=== PATIENT | female | born 1940 | race Caucasian/White ===

== ENCOUNTER 2016-07-04 10:01 | Outpatient (CLI) | payer MEDICARE, BC, OTHER ==
[2016-07-04] MEDS ORDERED: IOPAMIDOL-300 100 ML VIAL IVP ONE (12:53)
== END 2016-07-04 10:02 | disposition home or self-care (01) ==
DX: R06.00 Dyspnea, unspecified (principal)
CPT/HCPCS: 36415; 71260; 82565; Q9967

== ENCOUNTER 2016-07-27 10:57 | Outpatient (CLI) | payer MEDICARE, BC | END 2016-07-27 10:58 | disposition home or self-care (01) | LOC: LAB 10:57 | PROVIDERS: ATTEND Internal Medicine | DX: R05 Cough (principal); R50.9 Fever, unspecified; M79.1 Myalgia | CPT/HCPCS: 87275; 87276 ==

== ENCOUNTER 2016-10-26 09:46 | Outpatient (CLI) | payer MEDICARE, BC ==
--- NOTE | 2016-10-29 15:46 | Mammography Report ---
DIGITAL SCREENING MAMMOGRAM: 10/26/2016 CLINICAL INDICATION: A 76-year-old with family history of breast cancer for screening. COMPARISON: 01/2015, 07/2014, 12/2013, 06/2013, 12/2012, 11/2011. TECHNIQUE: Routine CC and MLO projections were obtained of the breasts. FINDINGS: The breasts demonstrate scattered fibroglandular densities bilaterally. Coarse and puncta te, typically benign calcifications are present. No suspicious masses, clustered microcalcifications , or regions of architectural distortion are identified. IMPRESSION: BENIGN FINDINGS. RECOMMENDATION: Routine annual screening unless otherwise clinically indicated. BIRADS CATEGORY 2 - BENIGN FINDINGS. STANDARD QUALIFYING STATEMENTS 1. This examination was reviewed with the aid of Computer-Aided Detection (CAD). 2. A negative or benign imaging report should not delay biopsy if clinically suspicious findings are present. Consider surgical consultation if warranted. More than 5% of cancers are not identified by i maging. 3. Dense breasts may obscure an underlying neoplasm. JOB #: [id number] EXT JOB #:[id number]
== END 2016-10-26 09:47 | disposition home or self-care (01) ==
LOC: DI 09:46
PROVIDERS: ATTEND Internal Medicine
DX: Z12.31 Encounter for screening mammogram for malignant neoplasm of breast (principal); Z80.3 Family history of malignant neoplasm of breast
CPT/HCPCS: 77067

== ENCOUNTER 2017-03-19 13:05 | Outpatient (CLI) | payer MEDICARE, BC ==
--- NOTE | 2017-03-19 17:39 | XRAY Report ---
TWO-VIEW CHEST: 03/19/2017 CLINICAL INDICATION: Cough. COMPARISON: CT 07/04/2016. FINDINGS: Frontal and lateral views of the chest demonstrate a normal cardiac silhouette. The lungs are clear. No effusion or pneumothorax is present. IMPRESSION: NORMAL CHEST. JOB #: [id number] EXT JOB #:[id number]
== END 2017-03-19 13:06 | disposition home or self-care (01) ==
LOC: DI 13:05
PROVIDERS: ATTEND Internal Medicine
DX: R05 Cough (principal)
CPT/HCPCS: 71020

== ENCOUNTER 2017-04-15 08:43 | Outpatient (CLI) | payer MEDICARE, BC ==
--- NOTE | 2017-04-15 13:44 | MRI Report ---
EXAM: MRI LUMBAR SPINE WITHOUT CONTRAST EXAM DATE: 04/15/2017 09:19 AM. CLINICAL HISTORY: Radiculopathy. Low back pain radiating to the right leg for 6 weeks. Fall 8 weeks a go. History of CLL. COMPARISON: 02/02/2011 radiograph. TECHNIQUE: Multiplanar, multisequence T1-weighted and fluid-sensitive sequences of the lumbar spine f rom T12 to S1 without contrast. Other: None. FINDINGS: Spinal Cord: The conus terminates at L2. The conus medullaris and cauda equina are unremarkable. Alignment: Normal. No scoliosis or spondylolisthesis. Bone Marrow: The prior radio graph demonstrates 5 nonrib-bearing lumbar vertebral bodies. No fracture s. Type I endplate changes at L4-L5. There is a benign lipoma within L1. Disk Levels/Facets: T11-T12: Unremarkable. T12-L1: Unremarkable. L1-L2: Unremarkable. L2-L3: Unremarkable. L3-L4: Small foraminal area protrusions result in minimal bilateral foraminal narrowing. L4-L5: Severe disk height loss is accompanied by desiccation. A broad-based disk bulge, moderate liga mentum flavum hypertrophy, and mild facet hypertrophy cause moderate spinal canal and mild bilateral foraminal narrowing. L5-S1: Mild right facet osteoarthritis has no neurological consequence. Musculature: Normal. No edema or fatty atrophy. Other: The partially visualized retroperitoneum is unremarkable. IMPRESSION: 1. Moderate spinal canal and mild bilateral foraminal narrowing at L4-L5 due to disk and posterior el ement degenerative changes. Comment: The following findings are so common in adults without low back pain that while we report th eir presence, they must be interpreted with caution and in the context of the clinical situation. (Re donya Saenz et al, Spine 2001) Prevalence of findings in patients without low back pain: Disk degeneration (any evidence): 92% Disk desiccation/T2 signal loss: 83% Disk height loss: 56% Disk bulge: 64% Disk protrusion: 32% Annular tear/high intensity zone: 38% [facility] Referring Provider Line: [phone] SITE ID: [id number]
== END 2017-04-15 08:44 | disposition home or self-care (01) ==
LOC: DI 08:43
PROVIDERS: ATTEND Orthopaedic Surgery
DX: M51.36 Other intervertebral disc degeneration, lumbar region (principal); M47.896 Other spondylosis, lumbar region
CPT/HCPCS: 72148

== ENCOUNTER 2017-11-22 11:09 | Outpatient (CLI) | payer MEDICARE, BC ==
--- NOTE | 2017-11-28 14:33 | Mammography Report ---
Procedure Date: 11/22/2017 Accession Number: [id number] / [id number] Procedure: [facility] - Screening Mammo Dig Bilat CPT Code: FULL RESULT: EXAM: Screening Mammo Dig Bilat DATE: 11/22/2017 11:30 AM CLINICAL HISTORY: 77-year-old with family history of breast cancer for screening TECHNIQUE: Bilateral CC and MLO views were obtained. COMPARISON: 10/26/2016, 01/19/2015, 08/06/2014, 12/30/2013, 07/15/2013, 01/05/2013, 12/31/2012, 11/28/2011, 10/30/2010, 10/25/2009 FINDINGS: The breasts demonstrate diffuse fatty replacement bilaterally. Coarse and punctate, typically benign calcifications are present. No suspicious masses, clustered microcalcifications, or regions of architectural distortion are identified. IMPRESSION: Benign findings RECOMMENDATION: Routine annual screening unless otherwise clinically indicated. BIRADS CATEGORY 2: Benign findings STANDARD QUALIFYING STATEMENTS: 1. This examination was reviewed with the aid of Computer-Aided Detection (CAD). 2. A negative or benign imaging report should not delay biopsy if clinically suspicious findings are present. Consider surgical consultation if warrented. More than 5% of cancers are not identified by imaging. 3. Dense breasts may obscure an underlying neoplasm.
== END 2017-11-22 11:10 | disposition home or self-care (01) ==
LOC: DI 11:09
PROVIDERS: ATTEND Internal Medicine
DX: Z12.31 Encounter for screening mammogram for malignant neoplasm of breast (principal)
CPT/HCPCS: 77067

== ENCOUNTER 2018-01-16 22:49 | Outpatient (CLI) | payer MEDICARE, BC ==
--- NOTE | 2018-01-17 00:44 | Ultrasound Report ---
Procedure Date: 01/17/2018 Accession Number: [id number] / [id number] Procedure: US - Duplex Ext Veins Right CPT Code: FULL RESULT: EXAM: RIGHT LOWER EXTREMITY VENOUS ULTRASOUND EXAM DATE: 01/16/2018 11:56 PM. CLINICAL HISTORY: HX DVT, R LEG PAIN AND EDEMA. COMPARISON: None. TECHNIQUE: Real-time sonographic vascular imaging was performed by the reproductive endocrinologist through the lower extremity utilizing both color-flow and Doppler spectral analysis. Multiple nutrition representative static images were saved for review. FINDINGS: Common Femoral Vein (CFV): Normal. CFV-GSV Junction: Normal. Profunda Femoral Vein (PFV): Normal. Femoral Vein (FV) Prox: Normal. Femoral Vein (FV) Mid: Normal. Femoral Vein (FV) Dist: Normal. Popliteal Vein: Normal. Posterior Tibial Veins: The visualized segments are normal. Peroneal Veins: The visualized segments are normal. Contralateral Side CFV: Normal. Other: None. IMPRESSION: No evidence for deep venous thrombosis. [facility]
== END 2018-01-16 22:50 | disposition home or self-care (01) ==
LOC: DI 22:49
PROVIDERS: ATTEND Internal Medicine
DX: M79.604 Pain in right leg (principal); R60.9 Edema, unspecified; Z86.718 Personal history of other venous thrombosis and embolism

== ENCOUNTER 2018-07-28 09:32 | Outpatient (CLI) | payer MEDICARE, BC | END 2018-07-28 09:33 | disposition critical access hospital (66) | LOC: EMS 09:32 | PROVIDERS: ATTEND Surgery | DX: M25.562 Pain in left knee (principal) | CPT/HCPCS: A0425; A0429 ==

== ENCOUNTER 2018-07-28 09:46 | Emergency (ER) | payer MEDICARE, BC ==
[2018-07-28 09:56] VITALS: BP 163/75
--- NOTE | 2018-07-28 10:50 | ED Physician Documentation ---
PD HPI LOWER EXT INJURY - Stated complaint Stated Complaint: LEFT KNEE PX - Chief complaint Chief Complaint: Ext Problem - History obtained from History obtained from: Patient - History of Present Illness PD HPI LOW EXT INJURY LOCATION: Left, Knee Type of injury: Blunt / blow (she was just kneeling doing work and shifted pressure to left knee and felt sudden pop and pain in knee. There is swelling of the knee. Pain with ROM and weight bearing.) Timing - details: Abrupt onset, Still present Review of Systems Constitutional: denies: Fever, Chills Nose: denies: Rhinorrhea / runny nose, Congestion Throat: denies: Sore throat Respiratory: denies: Cough Skin: denies: Abrasion (s), Laceration (s) Neurologic: denies: Focal weakness, Numbness PD PAST MEDICAL HISTORY - Past Medical History Past Medical History: Yes Cardiovascular: Hypertension, Deep vein thrombosis, Pulmonary embolism Respiratory: None Endocrine/Autoimmune: None GI: GERD : None HEENT: Chronic vision loss, Glaucoma, Dental implants Psych: None Musculoskeletal: Chronic back pain Derm: None - Past Surgical History 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 HEENT: Cataracts - Present Medications Home Medications: Ambulatory Orders Medication Instructions Recorded Confirmed Omeprazole [PriLOSEC] 20 mg PO DAILY 09/14/13 05/14/18 RX: Hydrochlorothiazide 25 mg PO DAILY 09/14/13 05/14/18 Aspirin [Children's Aspirin] 81 mg PO DAILY 09/15/13 05/14/18 RX: Naproxen 375 mg PO BID #20 tablet 07/28/18 RX: Tramadol HCl 50 mg PO Q6H PRN #20 tablet 07/28/18 - Allergies Allergies/Adverse Reactions: Allergies Allergy/AdvReac Type Severity Reaction Status Date / Time morphine Allergy Nausea Unverified 11/11/13 15:38 Penicillins Allergy Nausea Unverified 11/11/13 15:37 codeine AdvReac Mild Nausea Verified 09/15/13 18:12 hydrocodone bitartrate * AdvReac Mild Nausea Verified 09/15/13 18:13 [From Vicodin] oxycodone HCl * AdvReac Mild Nausea Verified 09/15/13 18:13 [From Percocet] - Social History Does the pt smoke?: No Smoking Status: Never smoker PD ED PE NORMAL - Vitals Vital signs reviewed: Yes - General General: Alert and oriented X 3, No acute distress, Well developed/nourished - Derm Derm: Normal color, Warm and dry - Extremities Extremities: Other (left knee with mild effusion, limited ROM due to pain. Tender diffusely, but most anteriorly. Stress testing is not tender for valgus/varus, hurts with Drawer and too painful to test on laxity. No gross laxi ty. Foot rotation causes knee pain suggesting meniscal. ) - Neuro Neuro: Alert and oriented X 3, No motor deficit, No sensory deficit Results - Vitals Vitals: Vital Signs - 24 hr 07/28/18 09:54 Temperature 36.6 C Heart Rate 67 Respiratory 16 Rate Blood Pressure 163/75 H O2 Saturation 96 Oxygen O2 Source Room air - Rads (name of study) knee xray Radiology: Prelim report reviewed (no fractures), EMP read contemporaneously, See rad report PD MEDICAL DECISION MAKING - ED course Complexity details: considered differential (sounds likely to be meniscal injury, though consider ACL. ), d/w patient Departure - Departure Disposition: 01 Home, Self Care Clinical Impression: Knee strain Qualifiers: Encounter type: initial encounter Laterality: left Qualified Code(s): S86.912A - Strain of unspecified muscle(s) and tendon(s) at lower leg level, left leg, initial encounter Acute meniscal injury of knee Qualifiers: Encounter type: initial encounter Laterality: left Qualified Code(s): S83.8X2A - Sprain of other specified parts of left knee, initial encounter Condition: Stable Record reviewed to determine appropriate education?: Yes Instructions: ED Meniscal Injury Knee Poss Follow-Up: Belen Ryan MD [Primary Care Provider] - Alfonso Thornton MD [Provider Admit Priv/Credential] - Prescriptions: RX: Naproxen 375 mg PO BID #20 tablet RX: Tramadol HCl 50 mg PO Q6H PRN #20 tablet PRN Reason: Pain Comments: Use a knee immobilizer when up and around to protect the ligaments and cartilage. Take some of the weight off with the walker as needed. Use an anti- inflammatory such as naproxen twice daily for the next 7-10 days. Take it with food. Add Tylenol and/or tramadol if needed for pains. Follow-up with orthopedics later this week or next week if to see how much improvement there is band., Call for an appointment. This sounds likely to have been a meniscal injury and majority of these will get better with just conservative treatment. Discharge Date/Time: 07/28/18 12:29
[2018-07-28] MEDS ORDERED: traMADol 50 MG TABLET PO STA (11:19)
[2018-07-28] MEDS ORDERED: ACETAMINOPHEN 325 MG TABLET PO STA (11:19)
--- NOTE | 2018-07-28 12:52 | XRAY Report ---
Reason: left knee injury Procedure Date: 07/28/2018 Accession Number: [id number] / [id number] Procedure: XR - Knee 4 View LT CPT Code: FULL RESULT: EXAM: LEFT KNEE RADIOGRAPHY EXAM DATE: 07/28/2018 10:54 AM. CLINICAL HISTORY: Left knee injury. COMPARISON: None. TECHNIQUE: 4 views. FINDINGS: Bones: No acute fracture or bony lesion. No bony erosions. Joints: Normal alignment. Small left knee effusion. No dislocation. Medial and lateral compartment chondrocalcinosis. Soft Tissues: No radiopaque foreign bodies. IMPRESSION: 1. No acute osseous abnormalities. 2. Small left knee effusion. [facility]
== END 2018-07-28 12:29 | disposition home or self-care (01) ==
LOC: EDUNIT# → ED 09:46
DX: S86.912A Strain of unspecified muscle(s) and tendon(s) at lower leg level, left leg, initial encounter (principal); S83.8X2A Sprain of other specified parts of left knee, initial encounter; X50.1XXA Overexertion from prolonged static or awkward postures, initial encounter; Y93.E9 Activity, other interior property and clothing maintenance; I10 Essential (primary) hypertension; Z86.718 Personal history of other venous thrombosis and embolism; Z86.711 Personal history of pulmonary embolism; Z79.82 Long term (current) use of aspirin
CPT/HCPCS: 73564; 99283; A9270

== ENCOUNTER 2018-08-28 12:11 | Outpatient (CLI) | payer MEDICARE, BC ==
--- NOTE | 2018-08-29 11:16 | MRI Report ---
Reason: PAIN INSTABILITY Procedure Date: 08/28/2018 Accession Number: [id number] / [id number] Procedure: MRI - Knee LT W/O CPT Code: FULL RESULT: EXAM: LEFT KNEE MRI WITHOUT CONTRAST EXAM DATE: 08/28/2018 01:10 PM. CLINICAL HISTORY: Left knee pain and instability. COMPARISON: KNEE 3 VIEW LT 08/11/2018 1:22 PM. TECHNIQUE: Multiplanar, multisequence T1-weighted and fluid-sensitive sequences of the knee without contrast. Other: None. FINDINGS: Bones and Articular Cartilage: No acute fracture or bone lesions. No marrow edema. Grade 2 chondromalacia at the medial femoral condyle and medial tibial plateau. Grade 2 chondromalacia at the lateral femoral condyle. Grade 3 chondromalacia at the posterior aspect of the lateral tibial plateau. Small subcortical cyst and marrow edema at the lateral patellar facet. No patellar subluxation. Medial Meniscus: The medial meniscus is intact. Lateral Meniscus: There is near-complete type diskoid lateral meniscus. There is inferior surface fraying at the diskoid lateral meniscus. Cruciate Ligaments: The anterior and posterior cruciate ligaments are intact. Collateral Ligaments: The medial collateral and lateral collateral ligamentous structures are intact. Tendons: The quadriceps, patellar, semimembranosus, and popliteus tendons are unremarkable. Musculature: No edema or fatty atrophy. Other: Small joint effusion. No popliteal cyst. No loose bodies. The medial and lateral retinacula are intact. The subcutaneous tissues and fat pads are unremarkable. IMPRESSION: 1. Chondromalacia at the medial and lateral compartments. 2. Near-complete type diskoid lateral meniscus. Inferior surface fraying at the diskoid lateral meniscus. 3. Small joint effusion. [facility] MUSCULOSKELETAL RADIOLOGY SECTION
== END 2018-08-28 12:12 | disposition home or self-care (01) ==
LOC: DI 12:11
PROVIDERS: ATTEND Internal Medicine
DX: M94.262 Chondromalacia, left knee (principal); M25.462 Effusion, left knee; M23.301 Other meniscus derangements, unspecified lateral meniscus, left knee

== ENCOUNTER 2018-11-19 11:12 | Outpatient (CLI) | payer MEDICARE, BC | END 2018-11-19 11:13 | disposition home or self-care (01) | LOC: DI 11:12 | PROVIDERS: ATTEND Internal Medicine | DX: R01.1 Cardiac murmur, unspecified (principal) | CPT/HCPCS: 93306 ==

== ENCOUNTER 2019-02-04 16:19 | Outpatient (CLI) | payer MEDICARE, BC ==
--- NOTE | 2019-02-04 17:01 | Mammography Report ---
Reason: SCREENING MAMMO Procedure Date: 02/04/2019 Accession Number: [id number] / [id number] Procedure: [facility] - Screening Mammo w/Anselmo CPT Code: FULL RESULT: EXAM: Screening Mammo w/Anselmo DATE: 02/04/2019 4:49 PM CLINICAL HISTORY: Routine screening. No reported personal history of breast cancer. Family history of breast cancer in mother in her 50s. TECHNIQUE: (B) - Bilateral CC and MLO views were obtained. COMPARISON: 11/22/2017 through 08/06/2014. PARENCHYMAL PATTERN: (A) - The breasts demonstrate scattered fibroglandular densities bilaterally. FINDINGS: Bilateral breasts: There are no suspicious masses, calcifications, or areas of distortion. IMPRESSION: Negative examination. BI-RADS category 1. RECOMMENDATION: (ANNUAL) - Recommend routine annual screening mammography. BI-RADS CATEGORY: STANDARD QUALIFYING STATEMENTS: 1. This examination was not reviewed with the aid of Computer-Aided Detection (CAD). 2. A negative or benign imaging report should not preclude biopsy if clinically suspicious findings are present. 3. Dense breasts may obscure an underlying neoplasm. 4. This examination was reviewed with the aid of 3D breast imaging (tomosynthesis).
== END 2019-02-04 16:20 | disposition home or self-care (01) ==
LOC: DI 16:19
PROVIDERS: ATTEND Internal Medicine
DX: Z12.31 Encounter for screening mammogram for malignant neoplasm of breast (principal); Z80.3 Family history of malignant neoplasm of breast
CPT/HCPCS: 77063; 77067

== ENCOUNTER 2020-02-23 11:47 | Emergency (ER) | payer MEDICARE, BC ==
--- NOTE | 2020-02-23 14:24 | ED Physician Documentation ---
History of Present Illness - Stated complaint Stated Complaint: L SIDE PX - Chief complaint Chief Complaint: Trauma Ch/Bk - Additonal information Additional information: 79-year-old female presents to the emergency department with left lower anterior rib pain after a fall about 1 week ago. She reports walking her dog and stepped onto uneven pavement and fell forward onto her left side. She denies any loss of consciousness and has no neck pain however she is exquisitely tender with palpation of the lower anterior ribs. She denies that she has shortness of breath no hemoptysis. She is mostly concerned that the pain is not getting be tter and wants to make sure there is no fracture. Review of Systems Constitutional: denies: Fever, Chills Ears: denies: Loss of hearing, Ear pain Nose: denies: Rhinorrhea / runny nose, Congestion, Epistaxis Cardiac: denies: Chest pain / pressure, Palpitations, Pedal edema, Calf pain Respiratory: denies: Dyspnea, Cough, Hemoptysis, Wheezing GI: denies: Abdominal Pain, Abdominal Swelling, Nausea, Vomiting : denies: Dysuria, Frequency, Unable to Void, Incontinent, LMP, Irregular menses Skin: denies: Rash, Lesions, Abrasion (s) Musculoskeletal: reports: Other (left lower anterior rib pain). 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 HEENT: Cataracts - Present Medications Home Medications: Ambulatory Orders Medication Instructions Recorded Confirmed Hydrochlorothiazide 25 mg PO DAILY 09/14/13 12/09/19 Omeprazole [PriLOSEC] 20 mg PO DAILY 09/14/13 12/09/19 Aspirin [Children's Aspirin] 81 mg PO DAILY 09/15/13 12/09/19 Anastrozole 1 mg PO DAILY 02/04/19 12/09/19 Multivitamin [Multivitamins] 1 tab PO DAILY 03/11/19 12/09/19 Naproxen 375 mg PO PRN PRN 03/11/19 12/09/19 - Allergies Allergies/Adverse Reactions: Allergies Allergy/AdvReac Type Severity Reaction Status Date / Time morphine Allergy Nausea Verified 02/23/20 12:06 Penicillins Allergy Nausea Verified 02/23/20 12:06 codeine AdvReac Mild Nausea Verified 02/23/20 12:06 hydrocodone bitartrate * AdvReac Mild Nausea Verified 02/23/20 12:06 [From Vicodin] oxycodone HCl * AdvReac Mild Nausea Verified 02/23/20 12:06 [From Percocet] - Social History Does the pt smoke?: No Smoking Status: Never smoker PD ED PE EXPANDED - General General: Alert, No acute distress, Well developed/nourished. No: Anxious, In Pain - Eyes Eyes: PERRL, Normal accommodation - Neck Neck: Supple w/out meningeal sx. No: Stiff neck, Adenopathy, Limited ROM - Cardiac Cardiac: Regular Rate, Femoral strong equal, Pedal strong equal, Cap refill < 2 sec. No: Murmur Present - Respiratory Respiratory: Clear to ausultation ligia, Other (tenderness with palpation lowr aterior and laterl rib wall. no ecchymosis/crepitus). No: Distress, Labored, Retractions, Wheezing, Rhonchi - Abdomen Abdomen: Normal Bowel sounds. No: Tender to palpation - Extremities Extremities: Normal - Neuro Neuro: Alert and Oriented X 3, Normal gait, Normal speech - GCS Eye Opening: Spontaneous Motor: Obeys Commands Verbal: Oriented Total: 15 Results - Vitals Vitals: Vital Signs - 24 hr 02/23/20 02/23/20 12:06 13:56 Temperature 36.7 C 36.6 C Heart Rate 77 69 Respiratory 20 16 Rate Blood Pressure 180/67 H 167/87 H O2 Saturation 96 98 Oxygen O2 Source Room air - Rads (name of study) cxr Radiology: Final report received (Gross displaced left rib fracture. No acute cardiopulmonary pathology) PD MEDICAL DECISION MAKING - ED course Complexity details: reviewed results, d/w patient ED course: The ER with left lower lateral anterior rib pain after fall approximately 1 week ago. The pain has not improved and she is concerned that she may have rib fractures. She is using incentive spirometry at home. - Straight does not reveal any obviously displaced or gross rib fracture. No pneumothorax. At this time she may have an occult rib fracture but without significant displacement or pneumothorax treatment would remain the same at this time. I recommend she continue incentive spirometry as well as use Tylenol and a limited amount of NSAID at home. Her vital signs are unremarkable, she has no hypoxia and her exam is otherwise very reassuring. Advised to follow-up with PCP emergent return precautions discussed. Departure - Departure Disposition: Home, Self Care Clinical Impression: Rib pain on left side Condition: Stable Record reviewed to determine appropriate education?: Yes Instructions: ED Contusion Chest Wall Follow-Up: Belen Ryan MD [Primary Care Provider] - Within 1 week Comments: The x-ray does not show any obviously broken ribs. I would recommend that you continue to use the incentive spirometer at home as you have been. It is okay to take Tylenol and ibuprofen as you have for any discomfort. Return to the emergency department if you have fevers difficulty breathing bloody sputum or feel that your symptoms are not improving most likely that you do have bruising
--- NOTE | 2020-02-23 15:14 | XRAY Report ---
PROCEDURE: Ribs w/PA Chest LT INDICATIONS: fall/r/o fx TECHNIQUE: 2 views of the left ribs were acquired, along with a single view chest. COMPARISON: None FINDINGS: Surgical changes and devices: None. Bones and chest wall: No fractures or dislocations. No suspicious bony lesions. Overlying soft tis sues appear unremarkable. Lungs and pleura: No pleural effusions or pneumothorax. Lungs appear clear. Mediastinum: Mediastinal contours appear normal. Heart size is normal. IMPRESSION: No gross displaced left rib fracture. No acute cardiopulmonary pathology. Reviewed by: Fawad Marie MD on 02/23/2020 3:13 PM PDT Approved by: Fawad Marie MD on 02/23/2020 3:13 PM PDT Station ID: [id number]
[2020-02-23 15:20] VITALS: BP 159/82
== END 2020-02-23 15:28 | disposition home or self-care (01) ==
LOC: ED 11:47
DX: R07.81 Pleurodynia (principal); W01.0XXA Fall on same level from slipping, tripping and stumbling without subsequent striking against object, initial encounter; Y93.K1 Activity, walking an animal; Y92.480 Sidewalk as the place of occurrence of the external cause; I10 Essential (primary) hypertension; Z86.718 Personal history of other venous thrombosis and embolism; Z86.711 Personal history of pulmonary embolism; Z79.82 Long term (current) use of aspirin
CPT/HCPCS: 99282; 99283

== ENCOUNTER 2020-03-01 14:14 | Outpatient (CLI) | payer MEDICARE, BC | END 2020-03-01 14:15 | disposition critical access hospital (66) | LOC: EMS 14:14 | PROVIDERS: ATTEND Surgery | DX: S01.01XA Laceration without foreign body of scalp, initial encounter (principal); W01.0XXA Fall on same level from slipping, tripping and stumbling without subsequent striking against object, initial encounter; Y92.512 Supermarket, store or market as the place of occurrence of the external cause | CPT/HCPCS: A0425; A0429 ==

== ENCOUNTER 2020-03-01 14:32 | Emergency (ER) | payer MEDICARE, BC ==
[2020-03-01] MEDS: SODIUM CHLORIDE 0.9% 1,000 ML IV STA (15:32)
[2020-03-01] MEDS: ONDANSETRON 4 MG/2 ML VIAL IVP STA (15:32)
[2020-03-01 15:53] LABS: BASOPHILS % (AUTO) 0.2 %; EOSINOPHILS % (AUTO) 1.8 %; HGB - HEMOGLOBIN 12.8 g/dL (12.0-16.0); MEAN CORPUSCULAR HEMOGLOBIN 26.8 pg (27.0-31.0); MEAN CORPUSCULAR HGB CONC 30.8 g/dL (32.0-36.0); MEAN PLATELET VOLUME 8.7 fL (7.9-10.8); MONOCYTES % (AUTO) 4.5 %; NEUTROPHILS % (AUTO) 41.1 %; PLT - PLATELET COUNT 224 10^3/uL (130-450); RED BLOOD COUNT 4.77 10^6/uL (4.20-5.40); WHITE BLOOD COUNT 17.4 x10^3/uL (4.8-10.8)
[2020-03-01 15:55] LABS: ABNORMAL LYMPHS % (MANUAL) 0 %; BAND NEUTROPHILS % (MANUAL) 0 %
[2020-03-01 16:03] LABS: ALBUMIN 4.2 g/dL (3.2-5.5); ALBUMIN/GLOBULIN RATIO 1.4 (1.0-2.2); BILIRUBIN,TOTAL 0.6 mg/dL (0.2-1.0); CALCIUM 9.1 mg/dL (8.5-10.3); CREATININE 0.9 mg/dL (0.4-1.0); TOTAL PROTEIN 7.2 g/dL (6.7-8.2)
--- NOTE | 2020-03-01 16:40 | ED Physician Documentation ---
PD HPI HEAD INJURY - Stated complaint Stated Complaint: FALL/HEAD LAC - Chief complaint Chief Complaint: Trauma Ch/Bk - History obtained from History obtained from: Patient, Family - History of Present Illness Mechanism of head injury: Fell Where head injury occurred: Other (store) Timing - onset: Today Location of injury: Back Quality of pain: Pain, Throbbing Associated symptoms: LOC, Amnesia, Nausea / vomiting, Neck pain. No: AMS, Paresthesias, Seizures, Ear drainage, Nasal drainage Symptoms improve with: Rest Symptoms worsen with: Palpation, Movement Contributing factors: Anticoagulated Similar symptoms before: Has not had sx before Recently seen: Emergency Dept - Additional information Additional information: 79-year-old female was in the store today when she had a fall falling backwards onto the back of her head. She tripped over a stand. She had a brief loss of consciousness and now has a headache and some neck pain. She denies any numbness or tingling or weakness. She has minimal nausea. She has some anxiety. She is on aspirin but not any other blood thinner. She has a remote history of DVT/PE. She has had 5 falls in the past 2 months. She denies tremor. She is on lisinopril/HCTZ for hypertension. Review of Systems Constitutional: denies: Fever Eyes: denies: Decreased vision Ears: denies: Ear pain Nose: denies: Congestion Throat: denies: Sore throat Cardiac: denies: Chest pain / pressure, Palpitations Respiratory: denies: Dyspnea, Cough GI: reports: Nausea. denies: Abdominal Pain, Vomiting : denies: Dysuria, Frequency Skin: denies: Rash Musculoskeletal: reports: Neck pain. denies: Back pain, Extremity pain Neurologic: reports: Headache, Head injury, LOC. 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 HEENT: Cataracts - Present Medications Home Medications: Ambulatory Orders Medication Instructions Recorded Confirmed Hydrochlorothiazide 25 mg PO DAILY 09/14/13 12/09/19 Omeprazole [PriLOSEC] 20 mg PO DAILY 09/14/13 12/09/19 Aspirin [Children's Aspirin] 81 mg PO DAILY 09/15/13 12/09/19 Anastrozole 1 mg PO DAILY 02/04/19 12/09/19 Multivitamin [Multivitamins] 1 tab PO DAILY 03/11/19 12/09/19 Naproxen 375 mg PO PRN PRN 03/11/19 12/09/19 - Allergies Allergies/Adverse Reactions: Allergies Allergy/AdvReac Type Severity Reaction Status Date / Time morphine Allergy Nausea Verified 03/01/20 14:40 Penicillins Allergy Nausea Verified 03/01/20 14:40 codeine AdvReac Mild Nausea Verified 03/01/20 14:40 hydrocodone bitartrate * AdvReac Mild Nausea Verified 03/01/20 14:40 [From Vicodin] oxycodone HCl * AdvReac Mild Nausea Verified 03/01/20 14:40 [From Percocet] - Social History Does the pt smoke?: No Smoking Status: Never smoker PD ED PE NORMAL - Vitals Vital signs reviewed: Yes (hypertensive) - General General: Alert and oriented X 3, No acute distress, Well developed/nourished - HEENT HEENT: PERRL, EOMI - Neck Neck: Supple, no meningeal sign, Other - Cardiac Cardiac: RRR, No murmur - Respiratory Respiratory: No respiratory distress, Clear bilaterally - Abdomen Abdomen: Normal bowel sounds, Soft, Non tender, Non distended, No organomegaly - Back Back: No CVA TTP, No spinal TTP - Derm Derm: Normal color, Warm and dry, No rash - Extremities Extremities: No deformity, No edema - Neuro Neuro: Alert and oriented X 3, purchasing/receiving 2-12 intact, No motor deficit, No sensory deficit, Normal speech Eye Opening: Spontaneous Motor: Obeys Commands Verbal: Oriented GCS Score: 15 - Psych Psych: Normal mood, Normal affect Results - Vitals Vitals: Vital Signs - 24 hr 03/01/20 03/01/20 03/01/20 14:40 14:45 16:45 Temperature 36.2 C L Heart Rate 70 72 75 Respiratory 16 16 16 Rate Blood Pressure 159/75 H 155/79 H 148/75 H O2 Saturation 99 99 99 Oxygen O2 Source Room air - Labs Labs: Laboratory Tests 03/01/20 03/01/20 15:40 15:40 WBC 17.4 H RBC 4.77 Hgb 12.8 Hct 41.5 MCV 87.0 MCH 26.8 L MCHC 30.8 L RDW 15.0 Plt Count 224 MPV 8.7 Neut # (Auto) Not Reportable Lymph # (Auto) Not Reportable Harlan # (Auto) Not Reportable Eos # (Auto) Not Reportable Baso # (Auto) Not Reportable Absolute Nucleated RBC Not Reportable Total Counted 100 Band Neuts % (Manual) 0 Abnorm Lymph % (Manual) 0 Nucleated RBC % Not Reportable Neutrophils # (Manual) 6.4 Lymphocytes # (Manual) 10.4 H Monocytes # (Manual) 0.5 Eosinophils # (Manual) 0.0 Basophils # (Manual) 0.0 Differential Comment MANUAL DIFFERENTIAL Manual Slide Review Indicated Platelet Estimate NORMAL (130-450,000) Platelet Morphology NORMAL APPEARANCE RBC Morph Micro Appear 1+ ANISOCYTOSIS Sodium 133 L Potassium 3.8 Chloride 95 L Carbon Dioxide 27 Anion Gap 11.0 BUN 17 Creatinine 0.9 Estimated GFR (MDRD) 61 L Glucose 97 Calcium 9.1 Total Bilirubin 0.6 AST 25 ALT 20 Alkaline Phosphatase 92 Total Protein 7.2 Albumin 4.2 Globulin 3.0 Albumin/Globulin Ratio 1.4 Lipase 35 - Rads (name of study) ct cervical spine Radiology: Prelim report reviewed (Impression: Multilevel degenerative changes without visualized fracture. ), EMP read indepedently, See rad report CT head without Radiology: Prelim report reviewed (Impression: 1. Widened hyperdensities within the anterior falx most consistent with hemorrhage.), EMP read indepedently, See rad report Procedures - IVC sono (time) 1520 Bedside IVC sono: IVC measures (cm) (1.22), Dehydration (est 1 liter deficit) PD MEDICAL DECISION MAKING - ED course Complexity details: reviewed old records, reviewed results, re-evaluated p atient, considered differential, d/w patient, d/w family ED course: 79-year-old female with a round level fall striking the back of her head and having loss of consciousness has a small anterior falx bleed. She is not on the anticoagulation we had previously presumed. She has a laceration to the occiput about 3.5cm. This is not repaired prior to transport as the transport team arrived as we were preparing for repair. The patient is mildly dehydrated on interrogation of the inferior vena cava and she is administered saline as well. Dr. Fransisco menjivar the emergency department doctor at [facility] is consulted in the case and accepts patient in transfer. She recommends administration of PCC. At the time my conversation with her the thought was the patient was anticoagulated and she is not. This was not administered. Departure - Departure Disposition: 02 Transfer Acute Care Hosp Clinical Impression: Dehydration, Frequent falls Traumatic intracerebral hemorrhage with loss of consciousness Qualifiers: Encounter type: initial encounter Laterality: unspecified laterality Qualified Code(s): S06.369A - Traumatic hemorrhage of cerebrum, unspecified, with loss of consciousness of unspecified duration, initial encounter Occipital scalp laceration Qualifiers: Encounter type: initial encounter Qualified Code(s): S01.01XA - Laceration without foreign body of scalp, initial encounter Condition: Stable
[2020-03-01 16:43] LABS: LYMPHOCYTES # (MANUAL) 10.4 10^3/uL (1.5-3.5); LYMPHOCYTES % (MANUAL) 60 %; MONOCYTES # (MANUAL) 0.5 10^3/uL (0.0-1.0)
[2020-03-01 16:44] LABS: PLATELET ESTIMATE, MANUAL NORMAL (130-450,000) (NORMAL); PLATELET MORPHOLOGY NORMAL APPEARANCE (NORMAL); RBC MORPHOLOGY (MULTIPLE) 1+ ANISOCYTOSIS (NORMAL)
--- NOTE | 2020-03-01 16:44 | CT Report ---
PROCEDURE: HEAD WO INDICATIONS: head injury TECHNIQUE: Noncontrast 4.5 mm thick angled axial sections acquired from the foramen magnum to the vertex. For r adiation dose reduction, the following was used: automated exposure control, adjustment of mA and/or kV according to patient size. COMPARISON: None. FINDINGS: Image quality: Excellent. The ventricular system and cortical sulci demonstrate atrophy, consistent for patient's stated age. There are areas of hypodensity in the periventricular and subcortical white matter. There is a widene d appearance of hyperdensity within the anterior falx with a greatest transverse dimension measuring 3 mm. No mass lesion or midline shift. Brainstem is unremarkable. Right posterior parietal occipita l scalp hematoma is present. Globes are symmetrical. Sinuses are aerated. Osseous structures are intact. IMPRESSION: 1. Widened hyperdensity within the anterior falx most consistent with hemorrhage. The above findings were discussed with Dr. Jason Joyce on 03/01/2020 at 4:30 PM. Reviewed by: Allyn Rider MD on 03/01/2020 4:43 PM PDT Approved by: Allyn Rider MD on 03/01/2020 4:43 PM PDT Station ID: [id number]
[2020-03-01 16:45] LABS: DIFFERENTIAL COMMENT MANUAL DIFFERENTIAL
--- NOTE | 2020-03-01 16:48 | CT Report ---
PROCEDURE: CERVICAL SPINE WO INDICATIONS: poly trauma head and neck injury TECHNIQUE: Noncontrast 3 mm thick sections acquired from the skull base to the T4 level. Sagittal and coronal r eformats were then constructed. For radiation dose reduction, the following was used: automated exp osure control, adjustment of mA and/or kV according to patient size. COMPARISON: None. FINDINGS: Image quality: Excellent. Bones: No fractures or dislocations. Visualized superior ribs are intact. Multilevel degenerative changes including severe disc space narrowing at C3-4, C4-5, C5-6, C6-7 and C7-T1. There is trace ret rolisthesis of C4 on C5. Soft tissues: Prevertebral soft tissues are normal in thickness. No paravertebral hematomas. No ap ical pneumothoraces. IMPRESSION: Multilevel degenerative changes without visualized fracture. Reviewed by: Allyn Rider MD on 03/01/2020 4:46 PM PDT Approved by: Allyn Rider MD on 03/01/2020 4:46 PM PDT Station ID: [id number]
[2020-03-01 17:22] LABS: BILIRUBIN,URINE NEGATIVE (NEGATIVE); CLARITY,URINE CLEAR (CLEAR); GLUCOSE, URINE (UA) NEGATIVE (NEGATIVE); KETONES,URINE (UA) TRACE mg/dL (NEGATIVE); LEUKOCYTE ESTERASE, URINE TRACE (NEGATIVE); NITRITE,URINE NEGATIVE (NEGATIVE); OCCULT BLOOD,URINE NEGATIVE (NEGATIVE); PROTEIN,URINE NEGATIVE (NEGATIVE); UROBILINOGEN,URINE 0.2 (NORMAL) E.U./dL (NORMAL)
[2020-03-01 17:36] LABS: BACTERIA,URINE None Seen /HPF (None Seen); RBC,URINE None Seen /HPF (0-5); SQUAMOUS EPITHELIAL CELL,UR MOD Squamous (<= Few)
[2020-03-01 18:06] VITALS: BP 168/89
== END 2020-03-01 18:11 | disposition short-term general hospital (02) ==
LOC: EDUNIT# → ED 14:32
DX: S06.369A Traumatic hemorrhage of cerebrum, unspecified, with loss of consciousness of unspecified duration, initial encounter (principal); S01.01XA Laceration without foreign body of scalp, initial encounter; W01.0XXA Fall on same level from slipping, tripping and stumbling without subsequent striking against object, initial encounter; Y92.512 Supermarket, store or market as the place of occurrence of the external cause; E86.0 Dehydration; Z91.81 History of falling; I10 Essential (primary) hypertension; Z86.718 Personal history of other venous thrombosis and embolism; Z79.82 Long term (current) use of aspirin
CPT/HCPCS: 36415; 70450; 72125; 80053; 81001; 81003; 83690; 85025; 87086; 96374; 99285

== ENCOUNTER 2020-03-14 16:02 | Outpatient (CLI) | payer MEDICARE, BC ==
--- NOTE | 2020-03-14 16:48 | XRAY Report ---
PROCEDURE: Chest 2 View X-Ray INDICATIONS: COUGH,WHEEZING,DYSPNEA TECHNIQUE: 2 view(s) of the chest. COMPARISON: None. FINDINGS: Surgical changes and devices: None. Lungs and pleura: No pleural effusions or pneumothorax. Lungs are clear. Mediastinum: Mediastinal contours are normal. Heart size is normal. Bones and chest wall: No suspicious bony abnormalities. Soft tissues appear unremarkable. IMPRESSION: Source and wheezing is not found. No pneumonia is suspected. Reviewed by: Mietsh Dacosta MD on 03/14/2020 4:46 PM PDT Approved by: Mitesh Dacosta MD on 03/14/2020 4:46 PM PDT Station ID: [id number]
== END 2020-03-14 16:03 | disposition home or self-care (01) ==
LOC: DI 16:02
PROVIDERS: ATTEND Internal Medicine
DX: R05 Cough (principal); R06.2 Wheezing
CPT/HCPCS: 71046

== ENCOUNTER 2020-06-02 11:46 | Outpatient (CLI) | payer MEDICARE, BC ==
--- NOTE | 2020-06-03 05:37 | Mammography Report ---
BILATERAL DIGITAL SCREENING MAMMOGRAM 3D/2D: 06/02/2020 CLINICAL: Routine screening. Comparison is made to exams dated: 02/04/2019 mammogram, 11/22/2017 mammogram, 10/26/2016 mammogram, and 01/19/2015 mammogram - [facility]. The tissue of both breasts is predominantly fatt y. There are benign diffuse calcifications in both breasts. No significant masses, calcifications, or other findings are seen in either breast. There has been no significant interval change. IMPRESSION: BENIGN There is no mammographic evidence of malignancy. A 1 year screening mammogram is recommended. This exam was interpreted at Station ID: [id number]. NOTE: For mammograms, a report in lay terms will be sent to the patient. Approximately 15% of breast malignancies will not be visualized mammographically. In the management of a palpable breast mass, a negative mammogram must not discourage biopsy of a clinically suspicious lesion. Electronically Signed By: Bj Nixon acr/penrad:06/02/2020 12:40:38 ACR BI-RADS Category 2: Benign Finding(s) 3342F PARENCHYMAL PATTERN: (F) - The breast(s) demonstrate(s) diffuse fatty replacement. BI-RADS CATEGORY: (2) - 2 RECOMMENDATION: (ANNUAL) - Recommend routine annual screening mammography. [id number] 1 year screening LATERALITY: (B)
== END 2020-06-02 11:47 | disposition home or self-care (01) ==
LOC: DI 11:46
PROVIDERS: ATTEND Internal Medicine
DX: Z12.31 Encounter for screening mammogram for malignant neoplasm of breast (principal)
CPT/HCPCS: 77067

== ENCOUNTER 2020-07-14 15:44 | Outpatient (CLI) | payer MEDICARE, OTHER ==
--- NOTE | 2020-07-14 18:27 | MRI Report ---
PROCEDURE: Cervical Spine W/O INDICATIONS: ARM PARESTHESIA TECHNIQUE: Noncontrast sagittal T1 spin echo and T2 fast spin echo, sagittal STIR, foraminal oblique sagittal T2 fast spin echo, and axial gradient echo or T2 fast spin echo through the cervical spine. COMPARISON: Correlation is made with prior cervical spine CT 03/01/2020 FINDINGS: Image quality: Motion artifact is noted. Alignment and Curvature: There is minimal anterolisthesis seen at the C3-C4 level. There is minimal retrolisthesis seen at the C4-C5 level. Bone Marrow: Marrow demonstrates normal overall signal. Spinal Cord: Visualized spinal cord has normal size and signal. No cerebellar tonsillar herniation. Paraspinous Soft Tissues: No paravertebral masses. Prevertebral soft tissues are normal in thicknes s. C2-C3: Moderate loss of disc height and signal are seen. Mild disc osteophyte complex is seen. M ild to moderate facet hypertrophy is seen at this level. Mild to moderate bilateral neuroforaminal na rrowing can be seen, right worse than left. No significant central canal narrowing can be seen. C3-C4: At least moderate loss of disc height and disc signal can be seen. Moderate disc osteophyte complex is seen, which is eccentric to the left. Mild facet hypertrophy is seen. There is moderate to severe bilateral neuroforaminal narrowing seen. Mild central canal narrowing is seen. C4-C5: Moderate to severe loss of disc height and disc signal can be seen. At least moderate disc os teophyte complex is seen, which is eccentric to the right. Mild to moderate facet hypertrophy is seen . Moderate to severe bilateral neuroforaminal narrowing can be seen. Moderate central canal narrowin g is seen. Associated mass effect is seen upon the ventral spinal cord. C5-C6: Moderate loss of disc height and signal are seen. At least moderate disc osteophyte complex i s seen, which is slightly eccentric to the right. To moderate facet hypertrophy is seen. There is mod erate to severe bilateral neuroforaminal narrowing seen at this level. Mild to moderate central canal narrowing can be seen. C6-C7: Moderate loss of disc height and signal are seen. Moderate disc osteophyte complex is seen, w ith a mild central disc osteophyte protrusion. There is moderate to severe left-sided and at least mo derate right-sided neuroforaminal narrowing seen. Mild to moderate central canal narrowing can be see n at this level. C7-T1: At least moderate loss of disc height and disc signal can be seen. Reactive marrow endplate changes are seen, which are on hypointense on T1-weighted and hyperintense T2-weighted imaging, wit h associated increased STIR signal. These imaging findings are most consistent with endplate edema (M odic type 1 change). Mild to moderate disc osteophyte complex is seen at this level. There is modera te right-sided and mild to moderate left-sided neuroforaminal narrowing seen. Minimal central canal n arrowing is seen. IMPRESSION: Multiple levels of relatively prominent cervical spine degenerative change can be seen. Reviewed by: Kenny Willis MD on 07/14/2020 5:26 PM AKST Approved by: Kenny Willis MD on 07/14/2020 5:26 PM AK Station ID: [id number]
== END 2020-07-14 15:45 | disposition home or self-care (01) ==
LOC: DI 15:44
PROVIDERS: ATTEND Internal Medicine
DX: M47.812 Spondylosis without myelopathy or radiculopathy, cervical region (principal); M50.31 Other cervical disc degeneration, high cervical region; M48.02 Spinal stenosis, cervical region; M48.03 Spinal stenosis, cervicothoracic region

== ENCOUNTER 2020-08-11 14:23 | Outpatient (CLI) | payer MEDICARE ==
--- NOTE | 2020-08-11 16:04 | Ultrasound Report ---
PROCEDURE: Duplex Ext Veins Right INDICATIONS: R LEG EDEMA TECHNIQUE: Real-time imaging, as well as color and pulse Doppler interrogation, were performed of the lower extr emity deep veins from the inguinal ligament to the popliteal fossa. COMPARISON: None. FINDINGS: The deep veins are normally compressible, and free of intraluminal thrombus. Color and pu lse Doppler demonstrate normal phasic intraluminal flow. There is normal augmentation response to di stal compression maneuver. Venous reflux is incidentally noted during the exam. IMPRESSION: No sonographic evidence of deep venous thrombosis in the right lower extremity. Reviewed by: Navdeep Medley MD on 08/11/2020 4:02 PM PST Approved by: Navdeep Medley MD on 08/11/2020 4:02 PM PST Station ID: [id number]
== END 2020-08-11 14:24 | disposition home or self-care (01) ==
LOC: DI 14:23
PROVIDERS: ATTEND Internal Medicine
DX: R60.0 Localized edema (principal)

== ENCOUNTER 2020-10-05 07:08 | Day surgery (SDC) | payer MEDICARE ==
[2020-10-05] MEDS ORDERED: LACTATED RINGERS 1,000 ML IV ONE ×2 (07:31→09:10)
[2020-10-05] MEDS ORDERED: fentaNYL 100 MCG/2 ML VIAL ONE ×2 (08:23→08:38)
[2020-10-05] MEDS ORDERED: MIDAZOLAM 2 MG/2 ML VIAL ONE ×2 (08:23→09:01)
[2020-10-05 09:37] VITALS: BP 138/59
[2020-10-05] MEDS ORDERED: ONDANSETRON ODT 4 MG TABLET ONE (10:09)
== END 2020-10-05 07:09 | disposition home or self-care (01) ==
LOC: SDS 07:08
PROVIDERS: ATTEND Surgery
PROC: 0DBH8ZX Excision of Cecum, Via Natural or Artificial Opening Endoscopic, Diagnostic (ICD-10-PCS; 2020-10-05)
PROC: 0DBK8ZZ Excision of Ascending Colon, Via Natural or Artificial Opening Endoscopic (ICD-10-PCS; principal; 2020-10-05 08:30)
DX: K51.90 Ulcerative colitis, unspecified, without complications (principal); D12.2 Benign neoplasm of ascending colon; K21.9 Gastro-esophageal reflux disease without esophagitis; I10 Essential (primary) hypertension; E78.5 Hyperlipidemia, unspecified; Z79.82 Long term (current) use of aspirin; Z79.899 Other long term (current) drug therapy; Z90.49 Acquired absence of other specified parts of digestive tract; Z87.891 Personal history of nicotine dependence
CPT/HCPCS: 45380; 45385; J7120; Q0162

== ENCOUNTER 2020-11-15 14:06 | Outpatient (CLI) | payer MEDICARE ==
[2020-11-15] MEDS ORDERED: IOPAMIDOL-300 50 ML VIAL ONE (14:23)
[2020-11-15] MEDS ORDERED: IOVERSOL 320 100 ML VIAL IVP ONE (14:23)
[2020-11-15 15:52] LABS: CREATININE 0.9 mg/dL (0.4-1.0)
--- NOTE | 2020-11-15 18:19 | CT Report ---
PROCEDURE: Abdomen/Pelvis without contrast. INDICATIONS: PERSISTENT DIARRHEA, COLITIS CONTRAST: IV CONTRAST: Optiray 320 ml: 100 PO CONTRAST: Isovue 300 ml50 TECHNIQUE: After the administration of oral contrast, 5 mm thick sections acquired from the diaphragms to the sy mphysis. 5 mm thick coronal and sagittal reformats were acquired. For radiation dose reduction, the following was used: automated exposure control, adjustment of mA and/or kV according to patient siz e. The patient's IV infiltrated with IV contrast extravasation. Second bolus of contrast was not adminis tered. COMPARISON: CT abdomen and pelvis 03/01/2014. FINDINGS: Image quality: Excellent. Note: The evaluation of the solid organs is limited without IV contrast. ABDOMEN: Lung bases: Lung bases are clear. Heart size is normal. Solid organs: Liver is normal in size. Gallbladder is unremarkable. Biliary system is non dilated. Pancreas enhances normally. Spleen is at the upper limits of normal in size measuring 13 cm. No adr enal nodules. Kidneys demonstrate normal size and enhancement, without hydronephrosis. Suspect tiny hypodense left renal cysts. Peritoneum and bowel: Bowel anastomosis in the right pelvis, similar to 2013. No bowel obstruction. T he appendix is not seen. No free fluid or air. Nodes and vessels: No retroperitoneal or mesenteric adenopathy by size criteria. Aorta and inferior vena cava are normal in size. Moderate plaque. Miscellaneous: Tiny fat-containing periumbilical hernia. PELVIS: Genitourinary: Bladder is unremarkable. Uterus is absent. Miscellaneous: Question of small fat-containing left inguinal hernia. Small left groin lymph nodes. R ight groin surgical clips. Small intramuscular lipoma adjacent to the right inferior pubic ramus, unc hanged. Bones: No suspicious bony lesions. L4-L5 DDD. No vertebral body compression fractures. IMPRESSION: Evaluation of the solid parenchymal organs is limited without IV contrast. IV infiltrated during inje ction. No acute inflammatory process is identified. No free fluid. No small bowel obstruction. Rectosigmoid anastomosis is stable in appearance. Reviewed by: Saeid Richards MD on 11/15/2020 6:18 PM PDT Approved by: Saeid Richards MD on 11/15/2020 6:18 PM PDT Station ID: [id number]
== END 2020-11-15 14:07 | disposition home or self-care (01) ==
LOC: DI 14:06
PROVIDERS: ATTEND Internal Medicine
DX: K52.89 Other specified noninfective gastroenteritis and colitis (principal); R19.7 Diarrhea, unspecified; Z79.899 Other long term (current) drug therapy
CPT/HCPCS: 36415; 74177; 82565; Q9967

== ENCOUNTER 2021-03-09 16:56 | Outpatient (CLI) | payer MEDICARE ==
--- NOTE | 2021-03-14 06:09 | CT Report ---
PROCEDURE: HEAD WO INDICATIONS: SPEECH CHANGES, EPISODES OF SPEAKING GIBBERISH TECHNIQUE: Noncontrast 4.5 mm thick angled axial sections acquired from the foramen magnum to the vertex. For r adiation dose reduction, the following was used: automated exposure control, adjustment of mA and/or kV according to patient size. COMPARISON: None. FINDINGS: Image quality: Excellent. CSF spaces: Basal cisterns are patent. No extra-axial fluid collections. Ventricles are normal in size and shape. Brain: No midline shift. No intracranial masses or hemorrhage. Pool-white matter interface is norm al. Age-related senescent changes with diffuse cortical volume loss and associated ex vacuo dilatatio n of the bilateral ventricles. Stable appearance of changes from chronic small vessel ischemic diseas e. Atherosclerotic calcifications of the bilateral intracranial internal carotid arteries. Skull and face: Calvarium and visualized facial bones are intact, without suspicious lesions. Sinuses: Minimal scattered ethmoid sinus mucosal thickening. Remainder of the visualized paranasal si nuses and mastoids are clear. IMPRESSION: 1. CT head without acute intracranial abnormalities or acute intracranial hemorrhage. 2. No acute calvarial fractures. 3. Stable age related senescent changes and sequela of chronic small vessel ischemic disease. 4. Minimal scattered ethmoid sinus disease. Reviewed by: Dexter Hobson MD on 03/09/2021 5:27 PM PDT Approved by: Dexter Hobson MD on 03/09/2021 5:27 PM PDT Station ID: [id number]
== END 2021-03-09 16:57 | disposition home or self-care (01) ==
LOC: DI 16:56
PROVIDERS: ATTEND Internal Medicine
DX: R47.89 Other speech disturbances (principal); J32.2 Chronic ethmoidal sinusitis; I67.2 Cerebral atherosclerosis

== ENCOUNTER 2021-03-30 08:00 | Outpatient (CLI) | payer MEDICARE ==
[2021-03-30 12:31] LABS: CREATININE 0.9 mg/dL (0.4-1.0)
== END 2021-03-30 23:59 | disposition home or self-care (01) ==
LOC: LAB 08:00
PROVIDERS: ATTEND Internal Medicine
DX: Z79.899 Other long term (current) drug therapy (principal)
CPT/HCPCS: 36415; 82565

== ENCOUNTER 2021-03-30 11:50 | Outpatient (CLI) | payer MEDICARE ==
[2021-03-30] MEDS ORDERED: GADOBUTROL 7.5 MMOL/7.5 ML VIAL ONE (13:05)
--- NOTE | 2021-03-30 16:25 | Ultrasound Report ---
PROCEDURE: Carotid Doppler Complete INDICATIONS: TIA TECHNIQUE: Color and pulse Doppler interrogation was performed of both carotid systems, with image documentation and velocity measurements. COMPARISON: None. FINDINGS: Right side: Brachial blood pressure: 177/70 mm Hg. Common carotid artery peak systolic velocity: 45 cm/sec. Internal carotid artery peak systolic velocity: 61 cm/sec. Internal carotid artery end diastolic velocity: 15 cm/sec. External carotid artery peak systolic velocity: 58 cm/sec. ICA/CCA peak systolic ratio: 1.4 . Pool scale imaging description: Mild to moderate plaque at the bifurcation Percent internal carotid artery stenosis: Less than 50% . Vertebral artery: Flow direction is antegrade. Left side: Brachial blood pressure: 166/83 mm Hg. Common carotid artery peak systolic velocity: 48 cm/sec. Internal carotid artery peak systolic velocity: 94 cm/sec. Internal carotid artery end diastolic velocity: 25 cm/sec. External carotid artery peak systolic velocity: 70 cm/sec. ICA/CCA peak systolic ratio: 2.0 . Pool scale imaging description: Mild plaque at the bifurcation Percent internal carotid artery stenosis: 50% . Vertebral artery: Flow direction is antegrade. IMPRESSION: Less than 50% stenosis of the internal carotid arteries bilaterally. The estimate of stenosis included in the report of the imaging study was calculated using the NASCET method Reviewed by: Allyn Rider MD on 03/30/2021 4:24 PM PDT Approved by: Allyn Rider MD on 03/30/2021 4:24 PM PDT Station ID: [id number]
[2021-03-30] MEDS ORDERED: GADOBUTROL 7.5 MMOL/7.5 ML VIAL IVP ONE (16:27)
--- NOTE | 2021-03-30 16:49 | MRI Report ---
PROCEDURE: Brain W/WO INDICATIONS: TIA CONTRAST: IV CONTRAST: Gadavist ml: 7.5 TECHNIQUE: Noncontrast axial T1 spin echo, axial T2 fast spin echo, sagittal and axial FLAIR, coronal T2 fast sp in echo, axial gradient echo, axial diffusion and ADC through the brain. After the administration of contrast, axial and coronal T1 spin echo with fat saturation through the brain. COMPARISON: Correlation is made with head CT, 03/08/2021 FINDINGS: Image quality: Motion artifact is noted. CSF spaces: Basal cisterns are patent. No extra-axial fluid collections. Ventricles are normal in size and shape. Brain: No midline shift. No intracranial bleeds or masses. No abnormal intracranial enhancement. There is cerebral volume loss for age. There is periventricular white matter chronic small vessel is chemic change. The brainstem appears normal. Diffusion-weighted images demonstrate no acute ischemi c insults. No chronic ischemic insults. Normal intravascular flow voids are present. Skull and face: Calvarial marrow is normal in signal. Orbits appear normal. Incidental note is ma de of bilateral lens replacements. Sinuses: Minimal mucosal thickening can be seen within the inferior maxillary sinuses. Sinuses and m astoids otherwise appear clear. A right-sided christina bullosa can be seen. IMPRESSION: No findings of acute or subacute infarction are seen. No masses or abnormal enhancement can be seen. Age-appropriate brain parenchymal volume loss and chronic small vessel ischemic change can be seen. Reviewed by: Kenny Willis MD on 03/30/2021 3:47 PM HUONG Approved by: Kenny Willis MD on 03/30/2021 3:47 PM [id number] Station ID: [id number]
== END 2021-03-30 11:51 | disposition home or self-care (01) ==
LOC: DI 11:50
PROVIDERS: ATTEND Internal Medicine
DX: G45.9 Transient cerebral ischemic attack, unspecified (principal); Z79.899 Other long term (current) drug therapy
CPT/HCPCS: 70553; 93880; A9585

== ENCOUNTER 2021-05-23 14:43 | Outpatient (CLI) | payer MEDICARE ==
--- NOTE | 2021-05-23 16:30 | MRI Report ---
PROCEDURE: Lumbar Spine W/O INDICATIONS: SEVERE BACK PAIN TECHNIQUE: Noncontrast sagittal T1 spin echo and T2 fast echo, sagittal STIR, axial T1 and T2 fast spin echo thr ough the lumbar spine. In cases with scoliosis, additional coronal T2 fast spin echo may be performe d. COMPARISON: None. FINDINGS: Normal lumbar vertebral body height and alignment. Discogenic marrow edema at the opposing L4-L5 endp lates with associated Schmorl node and endplate irregularity. No significant marrow signal abnormalit y otherwise. Normal position and appearance of the conus. Regional soft tissues are unremarkable in t he absence of IV contrast. T12-L1: No spinal canal or neural foraminal stenosis. L1-L2: No spinal canal or neural foraminal stenosis. L2-L3: No spinal canal or neural foraminal stenosis. L3-L4: Severe spinal canal stenosis due to diffuse disc bulge with a superimposed extrusion spannin g the full lateral width of the spinal canal. Buckling of the ligamentum flavum and facet hypertrophy further contribute to spinal canal stenosis at this level. Foraminal components of the disc bulge an d facet hypertrophy combine to produce mild bilateral neural foraminal stenosis. L4-L5: Diffuse disc bulge and protrusion displaces the descending bilateral L5 nerve roots within t he subarticular zones. Both the left and right L5 nerve roots are interposed between disc and facet m aterial in the subarticular zones, with an appearance suggestive of possible impingement (axial T2 se katie image 12). Foraminal components of the disc bulge and facet hypertrophy combine to produce mild bilateral neural foraminal stenosis. L5-S1: No spinal canal or neural foraminal stenosis. IMPRESSION: Disc bulge and extrusion at L3-L4 producing severe spinal canal stenosis with probable nerve root com pression/impingement. Significant displacement of the descending L5 nerve roots at the L4-L5 level due to disc bulge and pr otrusion. Reviewed by: Crescencio Solomon MD on 05/23/2021 4:28 PM PST Approved by: Crescencio Solomon MD on 05/23/2021 4:28 PM PST Station ID: [id number]
== END 2021-05-23 14:44 | disposition home or self-care (01) ==
LOC: DI 14:43
PROVIDERS: ATTEND Internal Medicine
DX: M51.26 Other intervertebral disc displacement, lumbar region (principal); M48.061 Spinal stenosis, lumbar region without neurogenic claudication; M47.816 Spondylosis without myelopathy or radiculopathy, lumbar region

== ENCOUNTER 2021-08-09 12:40 | Outpatient (CLI) | payer MEDICARE ==
--- NOTE | 2021-08-10 06:43 | Mammography Report ---
BILATERAL DIGITAL SCREENING MAMMOGRAM 3D/2D: 08/09/2021 CLINICAL: Family history of breast cancer. Routine screening. Comparison is made to exams dated: 06/02/2020 mammogram, 02/04/2019 mammogram, 11/22/2017 mammogram, 05/2017 mammogram, 01/19/2015 mammogram, and 08/06/2014 mammogram - [facility]. The t issue of both breasts is predominantly fatty. There are benign diffuse calcifications in both breasts. No significant masses, calcifications, or other findings are seen in either breast. There has been no significant interval change. IMPRESSION: BENIGN There is no mammographic evidence of malignancy. A 1 year screening mammogram is recommended. This exam was interpreted at Station ID: [id number]. NOTE: For mammograms, a report in lay terms will be sent to the patient. Approximately 15% of breast malignancies will not be visualized mammographically. In the management of a palpable breast mass, a negative mammogram must not discourage biopsy of a clinically suspicious lesion. Electronically Signed By: Crescencio Solomon M.D., jr/rosa:08/09/2021 13:58:13 ACR BI-RADS Category 2: Benign Finding(s) 3342F PARENCHYMAL PATTERN: (F) - The breast(s) demonstrate(s) diffuse fatty replacement. BI-RADS CATEGORY: (2) - 2 RECOMMENDATION: (ANNUAL) - Recommend routine annual screening mammography. [id number] 1 year screening LATERALITY: (B)
== END 2021-08-09 12:41 | disposition home or self-care (01) ==
LOC: DI.N 12:40
PROVIDERS: ATTEND Internal Medicine
DX: Z12.31 Encounter for screening mammogram for malignant neoplasm of breast (principal); Z80.3 Family history of malignant neoplasm of breast

== ENCOUNTER 2021-10-27 08:53 | Outpatient (CLI) | payer MEDICARE ==
[2021-10-27 09:15] LABS: BASOPHILS # (AUTO) 0.1 10^3/uL (0.0-0.1); BASOPHILS % (AUTO) 0.4 %; EOSINOPHILS # (AUTO) 0.3 10^3/uL (0.0-0.7); EOSINOPHILS % (AUTO) 1.7 %; HCT - HEMATOCRIT 41.2 % (37.0-47.0); LYMPHOCYTES # (AUTO) 12.3 10^3/uL (1.5-3.5); LYMPHOCYTES % (AUTO) 64.3 %; MEAN CORPUSCULAR HEMOGLOBIN 28.2 pg (27.0-31.0); MEAN CORPUSCULAR HGB CONC 31.6 g/dL (32.0-36.0); MEAN CORPUSCULAR VOLUME 89.4 fL (81.0-99.0); MEAN PLATELET VOLUME 8.6 fL (7.9-10.8); MONOCYTES # (AUTO) 0.8 10^3/uL (0.0-1.0); MONOCYTES % (AUTO) 4.1 %; NEUTROPHILS # (AUTO) 5.6 10^3/uL (1.5-6.6); NEUTROPHILS % (AUTO) 29.2 %; PLT - PLATELET COUNT 196 10^3/uL (130-450); RED BLOOD COUNT 4.61 10^6/uL (4.20-5.40); RED CELL DISTRIBUTION WIDTH 15.3 % (12.0-15.0); WHITE BLOOD COUNT 19.1 x10^3/uL (4.8-10.8)
[2021-10-27 09:22] LABS: CALCIUM 9.1 mg/dL (8.5-10.3); CREATININE 0.8 mg/dL (0.4-1.0); POTASSIUM 4.3 mmol/L (3.5-5.0)
[2021-10-27 09:45] LABS: DIFFERENTIAL COMMENT MANUAL=AUTO DIFF; PLATELET ESTIMATE, MANUAL NORMAL (130-450,000) (NORMAL); PLATELET MORPHOLOGY NORMAL APPEARANCE (NORMAL); RBC MORPHOLOGY (MULTIPLE) NORMAL APPEARANCE (NORMAL)
== END 2021-10-27 08:54 | disposition home or self-care (01) ==
LOC: LAB 08:53
PROVIDERS: ATTEND Orthopaedic Surgery Orthopaedic Surgery of the Spine
DX: Z01.812 Encounter for preprocedural laboratory examination (principal)
CPT/HCPCS: 36415; 80048; 85025

== ENCOUNTER 2022-03-26 08:00 | Outpatient (CLI) | payer MEDICARE ==
[2022-03-26 15:31] LABS: BASOPHILS # (AUTO) 0.1 10^3/uL (0.0-0.1); BASOPHILS % (AUTO) 0.4 %; EOSINOPHILS # (AUTO) 0.5 10^3/uL (0.0-0.7); EOSINOPHILS % (AUTO) 2.9 %; HCT - HEMATOCRIT 42.7 % (37.0-47.0); HGB - HEMOGLOBIN 12.9 g/dL (12.0-16.0); LYMPHOCYTES # (AUTO) 11.5 10^3/uL (1.5-3.5); LYMPHOCYTES % (AUTO) 69.1 %; MEAN CORPUSCULAR HEMOGLOBIN 26.3 pg (27.0-31.0); MEAN CORPUSCULAR HGB CONC 30.2 g/dL (32.0-36.0); MEAN CORPUSCULAR VOLUME 87.1 fL (81.0-99.0); MEAN PLATELET VOLUME 9.6 fL (7.9-10.8); MONOCYTES # (AUTO) 0.5 10^3/uL (0.0-1.0); MONOCYTES % (AUTO) 3.1 %; NEUTROPHILS # (AUTO) 4.1 10^3/uL (1.5-6.6); NEUTROPHILS % (AUTO) 24.3 %; PLT - PLATELET COUNT 227 10^3/uL (130-450); RED CELL DISTRIBUTION WIDTH 15.1 % (12.0-15.0); WHITE BLOOD COUNT 16.7 x10^3/uL (4.8-10.8)
[2022-03-26 15:37] LABS: SLIDE REVIEW? Indicated
[2022-03-26 16:07] LABS: ALBUMIN/GLOBULIN RATIO 1.3 (1.0-2.2); ALKALINE PHOSPHATASE 71 IU/L (42-121); ALT ALANINE AMINOTRANSFERASE 16 IU/L (10-60); AST ASPARTATE AMINOTRANSFERASE 22 IU/L (10-42); BILIRUBIN,TOTAL 0.8 mg/dL (0.2-1.0); BUN - BLOOD UREA NITROGEN 17 mg/dL (6-20); CARBON DIOXIDE - CO2 27 mmol/L (21-32); CHLORIDE 100 mmol/L (101-111); CHOL/HDL RATIO 4.2 (<4.4); CHOLESTEROL 199 mg/dL; GFR - MDRD 53 (>89); GLUCOSE 89 mg/dL (70-100); HDL CHOLESTEROL 47 mg/dL; LDL CHOLESTEROL,CALCULATED 135 mg/dL; LDL/HDL RATIO 2.9 (<4.4); POTASSIUM 4.3 mmol/L (3.5-5.0); SODIUM 134 mmol/L (135-145); TOTAL PROTEIN 7.2 g/dL (6.7-8.2); TRIGLYCERIDES 87 mg/dL; VLDL CHOLESTEROL 17 mg/dL
[2022-03-26 16:35] LABS: RBC MORPHOLOGY (MULTIPLE) NORMAL APPEARANCE (NORMAL)
[2022-03-26 16:43] LABS: DIFFERENTIAL COMMENT MANUAL=AUTO DIFF; PLATELET ESTIMATE, MANUAL NORMAL (130-450,000) (NORMAL); PLATELET MORPHOLOGY NORMAL APPEARANCE (NORMAL)
== END 2022-03-26 23:59 | disposition home or self-care (01) ==
LOC: LAB.R 08:00
PROVIDERS: ATTEND Internal Medicine
DX: Z00.00 Encounter for general adult medical examination without abnormal findings (principal); C44.91 Basal cell carcinoma of skin, unspecified; C91.10 Chronic lymphocytic leukemia of B-cell type not having achieved remission; R05.3 Chronic cough; R10.9 Unspecified abdominal pain; K21.9 Gastro-esophageal reflux disease without esophagitis; Z86.010 Personal history of colon polyps; E78.5 Hyperlipidemia, unspecified; I10 Essential (primary) hypertension; R73.01 Impaired fasting glucose; M19.90 Unspecified osteoarthritis, unspecified site; H81.10 Benign paroxysmal vertigo, unspecified ear; I26.99 Other pulmonary embolism without acute cor pulmonale; J30.2 Other seasonal allergic rhinitis; C80.1 Malignant (primary) neoplasm, unspecified; Z79.899 Other long term (current) drug therapy
CPT/HCPCS: 80053; 80061; 83721; 84443; 85025

== ENCOUNTER 2022-06-06 15:51 | Outpatient (CLI) | payer MEDICARE ==
[2022-06-06 16:09] LABS: CALCIUM 9.1 mg/dL (8.5-10.3); POTASSIUM 4.3 mmol/L (3.5-5.0)
[2022-06-07 15:46] LABS: ALBUMIN 3.6 g/dL (3.2-5.5); BILIRUBIN,TOTAL 3.1 mg/dL (0.2-1.0); TOTAL PROTEIN 7.2 g/dL (6.7-8.2)
== END 2022-06-06 15:52 | disposition home or self-care (01) ==
LOC: LAB.R 15:51
PROVIDERS: ATTEND Internal Medicine
DX: Z79.899 Other long term (current) drug therapy (principal); K59.00 Constipation, unspecified; L29.9 Pruritus, unspecified
CPT/HCPCS: 80048; 80053

== ENCOUNTER 2022-06-15 13:47 | Outpatient (CLI) | payer MEDICARE ==
--- NOTE | 2022-06-15 15:39 | Ultrasound Report ---
PROCEDURE: Abdomen Limited INDICATIONS: ELEVATED LIVER TECHNIQUE: Real-time focused scanning was performed of the abdomen, with image documentation. COMPARISON: None FINDINGS: The liver has a normal size and appearance. No masses. No intrahepatic biliary ductal dilatation. Jen n portal vein has hepatopedal flow. The liver has low echogenicity with prominence of the periportal fat which is nonspecific. The gallbladder is normal with no stones, wall thickening, or pericholecystic fluid. Biliary tree: The common bile duct measures 2.5 mm. The common hepatic duct measures 2.5 mm. Pancreas is not well-seen due to overlying bowel gas. The right kidney has a normal size and appearance with no calculus or hydronephrosis. The aorta is not visualized. The IVC is patent. No free fluid. IMPRESSION: 1. No acute ultrasound abnormality of the abdomen. 2. Decreased echogenicity of the liver is nonspecific, however this can be seen with edema of the viviana er such as hepatitis. Reviewed by: Bj Nixon on 06/15/2022 3:38 PM [facility] Approved by: Bj Nixon on 06/15/2022 3:38 PM [facility] Station ID: [id number]
== END 2022-06-15 13:48 | disposition home or self-care (01) ==
LOC: DI 13:47
PROVIDERS: ATTEND Internal Medicine
DX: R74.8 Abnormal levels of other serum enzymes (principal)

== ENCOUNTER 2022-06-19 14:28 | Outpatient (CLI) | payer MEDICARE ==
[2022-06-19 15:45] LABS: % IRON SATURATION 19 % (20-50); IRON 71 ug/dL (28-170); TOTAL IRON BINDING CAPACITY 377 ug/dL (250-450); TRANSFERRIN 269 mg/dL (192-382)
[2022-06-20 05:10] LABS: HBsAG SCREEN Negative (Negative); HEPATITIS A TOTAL AB Positive (Negative); HEPATITIS B SURFACE AB QUANT <3.1 mIU/mL (Immunity>9.9)
[2022-06-20 07:10] LABS: AFP SERUM TUMOR MARKER 2.5 ng/mL (0.0-8.7)
[2022-06-20 15:08] LABS: A/G RATIO 1.2 (0.7-1.7); ALBUMIN 3.7 g/dL (2.9-4.4); ALPHA-1-GLOBULIN 0.2 g/dL (0.0-0.4); ALPHA-2-GLOBULIN 0.7 g/dL (0.4-1.0); ANTI-DNA (DS) AB QN <1 IU/mL (0-9); BETA GLOBULIN 1.3 g/dL (0.7-1.3); CENTROMERE B ANTIBODIES <0.2 AI (0.0-0.9); CHROMATIN ANTIBODIES <0.2 AI (0.0-0.9); GAMMA GLOBULIN 0.9 g/dL (0.4-1.8); GLOBULIN, TOTAL 3.2 g/dL (2.2-3.9); JO-1 AB <0.2 AI (0.0-0.9); PROTEIN TOTAL 6.9 g/dL (6.0-8.5); RIBOSOMAL P ANTIBODIES <0.2 AI (0.0-0.9); RNP ANTIBODIES 0.2 AI (0.0-0.9); SCLERODERMA-70 ANTIBODIES <0.2 AI (0.0-0.9); SJOGREN'S ANTI-SS-A >8.0 AI (0.0-0.9); SJOGREN'S ANTI-SS-B <0.2 AI (0.0-0.9); SMITH ANTIBODIES <0.2 AI (0.0-0.9); SMITH/RNP ANTIBODIES <0.2 AI (0.0-0.9)
[2022-06-21 15:09] LABS: HCV RNA QUANTITATION HCV Not Detected IU/mL (.)
[2022-06-22 02:07] LABS: HBV IU/ML HBV DNA not detected IU/mL (.)
[2022-06-22 11:09] LABS: ACTIN (SMOOTH MUSCLE) ANTIBODY 25 Units (0-19); LIVER-KIDNEY MICROSOMAL AB 0.8 Units (0.0-20.0)
== END 2022-06-19 14:29 | disposition home or self-care (01) ==
LOC: LAB 14:28
PROVIDERS: ATTEND Internal Medicine
DX: L29.8 Other pruritus (principal); K75.9 Inflammatory liver disease, unspecified
CPT/HCPCS: 36415; 81599; 82105; 82390; 82728; 83516; 83540; 84155; 84165; 84466; 86015; 86225; 86235; 86317; 86376; 86381; 86704; 86707; 86708; 86709; 87340; 87517; 87522

== ENCOUNTER 2022-12-26 08:48 | Day surgery (SDC) | payer MEDICARE ==
[2022-12-26] MEDS ORDERED: LACTATED RINGERS 1,000 ML IV ONE ×2 (09:28→11:30)
[2022-12-26] MEDS ORDERED: PROPOFOL 500 MG/50 ML 500 MG/50 ML VIAL ONE (09:32)
--- NOTE | 2022-12-26 09:55 | ANESTHESIA ---
Pre-Anesthesia VS, & Labs - Diagnosis screening/hx polyps, anemia - Procedure EGD + colonoscopy Vital Signs: Temp Pulse Resp BP Pulse Ox O2 Flow Rate 36.2 C L 71 16 156/74 H 96 0 12/26/22 09:29 12/26/22 09:29 12/26/22 09:29 12/26/22 09:29 12/26/22 09:29 12/26/22 09:29 Height: 5 ft 2 in Weight (kg): 71.3 kg Body Mass Index: 28.7 BMI Classification: Overweight - NPO >8 hours - Is Patient ?: No - Lab Results Lab results reviewed: Yes Home Medications and Allergies Home Medications: Ambulatory Orders Cholecalciferol [Vitamin D3] 5,000 unit PO DAILY 12/25/22 Ferrous Bis-Glycinate Chelate [Iron Glycinate] 29 mg PO DAILY 12/25/22 Magnesium Citrate 100 mg PO DAILY 12/25/22 Omeprazole [PriLOSEC] 20 mg PO DAILY 09/14/13 Aspirin [Children's Aspirin] 81 mg PO DAILY 09/15/13 Multivitamin [Multivitamins] 1 tab PO DAILY 03/11/19 Cyanocobalamin (Vitamin B-12) [Vitamin B-12] 6,000 mcg PO DAILY 10/05/20 Vitamin E (Dl,Tocopheryl Acet) [Vitamin E] 450 mg PO DAILY 10/05/20 Spironolactone [Aldactone] 25 mg PO UD 10/04/22 Cholecalciferol [Vitamin D3] 5,000 unit PO DAILY 12/25/22 Ferrous Bis-Glycinate Chelate [Iron Glycinate] 29 mg PO DAILY 12/25/22 Magnesium Citrate 100 mg PO DAILY 12/25/22 Allergies/Adverse Reactions: Allergies Allergy/AdvReac Type Severity Reaction Status Date / Time codeine AdvReac Mild Nausea Verified 12/26/22 08:57 hydrocodone bitartrate * AdvReac Mild Nausea Verified 12/26/22 08:57 [From Vicodin] oxycodone HCl * AdvReac Mild Nausea Verified 12/26/22 08:57 [From Percocet] amlodipine AdvReac Unknown Verified 12/26/22 09:40 doxazosin AdvReac Unknown Verified 12/26/22 09:40 homatropine [From Hycodan] AdvReac Unknown Verified 12/26/22 09:40 hydrocodone [From Hycodan] AdvReac Unknown Verified 12/26/22 09:40 lisinopril AdvReac Unknown Verified 12/26/22 09:40 morphine AdvReac Nausea Verified 12/26/22 09:35 Penicillins AdvReac Nausea Verified 12/26/22 09:35 scopolamine AdvReac Unknown Verified 12/26/22 09:40 tramadol AdvReac Unknown Verified 12/26/22 09:40 beta basia AdvReac Unknown Uncoded 12/26/22 09:40 Anes History & Medical History - Anesthetic History Anesthesia Complications: reports: No previous complications Family history of Anesthesia Complications: Denies Family history of Malignant Hyperthermia: Denies - Medical History Cardiovascular: reports: Hypertension, Deep vein thrombosis, Pulmonary embolism Pulmonary: reports: None Gastrointestinal: reports: GERD Urinary: reports: None Neuro: reports: None Musculoskeletal: reports: Chronic back pain Endocrine/Autoimmune: reports: None Blood Disorders: reports: None Skin: reports: None Smoking Status: Never smoker - Surgical History General: reports: Colonoscopy, Other Eyes Ears Nose Throat (EENT): reports: Cataracts, Detached retina repair Gynecologic: reports: Hysterectomy Exam General: Alert, Oriented x3, Cooperative Dental: WNL Mouth Openin Fingerbreadth Neck Mobility: Normal Mallampati classification: II Thyromental Distance: 4-6 cm Respiratory: Lungs clear Cardiovascular: Regular rate Plan Anesthesia Type: General, MAC Consent for Procedure(s) Verified and Reviewed: Yes Code Status: Attempt Resuscitation ASA classification: 2-Mild systemic disease Is this case an emergency?: No
[2022-12-26 12:33] VITALS: BP 148/74
== END 2022-12-26 08:49 | disposition home or self-care (01) ==
LOC: SDS 08:48
PROVIDERS: ATTEND Surgery
PROC: 0DBN8ZZ Excision of Sigmoid Colon, Via Natural or Artificial Opening Endoscopic (ICD-10-PCS; 2022-12-26)
PROC: 0DB78ZX Excision of Stomach, Pylorus, Via Natural or Artificial Opening Endoscopic, Diagnostic (ICD-10-PCS; principal; 2022-12-26 10:00)
PROC: 0DBK8ZZ Excision of Ascending Colon, Via Natural or Artificial Opening Endoscopic (ICD-10-PCS; 2022-12-26 10:00)
DX: D50.0 Iron deficiency anemia secondary to blood loss (chronic) (principal); D12.2 Benign neoplasm of ascending colon; K63.5 Polyp of colon; K29.50 Unspecified chronic gastritis without bleeding; C91.10 Chronic lymphocytic leukemia of B-cell type not having achieved remission; K64.0 First degree hemorrhoids; K21.9 Gastro-esophageal reflux disease without esophagitis
CPT/HCPCS: 43239; 45385; J7120

== ENCOUNTER 2023-05-04 14:16 | Emergency (ER) | payer MEDICARE ==
--- NOTE | 2023-05-04 15:42 | ED Physician Documentation ---
PD HPI LOWER EXT INJURY - Stated complaint Stated Complaint: RT LEG PX/SWELLING - Chief complaint Chief Complaint: Ext Problem - History obtained from History obtained from: Patient - History of Present Illness PD HPI LOW EXT INJURY LOCATION: Right, Lower leg, Calf Type of injury: No: Fall, Blunt / blow Where injury occurred: Home (not aware of any injury to the area. Had onset of tenderness and swelling medial lower leg this morning, that has increased through the day. No leg edema in general. Prior history of DVT years ago so is concerned about that.) Timing - onset: Today Timing - duration: Hours (just noted over the past 8 hours or so. Did not notice it last evening.) Review of Systems Cardiac: denies: Chest pain / pressure Respiratory: denies: Dyspnea, Hemoptysis Neurologic: denies: Focal weakness, Numbness PD PAST MEDICAL HISTORY - Past Medical History Past Medical History: Yes Cardiovascular: Hypertension, Deep vein thrombosis, Pulmonary embolism Respiratory: None Neuro: None Endocrine/Autoimmune: None GI: GERD : None HEENT: Chronic vision loss, Glaucoma, Dental implants Psych: None Musculoskeletal: Chronic back pain Derm: None - Past Surgical History 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, Other /[employer]: Hysterectomy HEENT: Cataracts, Detached retina repair - Present Medications Home Medications: Ambulatory Orders Medication Instructions Recorded Confirmed Omeprazole [PriLOSEC] 20 mg PO DAILY 09/14/13 05/04/23 Multivitamin [Multivitamins] 1 tab PO DAILY 03/11/19 05/04/23 Cyanocobalamin (Vitamin B-12) 6,000 mcg PO DAILY 10/05/20 05/04/23 [Vitamin B-12] Vitamin E (Dl,Tocopheryl Acet) 450 mg PO DAILY 10/05/20 05/04/23 [Vitamin E] Spironolactone [Aldactone] 25 mg PO DAILY 10/04/22 05/04/23 Cholecalciferol [Vitamin D3] 5,000 unit PO DAILY 12/25/22 05/04/23 Magnesium Citrate 100 mg PO DAILY 12/25/22 05/04/23 - Allergies Allergies/Adverse Reactions: Allergies Allergy/AdvReac Type Severity Reaction Status Date / Time codeine AdvReac Mild Nausea Verified 12/26/22 08:57 hydrocodone bitartrate * AdvReac Mild Nausea Verified 12/26/22 08:57 [From Vicodin] oxycodone HCl * AdvReac Mild Nausea Verified 12/26/22 08:57 [From Percocet] amlodipine AdvReac Unknown Verified 12/26/22 09:40 doxazosin AdvReac Unknown Verified 12/26/22 09:40 homatropine [From Hycodan] AdvReac Unknown Verified 12/26/22 09:40 hydrocodone [From Hycodan] AdvReac Unknown Verified 12/26/22 09:40 lisinopril AdvReac Unknown Verified 12/26/22 09:40 morphine AdvReac Nausea Verified 12/26/22 09:35 Penicillins AdvReac Nausea Verified 12/26/22 09:35 scopolamine AdvReac Unknown Verified 12/26/22 09:40 tramadol AdvReac Unknown Verified 12/26/22 09:40 beta basia AdvReac Unknown Uncoded 12/26/22 09:40 - Social History Does the pt smoke?: No Smoking Status: Never smoker PD ED PE NORMAL - Vitals Vital signs reviewed: Yes - General General: Alert and oriented X 3, Well developed/nourished - Derm Derm: Normal color, Warm and dry - Extremities Extremities: Other (medial aspect of lower leg with swelling above skin surface level, in pattern c/w veins. Minimal redness, but is moderately tender. No skin lesions. Posterior calf not tender itself. c/w phlebitis, and will get US toe ana maria for deeper system.) - Neuro Neuro: Alert and oriented X 3, No motor deficit, No sensory deficit Results - Vitals Vitals: Oxygen O2 Source Room air - Rads (name of study) duplex lower extremity - Relevant Findings:: Other (report from [employer] tech - neg DVT. Does have superficial phlebitis. ) PD Medical Decision Making - ED course Complexity details: reviewed results (neg US for DVT. ), considered differential (clnically c/w superficial phlebitis. Can get US to assess for deeper system. ), d/w patient Departure - Departure Disposition: 01 Home, Self Care Clinical Impression: Superficial phlebitis of right leg Condition: Stable Record reviewed to determine appropriate education?: Yes Instructions: ED Phlebitis Superficial Follow-Up: Belen Ryan MD [Primary Care Provider] - Comments: Your ultrasound did not show any deep clots (no DVT). There is the superficial phlebitis which is clotting of the surface veins. This is not at risk of going up to your lungs or such. It does continue locally with the inflammation and tenderness. Typically this is treated with some warm towels or compresses to improve blood flow through the area and help soften the superficial clots in the veins. Also anti-inflammatory such as naproxen or ibuprofen 2 tablets twice daily with food for the next several days to week. Add Tylenol every 4-6 hours if needed for pain. I would anticipate this slowly decreasing over the next several days and resolved by 4 to 5 days or so. Follow-up with your primary care if not improving steadily or if generally increased pain or swelling of the general calf. Rarely would this propagate into the deeper veins. Forms: PCP List Discharge Date/Time: 05/04/23 17:46
[2023-05-04 16:01] VITALS: BP 149/67; O2SAT 95
[2023-05-04] MEDS: ACETAMINOPHEN 325 MG TABLET PO STA (17:20)
[2023-05-04] MEDS: IBUPROFEN 600 MG TABLET PO STA (17:20)
--- NOTE | 2023-05-04 17:34 | Ultrasound Report ---
PROCEDURE: Duplex Ext Veins Right INDICATIONS: pain TECHNIQUE: Real-time imaging, as well as color and pulse Doppler interrogation, were performed of the lower extr emity deep veins from the inguinal ligament to the popliteal fossa. Attempted visualization of the ca lf veins was performed. COMPARISON: None. FINDINGS: The deep veins are normally compressible, and free of intraluminal thrombus. Color and pu lse Doppler demonstrate normal phasic intraluminal flow. There is normal augmentation response to di stal compression maneuver. The area of concern there is a superficial venous clot IMPRESSION: No deep venous thrombosis of the visualized lower extremity. Superficial venous thrombosis in the area of concern. Reviewed by: Alex Solomon MD on 05/04/2023 4:33 PM [facility] Approved by: Alex Solomon MD on 05/04/2023 4:33 PM [facility] Station ID: [id number]
== END 2023-05-04 17:46 | disposition home or self-care (01) ==
LOC: ED 14:16
DX: I80.3 Phlebitis and thrombophlebitis of lower extremities, unspecified (principal); I10 Essential (primary) hypertension; Z79.899 Other long term (current) drug therapy
CPT/HCPCS: 99283; 99284

== ENCOUNTER 2023-06-20 12:53 | Outpatient (CLI) | payer MEDICARE ==
--- NOTE | 2023-06-21 09:44 | Mammography Report ---
BILATERAL DIGITAL SCREENING MAMMOGRAM 3D/2D: 06/20/2023 CLINICAL: Routine screening. Comparison is made to exams dated: 08/09/2021 mammogram, 06/02/2020 mammogram, 02/04/2019 mammogram, mammogram, 10/26/2016 mammogram, and 01/19/2015 mammogram - [facility]. There are scattered areas of fibroglandular density in both breasts (category b / 25%-50% glandular t issue). No significant masses, calcifications, or other findings are seen in either breast. IMPRESSION: NEGATIVE There is no mammographic evidence of malignancy. A 1 year screening mammogram is recommended. Based on the Tyrer Cuzick model (a risk assessment model) the patients lifetime risk is 1.1% and her 10 year risk is 0.0%. According to the ACR, ACS, and NCCN guidelines, an annual breast MRI exam patricia g with mammogram is recommended if the patients lifetime risk is 20% or greater. This exam was interpreted at Station ID: [id number]. NOTE: For mammograms, a report in lay terms will be sent to the patient. Approximately 15% of breast malignancies will not be visualized mammographically. In the management of a palpable breast mass, a negative mammogram must not discourage biopsy of a clinically suspicious lesion. Electronically Signed By: Linette Patino M.D., PH.D /rosa:06/20/2023 16:20:21 letter sent: No_Letter ACR BI-RADS Category 1: Negative 3341F PARENCHYMAL PATTERN: (A) - The breast(s) demonstrate(s) scattered fibroglandular densities. BI-RADS CATEGORY: (1) - 1 Mammogram [id number] 1 year screening LATERALITY: (B)
== END 2023-06-20 12:54 | disposition home or self-care (01) ==
LOC: DI 12:53
PROVIDERS: ATTEND Internal Medicine
DX: Z12.31 Encounter for screening mammogram for malignant neoplasm of breast (principal); R92.323 Mammographic fibroglandular density, bilateral breasts

== ENCOUNTER 2023-06-20 12:56 | Outpatient (CLI) | payer MEDICARE ==
--- NOTE | 2023-06-20 16:34 | XRAY Report ---
PROCEDURE: Hip w/Pelvis 2-3V LT INDICATIONS: LEFT HIP PAIN TECHNIQUE: 2 views of the left hip were acquired. COMPARISON: 2 views of the bilateral hips dated 07/12/2015. FINDINGS: No acute fracture or dislocation. No suspicious bony lesions. IMPRESSION: No acute radiographic findings. If pain persists, consider cross-sectional imaging to further evaluat e hip pain. Reviewed by: Eliza Barone MD on 06/20/2023 4:33 PM PST Approved by: Eliza Barone MD on 06/20/2023 4:33 PM PST Station ID: [id number]
== END 2023-06-20 12:57 | disposition home or self-care (01) ==
LOC: DI 12:56
PROVIDERS: ATTEND Internal Medicine
DX: M25.552 Pain in left hip (principal)

== ENCOUNTER 2023-10-04 13:53 | Emergency (ER) | payer MEDICARE ==
--- NOTE | 2023-10-04 14:44 | ED Physician Documentation ---
PD HPI ABD PAIN - Stated complaint Stated Complaint: LT ABD PX - Chief complaint Chief Complaint: Abd Pain - Additional information Additional information: 83-year-old female with history of CLL presents emergency department for what she describes as left chest twinges. She says that she is not able to identify any routine or anything that triggers this. She is denies any shortness of breath or any chest pain. She says is just below her left nipple and it does get worse palpation. Pain does not get worse with inhalation or exhalation. She says that she has never experienced a thing like this before. No recent fevers or chills or illnesses. PD PAST MEDICAL HISTORY - Past Medical History Cardiovascular: Hypertension, Deep vein thrombosis, Pulmonary embolism Respiratory: None Neuro: None Endocrine/Autoimmune: None GI: GERD : None HEENT: Chronic vision loss, Glaucoma, Dental implants Psych: None Musculoskeletal: Chronic back pain Derm: None Other Past Medical History: chronic lymphatic luekemia - Past Surgical History 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, Other /: Hysterectomy HEENT: Cataracts, Detached retina repair - Present Medications Home Medications: Ambulatory Orders Medication Instructions Recorded Confirmed Multivitamin [Multivitamins] 1 tab PO DAILY 03/11/19 10/04/23 Cyanocobalamin (Vitamin B-12) 6,000 mcg PO DAILY 10/05/20 10/04/23 [Vitamin B-12] Spironolactone [Aldactone] 25 mg PO DAILY 10/04/22 10/04/23 Cholecalciferol [Vitamin D3] 5,000 unit PO DAILY 12/25/22 07/03/23 Esomeprazole Magnesium [Nexium 20 mg PO DAILY 10/04/23 10/04/23 24Hr] - Allergies Allergies/Adverse Reactions: Allergies Allergy/AdvReac Type Severity Reaction Status Date / Time codeine AdvReac Mild Nausea Verified 10/04/23 14:14 hydrocodone bitartrate * AdvReac Mild Nausea Verified 10/04/23 14:14 [From Vicodin] oxycodone HCl * AdvReac Mild Nausea Verified 10/04/23 14:14 [From Percocet] amlodipine AdvReac Unknown Verified 10/04/23 14:14 doxazosin AdvReac Unknown Verified 10/04/23 14:14 homatropine [From Hycodan] AdvReac Unknown Verified 10/04/23 14:14 hydrocodone [From Hycodan] AdvReac Unknown Verified 10/04/23 14:14 lisinopril AdvReac Unknown Verified 10/04/23 14:14 morphine AdvReac Nausea Verified 10/04/23 14:14 Penicillins AdvReac Nausea Verified 10/04/23 14:14 scopolamine AdvReac Unknown Verified 10/04/23 14:14 tramadol AdvReac Unknown Verified 10/04/23 14:14 beta basia AdvReac Unknown Uncoded 10/04/23 14:14 - Social History Does the pt smoke?: No Smoking Status: Never smoker Does the pt drink ETOH?: Yes ETOH Use: Liquor Does the pt have substance abuse?: No PD ED PE NORMAL - Vitals Vital signs reviewed: Yes - General General: Alert and oriented X 3, No acute distress, Well developed/nourished - HEENT HEENT: Atraumatic - Cardiac Cardiac: RRR, No gallop - Respiratory Respiratory: No respiratory distress, Clear bilaterally - Abdomen Abdomen: Normal bowel sounds, Soft, Non tender, Non distended, No organomegaly - Back Back: No CVA TTP - Derm Derm: Normal color, Warm and dry, No rash - Extremities Extremities: No edema, No calf tenderness / cord - Neuro Neuro: Alert and oriented X 3, 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 Relevant findings are: Rate: Rate (enter#) (66) Rhythm: NSR [place]: LAD Intervals: Normal AL Ischemia: Normal ST segments Compare to prior EKG: Unchanged from prior EKG Computer interpretation: Agree with computer - Labs Labs: Laboratory Tests 10/04/23 10/04/23 10/04/23 14:38 14:38 14:38 WBC 14.2 H RBC 4.70 Hgb 13.3 Hct 41.8 MCV 88.9 MCH 28.3 MCHC 31.8 L RDW 14.9 Plt Count 230 MPV 8.9 Neut # (Auto) Not Reportable Lymph # (Auto) Not Reportable [place] # (Auto) Not Reportable Eos # (Auto) Not Reportable Baso # (Auto) Not Reportable Absolute Nucleated RBC Not Reportable Total Counted 100 Band Neuts % (Manual) 0 Reactive Lymphs % (Man) 41 Abnorm Lymph % (Manual) 0 Nucleated RBC % Not Reportable Neutrophils # (Manual) 4.8 Lymphocytes # (Manual) 7.5 H Monocytes # (Manual) 0.9 Eosinophils # (Manual) 1.0 H Basophils # (Manual) 0.0 Differential Comment MANUAL DIFFERENTIAL Platelet Estimate NORMAL (130-450,000) Platelet Morphology NORMAL APPEARANCE RBC Morph Micro Appear NORMAL APPEARANCE Sodium 135 Potassium 4.4 Chloride 101 Carbon Dioxide 27 Anion Gap 7.0 BUN 17 Creatinine 0.9 Estimated GFR (MDRD) 60 L Glucose 94 Calcium 10.0 Total Bilirubin 0.5 AST 30 ALT 18 Alkaline Phosphatase 164 H Troponin I High Sens 3.8 Total Protein 7.2 Albumin 4.2 Globulin 3.0 Albumin/Globulin Ratio 1.4 Lipase 41 Urine Color Urine Clarity Urine pH Ur Specific [place] Urine Protein Urine Glucose (UA) Urine Ketones Urine Occult Blood Urine Nitrite Urine Bilirubin Urine Urobilinogen Ur Leukocyte Esterase Ur Microscopic Review Urine Culture Comments 10/04/23 15:22 WBC RBC Hgb Hct MCV MCH MCHC RDW Plt Count MPV Neut # (Auto) Lymph # (Auto) [place] # (Auto) Eos # (Auto) Baso # (Auto) Absolute Nucleated RBC Total Counted Band Neuts % (Manual) Reactive Lymphs % (Man) Abnorm Lymph % (Manual) Nucleated RBC % Neutrophils # (Manual) Lymphocytes # (Manual) Monocytes # (Manual) Eosinophils # (Manual) Basophils # (Manual) Differential Comment Platelet Estimate Platelet Morphology RBC Morph Micro Appear Sodium Potassium Chloride Carbon Dioxide Anion Gap BUN Creatinine Estimated GFR (MDRD) Glucose Calcium Total Bilirubin AST ALT Alkaline Phosphatase Troponin I High Sens Total Protein Albumin Globulin Albumin/Globulin Ratio Lipase Urine Color YELLOW Urine Clarity CLEAR Urine pH 6.0 Ur Specific [place] 1.010 Urine Protein NEGATIVE Urine Glucose (UA) NEGATIVE Urine Ketones NEGATIVE Urine Occult Blood NEGATIVE Urine Nitrite NEGATIVE Urine Bilirubin NEGATIVE Urine Urobilinogen 0.2 (NORMAL) Ur Leukocyte Esterase NEGATIVE Ur Microscopic Review NOT INDICATED Urine Culture Comments NOT INDICATED - Rads (name of study) Chest x-ray Relevant Findings:: Final report received, EMP independent interpretation of test, Other (No acute cardiopulmonary process) Abdomen pelvis CT with Relevant Findings:: Final report received, EMP independent interpretation of test, Other (Splenomegaly but no additional abnormality of the left upper quadrant) PD Medical Decision Making - ED course ED course: 83-year-old female presents with left upper quadrant pain. Labs are complete and she has mild leukocytosis, 14.2 WBC, lymphocyte slightly elevated at 7.5. CMP also complete no significant electrolyte abnormalities GFR 60 slightly suppressed, alk phos is also slightly elevated at 164. Patient does have known CLL and previously her alk phos has been elevated up to the 500s, so 164 tends to be within her normal limit. 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 EKG was complete does not show any ischemia or ST changes and her troponin was also found to be within normal limits making this less suspicious of this being related to a cardiac event. No need to do delta troponin as she is been experiencing this since yesterday evening. Urinalysis is also found to be unremarkable. I pursued a CT abdomen pelvis with contrast and no significant findings were seen they are either she has a known splenomegaly but no additional abnormalities of the left upper quadrant. Patient is told to follow- up with her primary care provider outpatient she does not have any left upper quadrant pain at this point in time she is given strict return precautions and told to try to keep a log of when she is noticing these " pain twinges" as she describes them. Departure - Departure Disposition: 01 Home, Self Care Clinical Impression: Left upper quadrant pain Instructions: ED Chest Pain Atypical Unkn Cause Comments: Thank you for trusting us with your care. We have completed labs, CT, and EKG, chest x-ray we are not seeing an acute abnormalities at this point in time. Please follow-up with your primary care provider as soon as possible to have your labs reevaluated as your alk phos is slightly elevated. If your chest pain gets any worse or changes please come back to the emergency department for further evaluation. Forms: PCP List Discharge Date/Time: 10/04/23 18:54
[2023-10-04 14:50] LABS: BASOPHILS % (AUTO) 0.5 %; EOSINOPHILS % (AUTO) 8.2 %; HCT - HEMATOCRIT 41.8 % (37.0-47.0); HGB - HEMOGLOBIN 13.3 g/dL (12.0-16.0); MEAN CORPUSCULAR HEMOGLOBIN 28.3 pg (27.0-31.0); MEAN CORPUSCULAR HGB CONC 31.8 g/dL (32.0-36.0); MEAN CORPUSCULAR VOLUME 88.9 fL (81.0-99.0); MEAN PLATELET VOLUME 8.9 fL (7.9-10.8); MONOCYTES % (AUTO) 4.9 %; NEUTROPHILS % (AUTO) 30.3 %; PLT - PLATELET COUNT 230 10^3/uL (130-450); RED CELL DISTRIBUTION WIDTH 14.9 % (12.0-15.0); WHITE BLOOD COUNT 14.2 x10^3/uL (4.8-10.8)
[2023-10-04 14:52] LABS: ABNORMAL LYMPHS % (MANUAL) 0 %; BAND NEUTROPHILS % (MANUAL) 0 %
[2023-10-04 15:12] LABS: ALBUMIN 4.2 g/dL (3.2-5.5); ALBUMIN/GLOBULIN RATIO 1.4 (1.0-2.2); BILIRUBIN,TOTAL 0.5 mg/dL (0.2-1.0); CREATININE 0.9 mg/dL (0.6-1.3); POTASSIUM 4.4 mmol/L (3.5-4.5); TOTAL PROTEIN 7.2 g/dL (6.4-8.9)
[2023-10-04 15:29] LABS: DIFFERENTIAL COMMENT MANUAL DIFFERENTIAL; LYMPHOCYTES # (MANUAL) 7.5 10^3/uL (1.5-3.5); LYMPHOCYTES % (MANUAL) 12 %; MONOCYTES # (MANUAL) 0.9 10^3/uL (0.0-1.0); NEUTROPHILS # (MANUAL) 4.8 10^3/uL (1.5-6.6); PLATELET ESTIMATE, MANUAL NORMAL (130-450,000) (NORMAL); PLATELET MORPHOLOGY NORMAL APPEARANCE (NORMAL); RBC MORPHOLOGY (MULTIPLE) NORMAL APPEARANCE (NORMAL); REACTIVE LYMPHS % (MANUAL) 41 %
--- NOTE | 2023-10-04 15:29 | XRAY Report ---
PROCEDURE: Chest 2V INDICATIONS: left chest pain TECHNIQUE: 2 views of the chest were acquired. COMPARISON: 03/14/2020. FINDINGS: Surgical changes and devices: None. Lungs and pleura: No pleural effusions or pneumothorax. Lungs are clear. Mediastinum: Mediastinal contours appear normal. Heart size is normal. Bones and chest wall: No suspicious bony lesions. Overlying soft tissues appear unremarkable. IMPRESSION: No acute cardiopulmonary process. Reviewed by: Óscar Beckett MD on 10/04/2023 3:27 PM PDT Approved by: Óscar Beckett MD on 10/04/2023 3:27 PM PDT Station ID: [id number]
[2023-10-04 15:33] LABS: BILIRUBIN,URINE NEGATIVE (NEGATIVE); GLUCOSE, URINE (UA) NEGATIVE (NEGATIVE); KETONES,URINE (UA) NEGATIVE (NEGATIVE); LEUKOCYTE ESTERASE, URINE NEGATIVE (NEGATIVE); NITRITE,URINE NEGATIVE (NEGATIVE); OCCULT BLOOD,URINE NEGATIVE (NEGATIVE); PROTEIN,URINE NEGATIVE (NEGATIVE); UROBILINOGEN,URINE 0.2 (NORMAL) E.U./dL (NORMAL)
[2023-10-04 15:34] LABS: CLARITY,URINE CLEAR (CLEAR)
[2023-10-04] MEDS ORDERED: iohexoL-300 100 ML VIAL ONE (15:50)
[2023-10-04] MEDS: SODIUM CHLORIDE 0.9% 1,000 ML IV ONE (16:01)
[2023-10-04] MEDS: ONDANSETRON 4 MG/2 ML VIAL IVP STA (16:15)
--- NOTE | 2023-10-04 18:09 | CT Report ---
PROCEDURE: Chest W INDICATIONS: LUQ pain CONTRAST: 100ml omni 300 TECHNIQUE: After the administration of intravenous contrast, a CT scan of the chest was performed. Images were recorded and evaluated at appropriate window settings. Reformats: axial MIP of the chest, coronal and sagittal. For radiation dose reduction, the following was used: automated exposure control, adjustme nt of mA and/or kV according to patient size. COMPARISON: 07/04/2016. Correlation is made with the accompanying imaging. FINDINGS: Image quality: Diagnostic. Chest wall and lower neck: No thyroid nodule which requires sonographic follow up. No axillary or sup raclavicular adenopathy by size. Lungs and pleura: No consolidation. No pleural effusions. No pneumothorax. No suspicious pulmonary n odules which require follow up. Mediastinum: Heart size is normal. No pericardial effusion. No large vessel abnormality. An enlarged left perihilar lymph nodes can be seen, as on series 3 image 42, measuring 11 x 21 mm. The frankly en larged mediastinal lymph nodes or right perihilar lymph nodes are seen. Bones: No aggressive osseous abnormality. Age-appropriate degenerative changes are seen. There is accentuated thoracic kyphosis. Upper Abdomen: The spleen is enlarged, measuring up to 15.5 cm on these images. The visualized portio ns of the upper abdominal structures are otherwise within normal limits. IMPRESSION: No significant pulmonary abnormality is seen. No pneumothorax or pleural effusion. There is a mildly enlarged left perihilar lymph node seen. Splenomegaly can be seen. Reviewed by: Kenny Willis MD on 10/04/2023 5:07 PM HUONG Approved by: Kenny Willis MD on 10/04/2023 5:07 PM AKDT Station ID: [id number]
--- NOTE | 2023-10-04 18:11 | CT Report ---
PROCEDURE: Abdomen/Pelvis W INDICATIONS: LUQ pain CONTRAST: 100ml omni 300 TECHNIQUE: After the administration of intravenous contrast, a CT scan of the abdomen and pelvis was performed. Images were recorded and evaluated at appropriate window settings. Reformats: coronal and sagittal. F or radiation dose reduction, the following was used: automated exposure control, adjustment of mA and /or kV according to patient size. COMPARISON: 06/15/2022. Correlation is made with the accompanying imaging. FINDINGS: Image quality: Diagnostic. Lower chest: Unremarkable. Liver: No solid mass. Gallbladder and biliary tree: Within normal limits. Spleen: The spleen is enlarged, measuring up to 15.5 cm. No focal splenic lesion can be seen. No johnny splenic inflammatory change can be seen. Pancreas: No pancreatic ductal dilation. Adrenals: No adrenal nodule. Kidneys and ureters: No hydronephrosis. No renal cystic lesion which requires follow up. No solid mas s. Stomach, bowel and peritoneum: No bowel distension. No pathologic free fluid. Lymph nodes: No central or retroperitoneal adenopathy. Vessels: No infrarenal aortic aneurysm. Atherosclerotic calcification is seen. PELVIS Reproductive organs: This patient is status post hysterectomy. No adnexal masses can be seen. Bladder: No abnormal wall thickening, accounting for underdistention. Pelvic lymph nodes: No pelvic adenopathy by size criteria. Bones: No aggressive osseous abnormality. Focal L5-S1 degenerative change is seen. Milder degenerativ e changes are seen elsewhere. Other: There is a moderate fat-containing left groin hernia, as on series 3 image 127. IMPRESSION: Splenomegaly is seen, yet without additional abnormality of the left upper quadrant in this patient w ith a presenting history of left upper quadrant pain. Additional findings: Focal L4-L5 degenerative change Hysterectomy Moderate fat-containing left groin hernia Reviewed by: Kenny Willis MD on 10/04/2023 5:10 PM HUONG Approved by: Kenny Willis MD on 10/04/2023 5:10 PM AKZULLY Station ID: [id number]
[2023-10-04 19:01] VITALS: BP 143/63; O2SAT 95
[2023-10-04] MEDS: iohexoL-300 100 ML VIAL IVP ONE (19:05)
== END 2023-10-04 18:54 | disposition home or self-care (01) ==
LOC: ED 13:53
DX: R10.12 Left upper quadrant pain (principal); C91.10 Chronic lymphocytic leukemia of B-cell type not having achieved remission; I10 Essential (primary) hypertension; Z86.718 Personal history of other venous thrombosis and embolism; Z86.711 Personal history of pulmonary embolism; Z96.5 Presence of tooth-root and mandibular implants
CPT/HCPCS: 36415; 71046; 71260; 74177; 80053; 81003; 83690; 84484; 85025; 93005; 96374; 99284; Q9967; 81001; 87086

== ENCOUNTER 2023-11-17 20:12 | Outpatient (CLI) | payer MEDICARE | END 2023-11-17 23:59 | disposition EMS.NT | LOC: EMS 20:12 | DX: F10.90 Alcohol use, unspecified, uncomplicated (principal); W06.XXXA Fall from bed, initial encounter; Y92.003 Bedroom of unspecified non-institutional (private) residence as the place of occurrence of the external cause ==

== ENCOUNTER 2023-12-22 10:20 | Observation (INO) | payer MEDICARE ==
[2023-12-22] MEDS: SODIUM CHLORIDE 0.9% 1,000 ML IV STA ×2 (12:14→23:33)
[2023-12-22 12:17] LABS: BASOPHILS % (AUTO) 0.4 %; EOSINOPHILS % (AUTO) 1.1 %; HGB - HEMOGLOBIN 10.4 g/dL (12.0-16.0); LYMPHOCYTES % (AUTO) 37.9 %; MEAN CORPUSCULAR HEMOGLOBIN 26.3 pg (27.0-31.0); MEAN CORPUSCULAR HGB CONC 32.5 g/dL (32.0-36.0); MEAN CORPUSCULAR VOLUME 80.8 fL (81.0-99.0); MEAN PLATELET VOLUME 9.2 fL (7.9-10.8); MONOCYTES % (AUTO) 14.2 %; NEUTROPHILS % (AUTO) 46.1 %; PLT - PLATELET COUNT 206 10^3/uL (130-450); RED BLOOD COUNT 3.96 10^6/uL (4.20-5.40); RED CELL DISTRIBUTION WIDTH 16.8 % (12.0-15.0)
[2023-12-22 12:20] LABS: SLIDE REVIEW? Indicated
[2023-12-22 12:22] LABS: ABNORMAL LYMPHS % (MANUAL) 0 %
[2023-12-22 12:23] LABS: BILIRUBIN,URINE SMALL (NEGATIVE); GLUCOSE, URINE (UA) NEGATIVE (NEGATIVE); KETONES,URINE (UA) NEGATIVE (NEGATIVE); LEUKOCYTE ESTERASE, URINE NEGATIVE (NEGATIVE); NITRITE,URINE NEGATIVE (NEGATIVE); OCCULT BLOOD,URINE NEGATIVE (NEGATIVE); PROTEIN,URINE NEGATIVE (NEGATIVE); UROBILINOGEN,URINE 0.2 (NORMAL) E.U./dL (NORMAL)
[2023-12-22 12:27] LABS: CLARITY,URINE CLEAR (CLEAR)
[2023-12-22 12:29] LABS: ALBUMIN 3.3 g/dL (3.2-5.5); ALBUMIN/GLOBULIN RATIO 1.1 (1.0-2.2); BILIRUBIN,TOTAL 0.9 mg/dL (0.2-1.0); CALCIUM 10.8 mg/dL (8.5-10.3); MAGNESIUM 1.6 mg/dL (1.7-2.3); PHOSPHORUS 3.4 mg/dL (2.5-5.0); TOTAL PROTEIN 6.2 g/dL (6.4-8.9)
--- NOTE | 2023-12-22 12:29 | ED Physician Documentation ---
History of Present Illness - Stated complaint Stated Complaint: LEG PX BOTH - Chief complaint Chief Complaint: Ext Problem - History obtained from History obtained from: Patient - History of Present Illness Timing: How many weeks ago (2) Pain level max: 7 Pain level now: 5 - Additonal information Additional information: 83-year-old female states that she has had bilateral leg pain for the past 2 weeks. She states she sees her oncologist tomorrow. She states that she was placed on prednisone a little over a month ago for her CLL. She states that since coming off of the prednisone she has developed bilateral leg pain. She does not feel like her legs are weak but rather that they hurt. She has not taken anything for pain. Worse with walking, better with rest. Decided to come in today to "be checked". No fevers. No chills. No cough or congestion. She states she is not on any other medications at home. No falls. No trauma. She does not have any swelling to her legs. No discoloration. No chest pain. No shortness of breath. No numbness or tingling. Review of Systems Constitutional: denies: Fever, Chills Nose: denies: Rhinorrhea / runny nose, Congestion Respiratory: denies: Cough GI: denies: Vomiting, Diarrhea Skin: denies: Rash Musculoskeletal: denies: Neck pain, Back pain Neurologic: denies: Headache PD PAST MEDICAL HISTORY - Past Medical History Past Medical History: Yes Cardiovascular: Hypertension, Deep vein thrombosis, Pulmonary embolism Respiratory: None Neuro: None Endocrine/Autoimmune: None GI: GERD : None HEENT: Chronic vision loss, Glaucoma, Dental implants Psych: None Musculoskeletal: Chronic back pain Derm: None Other Past Medical History: CLL - Past Surgical History 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, 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 HEENT: Cataracts, Detached retina repair - Present Medications Home Medications: Ambulatory Orders Medication Instructions Recorded Confirmed Multivitamin [Multivitamins] 1 tab PO DAILY 03/11/19 11/20/23 Cyanocobalamin (Vitamin B-12) 6,000 mcg PO DAILY 10/05/20 11/20/23 [Vitamin B-12] Spironolactone [Aldactone] 25 mg PO DAILY 10/04/22 11/20/23 Cholecalciferol [Vitamin D3] 5,000 unit PO DAILY 12/25/22 11/20/23 Esomeprazole Magnesium [Nexium 20 mg PO DAILY 10/04/23 11/20/23 24Hr] predniSONE [Prednisone] 40 mg PO DAILY 7 Days #21 tab 11/20/23 - Allergies Allergies/Adverse Reactions: Allergies Allergy/AdvReac Type Severity Reaction Status Date / Time codeine AdvReac Mild Nausea Verified 12/22/23 10:46 hydrocodone bitartrate * AdvReac Mild Nausea Verified 12/22/23 10:46 [From Vicodin] oxycodone HCl * AdvReac Mild Nausea Verified 12/22/23 10:46 [From Percocet] amlodipine AdvReac Unknown Verified 12/22/23 10:46 doxazosin AdvReac Unknown Verified 12/22/23 10:46 homatropine [From Hycodan] AdvReac Unknown Verified 12/22/23 10:46 hydrocodone [From Hycodan] AdvReac Unknown Verified 12/22/23 10:46 lisinopril AdvReac Unknown Verified 12/22/23 10:46 morphine AdvReac Nausea Verified 12/22/23 10:46 Penicillins AdvReac Nausea Verified 12/22/23 10:46 scopolamine AdvReac Unknown Verified 12/22/23 10:46 tramadol AdvReac Unknown Verified 12/22/23 10:46 beta basia AdvReac Unknown Uncoded 12/22/23 10:46 - Social History Does the pt smoke?: No Smoking Status: Never smoker Does the pt drink ETOH?: Yes Does the pt have substance abuse?: No PD ED PE NORMAL - Vitals Vital signs reviewed: Yes - General General: Alert and oriented X 3, No acute distress - HEENT HEENT: Moist mucous membranes - Neck Neck: Supple, no meningeal sign - Cardiac Cardiac: RRR, Strong equal pulses - Respiratory Respiratory: No respiratory distress, Clear bilaterally - Abdomen Abdomen: Soft, Non tender, Non distended - Back Back: No CVA TTP, No spinal TTP - Derm Derm: Warm and dry, No rash - Extremities Extremities: No deformity, No tenderness to palpate, Normal ROM s pain, Other (Normal strength in the bilateral lower extremities.) - Neuro Neuro: Alert and oriented X 3, 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 service engineer 2-12 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, No motor deficit, No sensory deficit, Normal speech Results - Vitals Vitals: Vital Signs - 24 hr 12/22/23 10:47 Temperature 36.3 C L Heart Rate 84 Respiratory 16 Rate Blood Pressure 108/57 L O2 Saturation 99 Oxygen O2 Source Room air - Labs Labs: Laboratory Tests 12/22/23 12/22/23 12/22/23 12:10 12:12 12:12 WBC 7.0 RBC 3.96 L Hgb 10.4 L Hct 32.0 L MCV 80.8 L MCH 26.3 L MCHC 32.5 RDW 16.8 H Plt Count 206 MPV 9.2 Neut # (Auto) Not Reportable Lymph # (Auto) Not Reportable [place] # (Auto) Not Reportable Eos # (Auto) Not Reportable Baso # (Auto) Not Reportable Absolute Nucleated RBC Not Reportable Total Counted 100 Band Neuts % (Manual) 4 Abnorm Lymph % (Manual) 0 Nucleated RBC % Not Reportable Neutrophils # (Manual) 3.8 Lymphocytes # (Manual) 2.7 Monocytes # (Manual) 0.4 Eosinophils # (Manual) 0.1 Basophils # (Manual) 0.0 Differential Comment MANUAL DIFFERENTIAL Manual Slide Review Indicated WBC Morphology 1+ SMUDGE Platelet Estimate NORMAL (130-450,000) Platelet Morphology NORMAL APPEARANCE RBC Morph Micro Appear 2+ HYPOCHROMASIA Sodium 125 L Potassium 5.0 H Chloride 93 L Carbon Dioxide 26 Anion Gap 6.0 BUN 21 H Creatinine 1.0 Estimated GFR (MDRD) 53 L Glucose 101 Calcium 10.8 H Phosphorus 3.4 Magnesium 1.6 L Total Bilirubin 0.9 AST 51 H ALT 55 Alkaline Phosphatase 598 H Total Protein 6.2 L Albumin 3.3 Globulin 2.9 Albumin/Globulin Ratio 1.1 Lipase 21 Urine Color YELLOW Urine Clarity CLEAR Urine pH 6.0 Ur Specific [place] 1.025 Urine Protein NEGATIVE Urine Glucose (UA) NEGATIVE Urine Ketones NEGATIVE Urine Occult Blood NEGATIVE Urine Nitrite NEGATIVE Urine Bilirubin SMALL H Urine Urobilinogen 0.2 (NORMAL) Ur Leukocyte Esterase NEGATIVE Ur Microscopic Review NOT INDICATED Urine Culture Comments NOT INDICATED PD Medical Decision Making - ED course Complexity details: reviewed results, re-evaluated patient, considered differential, d/w patient, d/w [employer] consultant ED course: Patient is found to have significant hyponatremia. Sodium down to 125. Her magnesium is also low at 1.6. Magnesium replaced. IV fluids started. Given normal saline. No altered mental status. Her normal sodium level is around 1 35-1 37. She is on spironolactone. She states that she drinks a lot of water at home. It has been warm lately. Given her muscle pain and hyponatremia, discussed the case with the hospitalist for observation to correct her electrolytes. She has chronic elevation of her alkaline phosphatase and liver function test. This document was made in part using voice recognition software. While efforts are made to proofread this document, sound alike and grammatical errors may occur. Departure - Departure Disposition: ED Place in Observation Clinical Impression: Hyponatremia, Hypomagnesemia, Leg pain, bilateral Condition: Stable Discharge Date/Time: 12/22/23 15:40
[2023-12-22 12:38] LABS: BAND NEUTROPHILS % (MANUAL) 4 %; EOSINOPHILS # (MANUAL) 0.1 10^3/uL (0-0.7); LYMPHOCYTES # (MANUAL) 2.7 10^3/uL (1.5-3.5); LYMPHOCYTES % (MANUAL) 39 %; MONOCYTES # (MANUAL) 0.4 10^3/uL (0.0-1.0); NEUTROPHILS # (MANUAL) 3.8 10^3/uL (1.5-6.6)
[2023-12-22 12:41] LABS: PLATELET ESTIMATE, MANUAL NORMAL (130-450,000) (NORMAL); PLATELET MORPHOLOGY NORMAL APPEARANCE (NORMAL); WBC MORPHOLOGY (MULTIPLE) 1+ SMUDGE (NORMAL)
[2023-12-22 12:42] LABS: DIFFERENTIAL COMMENT MANUAL DIFFERENTIAL
[2023-12-22] MEDS: MAGNESIUM SULFATE 2 GRAM 2 GM/50 ML BAG IV ONE (12:55)
[2023-12-22] MEDS ORDERED: SODIUM CHLORIDE FLUSH 0.9% 10 ML SYRINGE IVP PRN (14:36)
--- NOTE | 2023-12-22 14:46 | HISTORY & PHYSICAL EXAMINATION ---
Chief Complaint - Chief Complaint Chief Complaint: Leg Pain History of Present Illness - Admitted From Admitted From:: Emergency Room - History Obtained From Records Reviewed: Yes History obtained from: Patient and ER physician (Dudley Soto MD) - History of Present Illness HPI Comment/Other: Louie Ferro is a 83-year-old woman with a past medical history significant for CLL. She presented to the emergency room with complaints of leg pain. She reports she started on prednisone approximately 1 month ago and has complained of leg pain since that time. She reports that the pain in her legs is localized between her knee and her ankles. She states the pain has gotten worse and she reports she now walks "like a cripple". She denies fevers and chills. She denies chest pain and shortness of breath. She denies nausea and vomiting and abdominal pain. Laboratory workup performed in the emergency room revealed a serum sodium of 125 and a serum potassium of 5. Magnesium is 1.6. Patient received magnesium intravenously in the emergency room.No imaging studies were performed in the emergency room. 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 HEENT: reports: Cataracts, Detached retina repair Meds/Allgy - Home Medications Home Medications: Ambulatory Orders Medication Instructions Recorded Confirmed Multivitamin [Multivitamins] 1 tab PO DAILY 03/11/19 11/20/23 Cyanocobalamin (Vitamin B-12) 6,000 mcg PO DAILY 10/05/20 11/20/23 [Vitamin B-12] Spironolactone [Aldactone] 25 mg PO DAILY 10/04/22 11/20/23 Cholecalciferol [Vitamin D3] 5,000 unit PO DAILY 12/25/22 11/20/23 Esomeprazole Magnesium [Nexium 20 mg PO DAILY 10/04/23 11/20/23 24Hr] predniSONE [Prednisone] 40 mg PO DAILY 7 Days #21 tab 11/20/23 - Allergies Allergies/Adverse Reactions: Allergies Allergy/AdvReac Type Severity Reaction Status Date / Time codeine AdvReac Mild Nausea Verified 12/22/23 10:46 hydrocodone bitartrate * AdvReac Mild Nausea Verified 12/22/23 10:46 [From Vicodin] oxycodone HCl * AdvReac Mild Nausea Verified 12/22/23 10:46 [From Percocet] amlodipine AdvReac Unknown Verified 12/22/23 10:46 doxazosin AdvReac Unknown Verified 12/22/23 10:46 homatropine [From Hycodan] AdvReac Unknown Verified 12/22/23 10:46 hydrocodone [From Hycodan] AdvReac Unknown Verified 12/22/23 10:46 lisinopril AdvReac Unknown Verified 12/22/23 10:46 morphine AdvReac Nausea Verified 12/22/23 10:46 Penicillins AdvReac Nausea Verified 12/22/23 10:46 scopolamine AdvReac Unknown Verified 12/22/23 10:46 tramadol AdvReac Unknown Verified 12/22/23 10:46 beta basia AdvReac Unknown Uncoded 12/22/23 10:46 Review of Systems - Constitutional Constitutional: reports: Poor appetite - Eyes Eyes: reports: Pain Exam - Vital Signs Vital Signs: Vital Signs x48h Temp Pulse Resp BP Pulse Ox 12/22/23 10:47 36.3 C L 84 16 108/57 L 99 - Physical Exam General Appearance: positive: No acute distress, Alert Eyes Bilateral: positive: Conjunctivae nml Neck: positive: No JVD, Trachea midline Respiratory: positive: Other (Good air exchange in all lung whelan no wheezing or crackles.) Cardiovascular: positive: Other (Positive S1-S2 no extra heart sounds) Abdomen: positive: Other (Soft nontender nondistended positive bowel sounds.) Skin: positive: No rash Extremities: positive: Nml appearance, No pedal edema Neurologic/Psychiatric: positive: Oriented x3, Motor nml Conclusion/Plan - Problem List (1) Hyponatremia Conclusion/Plan: Priscilla Ferro has moderate hyponatremia. This may be contributing to her lower extremity pain. Continue NS at 100 mL/hour Repeat CMP, Mg and Phos in the morning. (2) Hypomagnesemia Conclusion/Plan: replacement (3) Leg pain, bilateral Conclusion/Plan: Etiology is not clear. Patient to undergo a ultrasound of the lower extremities in the morning. Hold spironolactone. - Lab Results Fish Bones: 12/22/23 12:12 12/22/23 12:12
[2023-12-22] MEDS: SODIUM CHLORIDE 0.9% 1,000 ML IV SCH (16:50)
[2023-12-22] MEDS: SODIUM CHLORIDE FLUSH 0.9% 10 ML SYRINGE IVP SCH (19:58)
[2023-12-23] MEDS: ACETAMINOPHEN 500 MG TABLET PO PRN (01:07)
[2023-12-23 06:07] LABS: ALBUMIN 2.6 g/dL (3.2-5.5); ALBUMIN/GLOBULIN RATIO 1.2 (1.0-2.2); BILIRUBIN,TOTAL 0.8 mg/dL (0.2-1.0); CALCIUM 9.6 mg/dL (8.5-10.3); MAGNESIUM 1.6 mg/dL (1.7-2.3); PHOSPHORUS 3.2 mg/dL (2.5-5.0); POTASSIUM 4.1 mmol/L (3.5-4.5); TOTAL PROTEIN 4.8 g/dL (6.4-8.9)
--- NOTE | 2023-12-23 13:39 | Ultrasound Report ---
PROCEDURE: Duplex Ext Veins Bilateral INDICATIONS: Dudley Soto MD TECHNIQUE: Real-time imaging, as well as color and pulse Doppler interrogation, were performed of the deep veins of both legs from the inguinal ligament to the popliteal fossa. Attempted visualization of the calf veins was performed. COMPARISON: None FINDINGS: The deep veins bilaterally are normally compressible, and free of intraluminal thrombus. Color and pulse Doppler demonstrate normal phasic intravascular flow. There is normal augmentation r esponse to distal compression maneuver. There is near occlusive clot present in the superior aspect of the right greater saphenous vein. Ther e is also nonocclusive clot in a superficial vein anterior to the knee. IMPRESSION: 1. No DVT in both lower extremities. 2. Superficial thrombosis involving the upper thigh greater saphenous vein and also the superficial v ein anterior to the knee in the right lower extremity. Reviewed by: Óscar Beckett MD on 12/23/2023 1:38 PM PDT Approved by: Óscar Beckett MD on 12/23/2023 1:38 PM PDT Station ID: [id number]
--- NOTE | 2023-12-23 16:51 | DISCHARGE SUMMARY ---
Discharge Summary Admit Date: 12/22/23 Discharge Date: 12/23/23 Discharging Provider: Alex Estrada MD Primary Care Provider: Belen Ryan MD Code Status: Attempt Resuscitation Condition at Discharge: Stable Discharge Disposition: 01 Home, Self Care Discharge Facility Name: [facility] - DIAGNOSES Admission Diagnoses: (1) Hyponatremia (2) Hypomagnesemia (3) Leg pain, bilateral Discharge Diagnoses with Status of Each Condition: (1) Hyponatremia (2) Hypomagnesemia (3) Leg pain, bilateral (4) Superficial thrombosis of the upper thigh greater saphenous vein and the superficial vein anterior to the knee of the right lower extremity. - HPI History of Present Illness: Louie Ferro is a 83-year-old woman with a past medical history significant for CLL. She presented to the emergency room with complaints of leg pain. She reports she started on prednisone approximately 1 month ago and has complained of leg pain since that time. She reports that the pain in her legs is localized between her knee and her ankles. She states the pain has gotten worse and she reports she now walks "like a cripple". She denies fevers and chills. She denies chest pain and shortness of breath. She denies nausea and vomiting and abdominal pain. Laboratory workup performed in the emergency room revealed a serum sodium of 125 and a serum potassium of 5. Magnesium is 1.6. Patient received magnesium intravenously in the emergency room.No imaging studies were performed in the emergency room. - CONSULTS | PROCEDURES Procedures: 12/23/23 Bilateral Venous Duplex of Lower Extremities - HOSPITAL COURSE Hospital Course: Priscilla Ferro was admitted to the medical floor under the status of observation.She was treated with normal saline at 100 mL an hour. Follow-up serum sodium is 130 within normal potassium, phosphorus and a mildly low magnesium. Ms. Ferro's complaints of leg pain have nearly resolved and most likely was related to her hyponatremia. Urinalysis performed on admission was negative for infection. Bilateral venous duplex study was performed on December 23, 2023 and revealed no e vidence of deep venous thrombosis in the lower extremities. The study did demonstrate superficial thrombosis involving the upper thigh greater saphenous vein and also the superficial vein anterior to the knee of the right lower extremity. No treatment is necessary at this time. The patient was evaluated by physical therapy and Occupational Therapy prior to discharge and they recommended home health and for the patient to use a walker during ambulation. Recommend patient take 1 salt tablet daily for 7 days. Patient was also counseled not to drink large amounts of water and to consider purchasing electrolyte balanced fluids such as Gatorade. - ALLERGIES Allergies/Adverse Reactions: Allergies Allergy/AdvReac Type Severity Reaction Status Date / Time codeine AdvReac Mild Nausea Verified 12/22/23 10:46 hydrocodone bitartrate * AdvReac Mild Nausea Verified 12/22/23 10:46 [From Vicodin] oxycodone HCl * AdvReac Mild Nausea Verified 12/22/23 10:46 [From Percocet] amlodipine AdvReac Unknown Verified 12/22/23 10:46 doxazosin AdvReac Unknown Verified 12/22/23 10:46 homatropine [From Hycodan] AdvReac Unknown Verified 12/22/23 10:46 hydrocodone [From Hycodan] AdvReac Unknown Verified 12/22/23 10:46 lisinopril AdvReac Unknown Verified 12/22/23 10:46 morphine AdvReac Nausea Verified 12/22/23 10:46 Penicillins AdvReac Nausea Verified 12/22/23 10:46 scopolamine AdvReac Unknown Verified 12/22/23 10:46 tramadol AdvReac Unknown Verified 12/22/23 10:46 beta basia AdvReac Unknown Uncoded 12/22/23 10:46 - MEDICATIONS Home Medications: Ambulatory Orders Medication Instructions Recorded Confirmed Aspirin Chewable [St Sujit 81 mg PO DAILY 12/23/23 12/23/23 Aspirin] Cholecalciferol (Vitamin D3) 50 mcg PO DAILY 12/23/23 12/23/23 [Vitamin D3] Magnesium 250 mg PO DAILY 12/23/23 12/23/23 Mupirocin 2% Oint [Bactroban 2% 1 each TOP DAILY 12/23/23 12/23/23 Oint] Omeprazole 20 mg PO DAILY PRN 12/23/23 12/23/23 Spironolactone [Aldactone] 25 mg PO DAILY 12/23/23 12/23/23 Vitamin B Complex Vit C No.3 [B 1 cap PO DAILY 12/23/23 12/23/23 Complex with Vitamin C] - PHYSICAL EXAM AT DISCHARGE General Appearance: positive: No acute distress, Alert Eyes Bilateral: positive: Conjunctivae nml, No scleral icterus Neck: positive: No JVD, Trachea midline Respiratory: positive: Other (Good air exchange in all lung whelan no wheezing no crackles.) Cardiovascular: positive: Other (Positive S1-S2 no extra heart sounds.) Abdomen: positive: Other (Soft nontender nondistended positive bowel sounds.) Skin: positive: No rash Extremities: positive: No pedal edema Neurologic/Psychiatric: positive: Motor nml - LABS Result Diagrams: 12/22/23 12:12 12/23/23 05:35 - QUALITY (Female Hip Fx Only) Was patient sent home on osteoporosis medication?: No - FOLLOW UP Follow Up: Please follow-up with your primary care provider, Belen Ryan MD, in 2-4 weeks. - TIME SPENT Time Spent in Discharge (Minutes): 32 (32 minutes spent coordinating discharge of patient and counseling patient with regard to results of duplex ultrasound, her diagnosis and management of her low sodium and magnesium.)
--- NOTE | 2023-12-23 16:51 | Discharge Plan ---
Discharge Plan Problem Reviewed?: Yes Disposition: 01 Home, Self Care Condition: Stable Diet: Regular Activity Restrictions: Activity as Tolerated Shower Restrictions: No Driving Restrictions: Yes (Recommend no driving) Assistance Devices: Walker Weight Bearing: Full Weight Instruction Topics: Hyponatremia Dc Health Concerns: History of Present Illness: Louie Ferro is a 83-year-old woman with a past medical history significant for CLL. She presented to the emergency room with complaints of leg pain. She reports she started on prednisone approximately 1 month ago and has complained of leg pain since that time. She reports that the pain in her legs is localized between her knee and her ankles. She states the pain has gotten worse and she reports she now walks "like a cripple". She denies fevers and chills. She denies chest pain and shortness of breath. She denies nausea and vomiting and abdominal pain. Laboratory workup performed in the emergency room revealed a serum sodium of 125 and a serum potassium of 5. Magnesium is 1.6. Patient received magnesium intravenously in the emergency room.No imaging studies were performed in the emergency room. Hospital Course: Priscilla Ferro was admitted to the medical floor under the status of observation.She was treated with normal saline at 100 mL an hour. Follow-up serum sodium is 130 within normal potassium, phosphorus and a mildly low magnesium. Ms. Ferro's complaints of leg pain have nearly resolved and most likely was related to her hyponatremia. Urinalysis performed on admission was negative for infection. Bilateral venous duplex study was performed on December 23, 2023 and revealed no evidence of deep venous thrombosis in the lower extremities. The study did demonstrate superficial thrombosis involving the upper thigh greater saphenous vein and also the superficial vein anterior to the knee of the right lower extremity. No treatment is necessary at this time. The patient was evaluated by physical therapy and Occupational Therapy prior to discharge and they recommended home health and for the patient to use a walker during ambulation. Recommend patient take 1 salt tablet daily for 7 days. Patient was also counseled not to drink large amounts of water and to consider purchasing electrolyte balanced fluids such as Gatorade. Plan of Treatment: 1. Please take all medications as prescribed. 2. Please take 1 salt tablet daily for 7 days. Recommend purchasing them at any drugstore or grocery store. 3. Please take magnesium oxide or similar magnesium supplement daily for 2 weeks. Recomend purchasing this medication over the counter at a local drug store or grocery store. 3. Please follow-up with your primary care provider, And Shelby in 2-4 weeks. Please also follow-up with your oncologist. Care Goals: To improve and maintain current qualit of life. Assessment: In summary, Priscilla Ferro was admitted to the hospital under the status of observation for complaints of bilateral lower extremity leg pain. She was treated with intravenous fluids and her serum sodium improved from 125 to 130 overnight her symptoms significantly improved. She is now stable for discharge to home. Follow-Up Care: Home Health - RN, Home Health - PT, Home Health - OT No Smoking: If you smoke, Please STOP! Call for help. Follow-up with: Belen Ryan MD [Primary Care Provider] -
[2023-12-23 17:32] VITALS: BP 105/65; O2SAT 96
--- NOTE | 2023-12-23 17:34 | PHARMACY PROGRESS NOTE ---
- Best Possible Medication History Admit Date and Time: 12/22/23 1438 Processed by: Pharmacy Medications reviewed in ED?: No Medication History completed: Yes Patient Interview: Completed Secondary Source(s): Other family member, Insurance records (medication reconciliation completed by pharmacy benefits coordinator, Robbin Sullivan with patient's daughter) As the person ultimately responsible for medication therapy, providers are able to order a medication from an existing home medication list in [facility] via the "Reconcile Routine" prior to Confirmation of that medication by system support administrator. Such practice is discouraged except when the physician, in their clinical judgment, deems that a medical need exists for a medication without regard to previous use.
== END 2023-12-23 18:20 | disposition home or self-care (01) ==
LOC: ED 10:20 → MS2 14:36
PROVIDERS: ADMIT Internal Medicine; ATTEND Internal Medicine
DX: E87.1 Hypo-osmolality and hyponatremia (principal); E83.42 Hypomagnesemia; I82.811 Embolism and thrombosis of superficial veins of right lower extremity; C91.10 Chronic lymphocytic leukemia of B-cell type not having achieved remission; I10 Essential (primary) hypertension; Z86.718 Personal history of other venous thrombosis and embolism; Z86.711 Personal history of pulmonary embolism
CPT/HCPCS: 36415; 80053; 81003; 82607; 82746; 83690; 83735; 84100; 85025; 93970; 96361; 96365; 97162; 97166; 99284; 99285; A9270; G0378; 81001; 87086

== ENCOUNTER 2023-12-29 07:59 | Emergency (ER) | payer MEDICARE ==
--- NOTE | 2023-12-29 08:20 | ED Physician Documentation ---
PD HPI ALTERED MENTAL STATUS - Stated complaint Stated Complaint: PX IN LEGS,NOT EATING,WEAK,N/V - Chief complaint Chief Complaint: General - History obtained from History obtained from: Patient, Family (daughter) - History of Present Illness Timing - onset: How many weeks ago (few) Timing - duration: Weeks (few) Timing - details: Gradual onset, Still present Quality / character: Other (general weakness and not wanting to eat. 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 CT October 2023 had shown lymph nodes in abd/retroperitoneal unchanged. Chest mediastinal node 1 cm in September.), Admitted (with similar symptoms increasing few weeks, seen in ER a week ago and admitted for hyponatremia. Discharged net day with sodium up from 125 to 130.) Review of Systems Unable to obtain: Other (info also from daughter.) Constitutional: denies: Fever, Chills Throat: denies: Sore throat Cardiac: denies: Chest pain / pressure Respiratory: denies: Dyspnea, Cough GI: reports: Nausea, Vomiting. denies: Abdominal Pain, Diarrhea : denies: Dysuria Neurologic: reports: Generalized weakness, Confused. denies: Headache PD PAST MEDICAL HISTORY - Past Medical History Past Medical History: Yes Cardiovascular: Hypertension, Deep vein thrombosis, Pulmonary embolism Respiratory: None Neuro: None Endocrine/Autoimmune: None GI: GERD : None HEENT: Chronic vision loss, Glaucoma, Dental implants Psych: None Musculoskeletal: Chronic back pain Derm: None Other Past Medical History: CLL - Past Surgical History Past Surgical History: Yes 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, Other /[employer]: Hysterectomy HEENT: Cataracts, Detached retina repair - Present Medications Home Medications: Ambulatory Orders Medication Instructions Recorded Confirmed Calcitonin [Fortical] 1 sprays ROSMERY DAILY #1 each 12/29/23 Famotidine [Pepcid] 20 mg PO DAILY #20 tablet 12/29/23 Magnesium Oxide [Mag Ox] 400 mg PO DAILY #30 tablet 12/29/23 Ondansetron Odt [Zofran] 4 mg TL Q6H PRN #20 tablet 12/29/23 - Allergies Allergies/Adverse Reactions: Allergies Allergy/AdvReac Type Severity Reaction Status Date / Time codeine AdvReac Mild Nausea Verified 12/29/23 08:12 hydrocodone bitartrate * AdvReac Mild Nausea Verified 12/29/23 08:12 [From Vicodin] oxycodone HCl * AdvReac Mild Nausea Verified 12/29/23 08:12 [From Percocet] amlodipine AdvReac Unknown Verified 12/29/23 08:12 doxazosin AdvReac Unknown Verified 12/29/23 08:12 homatropine [From Hycodan] AdvReac Unknown Verified 12/29/23 08:12 hydrocodone [From Hycodan] AdvReac Unknown Verified 12/29/23 08:12 lisinopril AdvReac Unknown Verified 12/29/23 08:12 morphine AdvReac Nausea Verified 12/29/23 08:12 Penicillins AdvReac Nausea Verified 12/29/23 08:12 scopolamine AdvReac Unknown Verified 12/29/23 08:12 tramadol AdvReac Unknown Verified 12/29/23 08:12 beta basia AdvReac Unknown Uncoded 12/29/23 08:12 - Social History Does the pt smoke?: No Smoking Status: Never smoker Does the pt drink ETOH?: Yes Does the pt have substance abuse?: No - Immunizations Immunizations are current?: Yes - POLST Patient has POLST: No PD ED PE NORMAL - Vitals Vital signs reviewed: Yes - General General: Alert and oriented X 3, No acute distress, Well developed/nourished - Respiratory Respiratory: No respiratory distress, Clear bilaterally - Abdomen Abdomen: Soft - Derm Derm: Normal color, Warm and dry - Extremities Extremities: Normal ROM s pain, No calf tenderness / cord - Neuro Neuro: No motor deficit, No sensory deficit, Normal speech Results - Vitals Vitals: Vital Signs - 24 hr 12/29/23 12/29/23 12/29/23 08:04 10:10 12:00 Temperature 36.4 C L Heart Rate 83 77 74 Respiratory 20 25 H 14 Rate Blood Pressure 112/50 L 133/60 H 144/60 H O2 Saturation 95 95 99 12/29/23 12/29/23 12/29/23 14:00 16:00 18:00 Temperature Heart Rate 74 74 74 Respiratory 14 20 17 Rate Blood Pressure 118/54 L 118/68 O2 Saturation 100 99 100 Oxygen O2 Source Room air - Labs Labs: Laboratory Tests 12/29/23 12/29/23 12/29/23 09:21 09:21 09:21 WBC 7.5 RBC 3.43 L Hgb 8.7 L Hct 26.7 L MCV 77.8 L MCH 25.4 L MCHC 32.6 RDW 17.8 H Plt Count 208 MPV 9.6 Neut # (Auto) Not Reportable Lymph # (Auto) Not Reportable [place] # (Auto) Not Reportable Eos # (Auto) Not Reportable Baso # (Auto) Not Reportable Absolute Nucleated RBC Not Reportable Total Counted 100 Band Neuts % (Manual) 2 Reactive Lymphs % (Man) 4 Abnorm Lymph % (Manual) 0 Nucleated RBC % Not Reportable Neutrophils # (Manual) 4.8 Lymphocytes # (Manual) 2.1 Monocytes # (Manual) 0.6 Eosinophils # (Manual) 0.0 Basophils # (Manual) 0.0 Differential Comment MANUAL DIFFERENTIAL RBC Morph Micro Appear 3+ ANISOCYTOSIS ESR 59 H Sodium 128 L Potassium 4.4 Chloride 95 L Carbon Dioxide 27 Anion Gap 6.0 BUN 27 H Creatinine 0.9 Estimated GFR (MDRD) 60 L Glucose 96 Calcium 10.7 H Phosphorus 3.5 Magnesium 1.4 L Total Bilirubin 1.5 H AST 77 H ALT 56 Alkaline Phosphatase 1223 H Total Protein 5.7 L Albumin 2.9 L Globulin 2.8 Albumin/Globulin Ratio 1.0 Lipase < 10 L Vitamin B12 808 TSH 1.42 Urine Color Urine Clarity Urine pH Ur Specific [place] Urine Protein Urine Glucose (UA) Urine Ketones Urine Occult Blood Urine Nitrite Urine Bilirubin Urine Urobilinogen Ur Leukocyte Esterase Ur Microscopic Review Urine Culture Comments Nasal Adenovirus (PCR) Nasal B. parapertussis DNA (PCR) Nasal Coronavir 229E PCR Nasal Coronavir HKU1 PCR Nasal Coronavir NL63 PCR Nasal Coronavir OC43 PCR Nasal Enterovir/Rhinovir PCR Nasal Influenza B PCR Nasal Influenza A PCR Nasal Parainfluen 1 PCR Nasal Parainfluen 2 PCR Nasal Parainfluen 3 PCR Nasal Parainfluen 4 PCR Nasal RSV (PCR) Nasal B.pertussis DNA PCR Nasal C.pneumoniae (PCR) [place] Human Metapneumo PCR Nasal M.pneumoniae (PCR) Nasal SARS-CoV-2 (PCR) 12/29/23 12/29/23 09:21 11:21 WBC RBC Hgb Hct MCV MCH MCHC RDW Plt Count MPV Neut # (Auto) Lymph # (Auto) [place] # (Auto) Eos # (Auto) Baso # (Auto) Absolute Nucleated RBC Total Counted Band Neuts % (Manual) Reactive Lymphs % (Man) Abnorm Lymph % (Manual) Nucleated RBC % Neutrophils # (Manual) Lymphocytes # (Manual) Monocytes # (Manual) Eosinophils # (Manual) Basophils # (Manual) Differential Comment RBC Morph Micro Appear ESR Sodium Potassium Chloride Carbon Dioxide Anion Gap BUN Creatinine Estimated GFR (MDRD) Glucose Calcium Phosphorus Magnesium Total Bilirubin AST ALT Alkaline Phosphatase Total Protein Albumin Globulin Albumin/Globulin Ratio Lipase Vitamin B12 TSH Urine Color DARK YELLOW Urine Clarity CLEAR Urine pH 5.5 Ur Specific [place] >=1.030 H Urine Protein NEGATIVE Urine Glucose (UA) NEGATIVE Urine Ketones TRACE Urine Occult Blood NEGATIVE Urine Nitrite NEGATIVE Urine Bilirubin SMALL H Urine Urobilinogen 1 (NORMAL) Ur Leukocyte Esterase NEGATIVE Ur Microscopic Review NOT INDICATED Urine Culture Comments NOT INDICATED Nasal Adenovirus (PCR) NOT DETECTED Nasal B. parapertussis DNA (PCR) NOT DETECTED Nasal Coronavir 229E PCR NOT DETECTED Nasal Coronavir HKU1 PCR NOT DETECTED Nasal Coronavir NL63 PCR NOT DETECTED Nasal Coronavir OC43 PCR NOT DETECTED Nasal Enterovir/Rhinovir PCR NOT DETECTED Nasal Influenza B PCR NOT DETECTED Nasal Influenza A PCR NOT DETECTED Nasal Parainfluen 1 PCR NOT DETECTED Nasal Parainfluen 2 PCR NOT DETECTED Nasal Parainfluen 3 PCR NOT DETECTED Nasal Parainfluen 4 PCR NOT DETECTED Nasal RSV (PCR) NOT DETECTED Nasal B.pertussis DNA PCR NOT DETECTED Nasal C.pneumoniae (PCR) NOT DETECTED [place] Human Metapneumo PCR NOT DETECTED Nasal M.pneumoniae (PCR) NOT DETECTED Nasal SARS-CoV-2 (PCR) NOT DETECTED PD Medical Decision Making - ED course Complexity details: reviewed results (CT head dis not show any mets there nor other lesions. Consider outpt MRI. Chest/abd CTs showing multiple lung nodules c/w metastatic disease. mediastinal node increased from 1.0 to 1.4 cm. Abd/pelvic nodes similar in appearance. ), re-evaluated patient (Patient had a prolonged ER stay with getting imaging and results as well as to see the effect of hydration and attempted ambulation and oral intake. The patient was not meeting admission criteria necessarily with sodium of 128 and calcium not too high. ), considered differential, d/w patient, d/w family (daughter, who is caregiver) Reviewed Lab Results: sodium is lower again from 130 to 128. Calclium remaines in 10.7 range. Mag at 1.4 and anemia is some worsel. Elevated calcium and alk phos suggestive metastatic disease but not likely from CLL. With current symptoms fatigue and nausea and weakness, can recheck lytes. Also cnsider scans to eval for mets/tumors. ED course: The patient's daughter states the patient has had several weeks to a month or more of progressive general weakness less appetite and mild confusion. She was seen here recently and noted to have a moderately low sodium of 125 off from a baseline of normal 135. She was in the hospital just overnight and had improvement of her sodium to 130. Also noted was a calcium elevated approximately 10.7. The patient does have a history of CLL. They saw Dr. Lozano 2 days ago in the office and he states he was considering starting medication even though her CLL counts were low given the elevated should not and calcium and alk phos. His note does not actually state starting the medication. Dr. Lozano is changing location and will not be continuing with this patient. They have an appointment with Dr. Seals in 1-1/2 weeks and then a new oncologist starting a month from now. At this point though the patient's daughter states the patient is still having general weakness and poor appetite. Return back for reevaluation. Has vomiting the past couple of days with oral intake attempt. No diarrhea. The patient has an elevated calcium and also alk phos. She was having nausea and vomiting. To look for sites of tumor, I did do a CT of the chest and abdomen pelvis. She did have a CT of the head as well with and without co ntrast. No obvious tumor seen on the head. Previously noted lymph nodes in the abdomen pelvis were similarly described on CT today. Comparison was to October 2023. CT of the chest in comparison to September 2023 showed some increased size of the mediastinal node from 1 to now 1.4 cm. There was also noted multiple small nodules in the lung most likely consistent with metastatic disease not seen on prior imaging 3 months ago. Consideration would be inflammatory or infectious but this scenario would fit more for metastatic. Consideration could be for brain MRI to see if there is any brain metastases not visible on CT. The MRI is not available today on Saturday and I do not see that it is needed to urgently for transfer. Main issue is the patient's ability to take oral and ambulate. She was stovall bsequently given some ondansetron IV and famotidine IV and was then able to take fluids and small bites of food without any emesis. She was able to ambulate with a walker. As such I would not see admission criteria still. Departure - Departure Disposition: 01 Home, Self Care Clinical Impression: Generalized weakness, Lung nodules, Adenopathy, Serum calcium elevated, Hypomagnesemia, Hyponatremia Condition: Stable Record reviewed to determine appropriate education?: Yes Follow-Up: Belen Ryan MD [Primary Care Provider] - Prescriptions: Calcitonin [Fortical] 1 sprays ROSMERY DAILY #1 each Magnesium Oxide [Mag Ox] 400 mg PO DAILY #30 tablet Famotidine [Pepcid] 20 mg PO DAILY #20 tablet Ondansetron Odt [Zofran] 4 mg TL Q6H PRN #20 tablet PRN Reason: Nausea / Vomiting Comments: I would not use any diuretics or such as that can worsen the low sodium. Try to stay well-hydrated and some regular juices or sports drinks, electrolyte fluids. I do not believe we need to go with high sodium or salt tablet replacements per se. It seems that the ondansetron is improving the ability to swallow and not throw up. I prescribed some ondansetron/Zofran. Use this 4 times daily to help with oral intake. I would also suggest some famotidine acid reducing medicine daily as the stomach may be irritated causing some of the symptoms. Hopefully regular intake will keep her you hydrated and also improve your sodium level. Regarding the magnesium level, add a oral supplement daily. For the elevated calcium, we can try a hormone called calcitonin to see if that promotes calcium excretion better. This was a recommendation on a reference called up to date. The CT scans did show similar lymph nodes in the abdomen and around the back part of the peritoneum (retroperitoneal). There was some in the lung mediastinal area that has increased in sized. There is also now noted multiple pulmonary nodules that are suggestive of metastatic disease. Follow-up with your primary care and also oncology regarding further treatments. I sent prescriptions to your preferred pharmacy. Return as needed. Forms: PCP List Discharge Date/Time: 12/29/23 17:45
[2023-12-29 09:33] LABS: BASOPHILS % (AUTO) 0.1 %; EOSINOPHILS % (AUTO) 0.4 %; HCT - HEMATOCRIT 26.7 % (37.0-47.0); HGB - HEMOGLOBIN 8.7 g/dL (12.0-16.0); LYMPHOCYTES % (AUTO) 26.4 %; MEAN CORPUSCULAR HEMOGLOBIN 25.4 pg (27.0-31.0); MEAN CORPUSCULAR HGB CONC 32.6 g/dL (32.0-36.0); MEAN CORPUSCULAR VOLUME 77.8 fL (81.0-99.0); MEAN PLATELET VOLUME 9.6 fL (7.9-10.8); MONOCYTES % (AUTO) 13.5 %; NEUTROPHILS % (AUTO) 58.9 %; PLT - PLATELET COUNT 208 10^3/uL (130-450); RED BLOOD COUNT 3.43 10^6/uL (4.20-5.40); RED CELL DISTRIBUTION WIDTH 17.8 % (12.0-15.0); WHITE BLOOD COUNT 7.5 x10^3/uL (4.8-10.8)
[2023-12-29 09:46] LABS: ABNORMAL LYMPHS % (MANUAL) 0 %
[2023-12-29 09:54] LABS: ALBUMIN 2.9 g/dL (3.2-5.5); ALKALINE PHOSPHATASE 1223 IU/L (42-121); ALT ALANINE AMINOTRANSFERASE 56 IU/L (10-60); AST ASPARTATE AMINOTRANSFERASE 77 IU/L (10-42); BILIRUBIN,TOTAL 1.5 mg/dL (0.2-1.0); BUN - BLOOD UREA NITROGEN 27 mg/dL (6-20); CALCIUM 10.7 mg/dL (8.5-10.3); CARBON DIOXIDE - CO2 27 mmol/L (21-32); CHLORIDE 95 mmol/L (101-111); CREATININE 0.9 mg/dL (0.6-1.3); GFR - MDRD 60 (>89); GLUCOSE 96 mg/dL (74-104); MAGNESIUM 1.4 mg/dL (1.7-2.3); PHOSPHORUS 3.5 mg/dL (2.5-5.0); POTASSIUM 4.4 mmol/L (3.5-4.5); SODIUM 128 mmol/L (135-145); TOTAL PROTEIN 5.7 g/dL (6.4-8.9)
[2023-12-29 10:00] LABS: BAND NEUTROPHILS % (MANUAL) 2 %; DIFFERENTIAL COMMENT MANUAL DIFFERENTIAL; LYMPHOCYTES # (MANUAL) 2.1 10^3/uL (1.5-3.5); LYMPHOCYTES % (MANUAL) 24 %; MONOCYTES # (MANUAL) 0.6 10^3/uL (0.0-1.0); NEUTROPHILS # (MANUAL) 4.8 10^3/uL (1.5-6.6); RBC MORPHOLOGY (MULTIPLE) 3+ ANISOCYTOSIS (NORMAL); REACTIVE LYMPHS % (MANUAL) 4 %
[2023-12-29] MEDS: SODIUM CHLORIDE 0.9% 1,000 ML IV STA ×2 (10:03→15:17)
[2023-12-29 10:13] LABS: LIPASE < 10 U/L (11-82)
[2023-12-29] MEDS ORDERED: iohexoL-300 100 ML VIAL ONE ×2 (10:24→13:12)
[2023-12-29 10:40] LABS: THYROID STIMULATING HORMONE 1.42 uIU/mL (0.34-5.60)
[2023-12-29 11:29] LABS: BILIRUBIN,URINE SMALL (NEGATIVE); GLUCOSE, URINE (UA) NEGATIVE (NEGATIVE); KETONES,URINE (UA) TRACE mg/dL (NEGATIVE); LEUKOCYTE ESTERASE, URINE NEGATIVE (NEGATIVE); NITRITE,URINE NEGATIVE (NEGATIVE); OCCULT BLOOD,URINE NEGATIVE (NEGATIVE); PH,URINE 5.5 PH (5.0-7.5); PROTEIN,URINE NEGATIVE (NEGATIVE); UROBILINOGEN,URINE 1 (NORMAL) E.U./dL (NORMAL)
[2023-12-29 11:31] LABS: CLARITY,URINE CLEAR (CLEAR)
[2023-12-29 11:33] LABS: B. PARAPERTUSSIS- RESP PCR PAN NOT DETECTED; B. PERTUSSIS- RESP PCR PANEL NOT DETECTED; C. PNEUMONIAE- RESP PCR PANEL NOT DETECTED; CORONAVIRUS 229E-RESP PCR NOT DETECTED; CORONAVIRUS HKU1-RESP PCR NOT DETECTED; CORONAVIRUS NL63-RESP PCR NOT DETECTED; CORONAVIRUS OC43-RESP PCR NOT DETECTED; HUMAN METAPNEUMOVIRUS NOT DETECTED; INFLUENZA A- RESP PCR PANEL NOT DETECTED; INFLUENZA B - RESP PCR PANEL NOT DETECTED; M. PNEUMONIAE- RESP PCR PANEL NOT DETECTED; PARAINFLUENZA VIRUS 1 NOT DETECTED; PARAINFLUENZA VIRUS 2 NOT DETECTED; PARAINFLUENZA VIRUS 3 NOT DETECTED; PARAINFLUENZA VIRUS 4 NOT DETECTED; RHINOVIRUS/ENTEROVIRUS NOT DETECTED; RSV- RESP PCR PANEL NOT DETECTED; SARS-CoV-2 -RESP PCR PANEL NOT DETECTED
--- NOTE | 2023-12-29 11:34 | CT Report ---
PROCEDURE: Head W/WO INDICATIONS: weakness, confused the past 3 weeks TECHNIQUE: 4.5 mm thick angled axial sections acquired from the foramen magnum to the vertex before and after th e administration of intravenous contrast. For radiation dose reduction, the following was used: aut omated exposure control, adjustment of mA and/or kV according to patient size. CONTRAST: 100ml omni 300 COMPARISON: 03/08/2021 FINDINGS: Image quality: Excellent. CSF Spaces: Basal cisterns are patent. No extra-axial fluid collections. Ventricles are normal in size and shape. Brain: No midline shift. No intracranial bleeds or masses. No abnormal intracranial enhancement. Pool-white interface appears normal. Symmetric calcification of the basal ganglia can be seen, which is considered to be within normal limits for age. Skull and face: Calvarium and visualized facial bones appear intact, without suspicious lesions. Sinuses: Visualized sinuses and mastoids are clear. IMPRESSION: Unremarkable intracranial study, without a cause of the patient's presenting history identified. To the limits of CT, no findings of masses or abnormal enhancement can be seen. If there is strong clinical concern for intraparenchymal metastases, please consider a follow-up (wit hout and with contrast) for further evaluation, as it is much more sensitive. Reviewed by: Kenny Willis MD on 12/29/2023 10:32 AM HUONG Approved by: Kenny Willis MD on 12/29/2023 10:32 AM HUONG Station ID: [id number]
--- NOTE | 2023-12-29 14:04 | CT Report ---
PROCEDURE: Abdomen/Pelvis W INDICATIONS: weakness, elevated Ca. recent nodes CONTRAST: 100ml omni 300 TECHNIQUE: After the administration of intravenous contrast, a CT scan of the abdomen and pelvis was performed. Images were recorded and evaluated at appropriate window settings. Reformats: coronal and sagittal. F or radiation dose reduction, the following was used: automated exposure control, adjustment of mA and /or kV according to patient size. COMPARISON: CT abdomen/pelvis 11/13/2023. FINDINGS: Image quality: Diagnostic. Lower chest: Dictated separately. Liver: No solid mass. Gallbladder: No radiopaque stones or wall thickening. Biliary tree: No intrahepatic or extrahepatic dilation, accounting for age. Spleen: Spleen is enlarged, measuring up to 17 cm in anteroposterior and craniocaudal dimensions. Pre viously the spleen measured up to 15 cm. Pancreas: No pancreatic ductal dilation. Adrenals: No adrenal nodule. Kidneys and ureters: No hydronephrosis. No renal cystic lesion which requires follow up. No solid mas s. Contrast material is seen in the renal collecting system related to the CT performed earlier the . Subcentimeter hypoattenuating lesions in the kidneys appear stable and most likely represent cysts. Stomach, bowel and peritoneum: No gastric or small bowel dilation. No abnormal wall thickening. No pa thologic free fluid. Lymph nodes: Enlarged retroperitoneal lymph nodes are seen below the level of the renal veins. For ex ample a left para-aortic left that measures approximately 2.1 cm in short axis (84/2), not significan t changed compared to 11/13/2023. Vessels: No infrarenal aortic aneurysm. Patent portal vein. PELVIS Reproductive organs: Status post hysterectomy. Bladder: No abnormal wall thickening, accounting for underdistention. Pelvic lymph nodes: Left external iliac lymph node measures 2.8 cm in short axis (113/2), previously 3.2 cm.. Pelvic sidewall lymph node measures 1.8 cm in short axis (121/2), not significantly changed. Bones: No aggressive osseous abnormality. Other: Small fat-containing left inguinal hernia. IMPRESSION: 1.Mildly increased splenomegaly compared to the CT from 11/13/2023. Retroperitoneal and pelvic lymphad enopathy has not significantly changed when compared to the prior CT. 2.No acute abnormality identified in the abdomen or pelvis. Reviewed by: Navdeep Medley MD on 12/29/2023 2:02 PM PDT Approved by: Navdeep Medley MD on 12/29/2023 2:02 PM PDT Station ID: [id number]
--- NOTE | 2023-12-29 14:12 | CT Report ---
PROCEDURE: Chest W INDICATIONS: weakness, elevated Ca. CLL CONTRAST: 100ml omni 300 TECHNIQUE: After the administration of intravenous contrast, a CT scan of the chest was performed. Images were recorded and evaluated at appropriate window settings. Reformats: axial MIP of the chest, coronal and sagittal. For radiation dose reduction, the following was used: automated exposure control, adjustme nt of mA and/or kV according to patient size. COMPARISON: CT chest 10/04/2023. FINDINGS: Image quality: Diagnostic. Chest wall and lower neck: No thyroid nodule which requires sonographic follow up. No breast mass. No axillary or supraclavicular adenopathy by size. Lungs and pleura: No consolidation. No pleural effusions. No pneumothorax. Small bilateral pulmonary nodules are seen that have significantly increased in number when compared to the CT from 10/04/2023. The largest visualized nodule is at the left lung base and measures approxi mately 5 mm (235/12). Mediastinum: Heart size is normal. No pericardial effusion. No large vessel abnormality. AP window ly mph node measures 1.4 cm and the short axis diameter, previously 1.[address] from 10/04/2023. Left pe rihilar 1.0 cm lymph node (36/2) does not appear significant changed. Bones: No aggressive osseous abnormality. Upper Abdomen: Separately dictated. IMPRESSION: 1.Increased size of an AP window mediastinal lymph node, now measuring up to 1.4 cm in short axis. Ad ditional mediastinal lymph nodes are not significantly enlarged by CT size criteria. 2.Increased number of diffuse tiny in bilateral pulmonary nodules, suspicious for pulmonary metastati c disease versus an infectious or inflammatory process. Reviewed by: Navdeep Medley MD on 12/29/2023 2:11 PM PDT Approved by: Navdeep Medley MD on 12/29/2023 2:11 PM PDT Station ID: [id number]
[2023-12-29] MEDS: iohexoL-300 100 ML VIAL IVP ONE (15:01)
[2023-12-29 15:16] VITALS: O2SAT 100
[2023-12-29] MEDS: ONDANSETRON 4 MG/2 ML VIAL IVP STA (15:25)
[2023-12-29] MEDS: MAGNESIUM OXIDE 400 MG TABLET PO STA (16:16)
[2023-12-29] MEDS: FAMOTIDINE 20 MG/2 ML VIAL IVP STA (16:18)
[2023-12-29] MEDS: ONDANSETRON ODT 4 MG Prepack 2 TL PRN (17:34)
[2023-12-29 18:09] VITALS: BP 118/68
== END 2023-12-29 17:45 | disposition home or self-care (01) ==
LOC: ED 07:59
DX: C91.10 Chronic lymphocytic leukemia of B-cell type not having achieved remission (principal); R91.1 Solitary pulmonary nodule; R59.9 Enlarged lymph nodes, unspecified; R74.8 Abnormal levels of other serum enzymes; E83.42 Hypomagnesemia; E87.1 Hypo-osmolality and hyponatremia; I10 Essential (primary) hypertension; Z86.718 Personal history of other venous thrombosis and embolism; Z79.01 Long term (current) use of anticoagulants; Z86.711 Personal history of pulmonary embolism; Z97.2 Presence of dental prosthetic device (complete) (partial)
CPT/HCPCS: 36415; 70470; 71260; 74177; 80053; 81003; 82306; 82607; 83690; 83735; 84100; 84443; 85025; 85651; 87633; 96361; 96374; 96375; 99284; A9270; Q9967; 81001; 87086

== ENCOUNTER 2024-01-08 18:10 | Outpatient (CLI) | payer MEDICARE | END 2024-01-08 23:59 | disposition critical access hospital (66) | LOC: EMS 18:10 | DX: R41.0 Disorientation, unspecified (principal); R53.1 Weakness; M79.605 Pain in left leg; M79.604 Pain in right leg | CPT/HCPCS: A0425; A0429 ==

== ENCOUNTER 2024-01-08 18:20 | Inpatient (IN) | payer MEDICARE ==
--- NOTE | 2024-01-08 18:55 | ED Physician Documentation ---
History of Present Illness - Stated complaint Stated Complaint: WEAKNESS, CONFUSION - Chief complaint Chief Complaint: General - History obtained from History obtained from: Patient, Family, EMS - Additonal information Additional information: 83-year-old woman presents by ambulance accompanied by her daughter who gives most of the history today. She has a history of CLL diagnosed in 2013. She is being managed expectantly. About 6 weeks ago she was put on prednisone. Is not quite clear from the daughter's description what the prednisone was for. She was on it for a few weeks and has been off of the prednisone for another few weeks now. She was having some weakness and the daughter thought she was having steroid withdrawal despite having been off of the steroids for she anticipates probably 3 weeks between the cessation of the steroids and starting them again. She restarted steroids about 4 days ago currently at a dose of 20 mg a day. Over the last 24 hours has become significantly confused. And she is generally weak. She intermittently complains of bilateral leg pain. 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 HEENT: Cataracts, Detached retina repair - Present Medications Home Medications: Ambulatory Orders Medication Instructions Recorded Confirmed Famotidine [Pepcid] 20 mg PO DAILY #20 tablet 12/29/23 01/09/24 Magnesium Oxide [Mag Ox] 400 mg PO DAILY #30 tablet 12/29/23 01/09/24 Ondansetron Odt [Zofran] 4 mg TL Q6H PRN #20 tablet 12/29/23 01/09/24 predniSONE [Prednisone] See Rx Instructions .ROUTE .COMPLEX 01/09/24 01/09/24 - Allergies Allergies/Adverse Reactions: Allergies Allergy/AdvReac Type Severity Reaction Status Date / Time codeine AdvReac Mild Nausea Verified 12/29/23 08:12 hydrocodone bitartrate * AdvReac Mild Nausea Verified 12/29/23 08:12 [From Vicodin] oxycodone HCl * AdvReac Mild Nausea Verified 12/29/23 08:12 [From Percocet] amlodipine AdvReac Unknown Verified 12/29/23 08:12 doxazosin AdvReac Unknown Verified 12/29/23 08:12 homatropine [From Hycodan] AdvReac Unknown Verified 12/29/23 08:12 hydrocodone [From Hycodan] AdvReac Unknown Verified 12/29/23 08:12 lisinopril AdvReac Unknown Verified 12/29/23 08:12 morphine AdvReac Nausea Verified 12/29/23 08:12 Penicillins AdvReac Nausea Verified 12/29/23 08:12 scopolamine AdvReac Unknown Verified 12/29/23 08:12 tramadol AdvReac Unknown Verified 12/29/23 08:12 beta basia AdvReac Unknown Uncoded 12/29/23 08:12 - Social History Does the pt smoke?: No Smoking Status: Never smoker Does the pt drink ETOH?: Yes Does the pt have substance abuse?: No - Immunizations Immunizations are current?: Yes - POLST Patient has POLST: No PD ED PE NORMAL - Vitals Vital signs reviewed: Yes - General General: Other (She is somnolent but arouses easily. She is alert and oriented x 2. Cannot come up with the date or recent events. Can come up with the current president.) - HEENT HEENT: PERRL, EOMI - Neck Neck: Supple, no meningeal sign, No bony TTP - Cardiac Cardiac: RRR, No murmur - Respiratory Respiratory: No respiratory distress, Clear bilaterally - Abdomen Abdomen: Non tender - Extremities Extremities: No deformity, No tenderness to palpate, Normal ROM s pain, No edema, No calf tenderness / cord - Neuro Eye Opening: To Voice Motor: Obeys Commands Verbal: Confused GCS Score: 13 Results - Vitals Vitals: Vital Signs - 24 hr 01/08/24 18:24 Temperature 36.8 C Heart Rate 61 Respiratory 20 Rate Blood Pressure 125/59 L O2 Saturation 98 Oxygen O2 Source Room air - Labs Labs: Laboratory Tests 01/08/24 01/08/24 01/08/24 18:50 18:50 19:46 WBC 11.1 H RBC 3.65 L Hgb 9.0 L Hct 28.7 L MCV 78.6 L MCH 24.7 L MCHC 31.4 L RDW 18.8 H Plt Count 184 MPV 9.9 Neut # (Auto) 6.6 Lymph # (Auto) 3.6 H [place] # (Auto) 0.7 Eos # (Auto) 0.0 Baso # (Auto) 0.0 Absolute Nucleated RBC 0.00 Band Neuts % (Manual) Not Reportable Abnorm Lymph % (Manual) Not Reportable Nucleated RBC % 0.0 Neutrophils # (Manual) Not Reportable Lymphocytes # (Manual) Not Reportable Monocytes # (Manual) Not Reportable Eosinophils # (Manual) Not Reportable Basophils # (Manual) Not Reportable Differential Comment MANUAL=AUTO DIFF Platelet Estimate NORMAL (130-450,000) Platelet Morphology NORMAL APPEARANCE RBC Morph Micro Appear 1+ STOMATOCYTES Sodium 128 L Potassium 4.7 H Chloride 93 L Carbon Dioxide 30 Anion Gap 5.0 L BUN 29 H Creatinine 1.2 Estimated GFR (MDRD) 43 L Glucose 108 H Uric Acid 7.9 H Calcium 11.4 H Magnesium 2.0 Total Bilirubin 3.3 H AST 146 H ALT 111 H Alkaline Phosphatase 2168 H Total Protein 5.7 L Albumin 3.0 L Globulin 2.7 Albumin/Globulin Ratio 1.1 Urine Color Urine Clarity Urine pH Ur Specific [place] Urine Protein Urine Glucose (UA) Urine Ketones Urine Occult Blood Urine Nitrite Urine Bilirubin Urine Urobilinogen Ur Leukocyte Esterase Urine RBC Urine WBC Ur Epithelial Cells Ur Squamous Epith Cells Urine Crystals Amorphous Sediment Urine Bacteria Ur Microscopic Review Urine Culture Comments Nasal Adenovirus (PCR) NOT DETECTED Nasal B. parapertussis DNA (PCR) NOT DETECTED Nasal Coronavir 229E PCR NOT DETECTED Nasal Coronavir HKU1 PCR NOT DETECTED Nasal Coronavir NL63 PCR NOT DETECTED Nasal Coronavir OC43 PCR NOT DETECTED Nasal Enterovir/Rhinovir PCR NOT DETECTED Nasal Influenza B PCR NOT DETECTED Nasal Influenza A PCR NOT DETECTED Nasal Parainfluen 1 PCR NOT DETECTED Nasal Parainfluen 2 PCR NOT DETECTED Nasal Parainfluen 3 PCR NOT DETECTED Nasal Parainfluen 4 PCR NOT DETECTED Nasal RSV (PCR) NOT DETECTED Nasal B.pertussis DNA PCR NOT DETECTED Nasal C.pneumoniae (PCR) NOT DETECTED Mario Human Metapneumo PCR NOT DETECTED Nasal M.pneumoniae (PCR) NOT DETECTED Nasal SARS-CoV-2 (PCR) NOT DETECTED 01/08/24 20:36 WBC RBC Hgb Hct MCV MCH MCHC RDW Plt Count MPV Neut # (Auto) Lymph # (Auto) [place] # (Auto) Eos # (Auto) Baso # (Auto) Absolute Nucleated RBC Band Neuts % (Manual) Abnorm Lymph % (Manual) Nucleated RBC % Neutrophils # (Manual) Lymphocytes # (Manual) Monocytes # (Manual) Eosinophils # (Manual) Basophils # (Manual) Differential Comment Platelet Estimate Platelet Morphology RBC Morph Micro Appear Sodium Potassium Chloride Carbon Dioxide Anion Gap BUN Creatinine Estimated GFR (MDRD) Glucose Uric Acid Calcium Magnesium Total Bilirubin AST ALT Alkaline Phosphatase Total Protein Albumin Globulin Albumin/Globulin Ratio Urine Color YELLOW Urine Clarity CLEAR Urine pH 6.5 Ur Specific [place] 1.015 Urine Protein NEGATIVE Urine Glucose (UA) NEGATIVE Urine Ketones NEGATIVE Urine Occult Blood TRACE-LYSE Urine Nitrite NEGATIVE Urine Bilirubin SMALL H Urine Urobilinogen 1 (NORMAL) Ur Leukocyte Esterase TRACE H Urine RBC 0-5 Urine WBC 4-5 Ur Epithelial Cells RARE Transitional Ur Squamous Epith Cells RARE Squamous Urine Crystals 3-5 Calcium Oxalate Amorphous Sediment Rare Urine Bacteria Rare Ur Microscopic Review INDICATED Urine Culture Comments INDICATED Nasal Adenovirus (PCR) Nasal B. parapertussis DNA (PCR) Nasal Coronavir 229E PCR Nasal Coronavir HKU1 PCR Nasal Coronavir NL63 PCR Nasal Coronavir OC43 PCR Nasal Enterovir/Rhinovir PCR Nasal Influenza B PCR Nasal Influenza A PCR Nasal Parainfluen 1 PCR Nasal Parainfluen 2 PCR Nasal Parainfluen 3 PCR Nasal Parainfluen 4 PCR Nasal RSV (PCR) Nasal B.pertussis DNA PCR Nasal C.pneumoniae (PCR) Mario Human Metapneumo PCR Nasal M.pneumoniae (PCR) Nasal SARS-CoV-2 (PCR) - Rads (name of study) CT head and abdomen demonstrate age-related changes and other chronic findings such as splenomegaly and lymphadenopathy not significantly changed. Relevant Findings:: Final report received, EMP independent interpretation of test PD Medical Decision Making - ED course Complexity details: considered differential, d/w patient, d/w family, d/w lifestyle consultant (hospitalist) ED course: 83-year-old woman presents with weakness and confusion. She has the above history and the daughter thinks this may be related to steroids. Initial workup demonstrates mild leukocytosis, new from prior. Stable anemia. Her CMP is significantly abnormal and almost every respect with hyponatremia albeit basically in line with prior values. Her uric acid level is elevated, but I do not think she has tumor lysis syndrome with relatively stable creatinine. She has a worsening obstructive pattern of her liver enzymes. I discussed with with the her daughter. She had a similar pattern at the end of 2021 related to COVID. She had an MRCP that was done without obstruction and subsequently the liver enzymes normalized without specific intervention. Departure - Departure Disposition: ED Place in Observation Clinical Impression: Delirium, UTI (urinary tract infection), CLL (chronic lymphocytic leukemia) Condition: Stable
[2024-01-08 19:01] LABS: BASOPHILS % (AUTO) 0.1 %; HCT - HEMATOCRIT 28.7 % (37.0-47.0); LYMPHOCYTES # (AUTO) 3.6 10^3/uL (1.5-3.5); LYMPHOCYTES % (AUTO) 32.2 %; MEAN CORPUSCULAR HEMOGLOBIN 24.7 pg (27.0-31.0); MEAN CORPUSCULAR HGB CONC 31.4 g/dL (32.0-36.0); MEAN CORPUSCULAR VOLUME 78.6 fL (81.0-99.0); MEAN PLATELET VOLUME 9.9 fL (7.9-10.8); MONOCYTES # (AUTO) 0.7 10^3/uL (0.0-1.0); MONOCYTES % (AUTO) 6.7 %; NEUTROPHILS # (AUTO) 6.6 10^3/uL (1.5-6.6); NEUTROPHILS % (AUTO) 59.5 %; PLT - PLATELET COUNT 184 10^3/uL (130-450); RED BLOOD COUNT 3.65 10^6/uL (4.20-5.40); RED CELL DISTRIBUTION WIDTH 18.8 % (12.0-15.0); WHITE BLOOD COUNT 11.1 x10^3/uL (4.8-10.8)
[2024-01-08 19:19] LABS: URIC ACID 7.9 mg/dL (2.3-6.6)
[2024-01-08 19:22] LABS: ALBUMIN/GLOBULIN RATIO 1.1 (1.0-2.2); BILIRUBIN,TOTAL 3.3 mg/dL (0.2-1.0); CALCIUM 11.4 mg/dL (8.5-10.3); CREATININE 1.2 mg/dL (0.6-1.3); POTASSIUM 4.7 mmol/L (3.5-4.5); TOTAL PROTEIN 5.7 g/dL (6.4-8.9)
[2024-01-08] MEDS: SODIUM CHLORIDE 0.9% 1,000 ML IV STA (19:31)
[2024-01-08] MEDS ORDERED: iohexoL-300 100 ML VIAL ONE (19:33)
[2024-01-08 19:46] LABS: PLATELET ESTIMATE, MANUAL NORMAL (130-450,000) (NORMAL); PLATELET MORPHOLOGY NORMAL APPEARANCE (NORMAL)
[2024-01-08 19:47] LABS: DIFFERENTIAL COMMENT MANUAL=AUTO DIFF
[2024-01-08 20:45] LABS: BILIRUBIN,URINE SMALL (NEGATIVE); GLUCOSE, URINE (UA) NEGATIVE (NEGATIVE); KETONES,URINE (UA) NEGATIVE (NEGATIVE); LEUKOCYTE ESTERASE, URINE TRACE (NEGATIVE); NITRITE,URINE NEGATIVE (NEGATIVE); OCCULT BLOOD,URINE TRACE-LYSE (NEGATIVE); PH,URINE 6.5 PH (5.0-7.5); PROTEIN,URINE NEGATIVE (NEGATIVE); UROBILINOGEN,URINE 1 (NORMAL) E.U./dL (NORMAL)
[2024-01-08 20:54] LABS: B. PARAPERTUSSIS- RESP PCR PAN NOT DETECTED; B. PERTUSSIS- RESP PCR PANEL NOT DETECTED; C. PNEUMONIAE- RESP PCR PANEL NOT DETECTED; CORONAVIRUS 229E-RESP PCR NOT DETECTED; CORONAVIRUS HKU1-RESP PCR NOT DETECTED; CORONAVIRUS NL63-RESP PCR NOT DETECTED; CORONAVIRUS OC43-RESP PCR NOT DETECTED; HUMAN METAPNEUMOVIRUS NOT DETECTED; INFLUENZA A- RESP PCR PANEL NOT DETECTED; INFLUENZA B - RESP PCR PANEL NOT DETECTED; M. PNEUMONIAE- RESP PCR PANEL NOT DETECTED; PARAINFLUENZA VIRUS 1 NOT DETECTED; PARAINFLUENZA VIRUS 2 NOT DETECTED; PARAINFLUENZA VIRUS 3 NOT DETECTED; PARAINFLUENZA VIRUS 4 NOT DETECTED; RHINOVIRUS/ENTEROVIRUS NOT DETECTED; RSV- RESP PCR PANEL NOT DETECTED; SARS-CoV-2 -RESP PCR PANEL NOT DETECTED
[2024-01-08 21:01] LABS: CLARITY,URINE CLEAR (CLEAR)
[2024-01-08 21:02] LABS: AMORPHOUS SEDIMENT,UR Rare /LPF; BACTERIA,URINE Rare /HPF (None Seen); CRYSTALS,URINE 3-5 Calcium Oxalate /LPF; EPITHELIAL CELLS,UR RARE Transitional /HPF (<= Few); RBC,URINE 0-5 /HPF (0-5); SQUAMOUS EPITHELIAL CELL,UR RARE Squamous (<= Few)
[2024-01-08] MEDS: iohexoL-300 100 ML VIAL IVP ONE (21:49)
--- NOTE | 2024-01-08 22:35 | CT Report ---
PROCEDURE: Head WO INDICATIONS: ams TECHNIQUE: Noncontrast 4.5 mm thick angled axial sections acquired from the foramen magnum to the vertex. For r adiation dose reduction, the following was used: automated exposure control, adjustment of mA and/or kV according to patient size. COMPARISON: 03/09/2021, 12/29/2023 FINDINGS: Image quality: Diagnostic. CSF spaces: Basal cisterns are patent. No extra-axial fluid collections. Ventricles are normal in size and shape. Brain: No midline shift. No intracranial masses or hemorrhage. No mass effect. Pool-white matter i nterface is normal. There cerebral volume loss for age with resultant ventricular and sulcal prominen ce. There are periventricular and deep white matter chronic small vessel ischemic changes. Atheroscle rotic calcifications are noted in the intracranial segments of the bilateral internal carotid arterie s. Skull and face: Calvarium and visualized facial bones are intact, without suspicious lesions. Sinuses: Visualized sinuses and mastoids are clear. IMPRESSION: No acute intracranial pathology. Age-related senescent changes and sequela of chronic small vessel ischemic disease. Reviewed by: Dexter Da Silva MD on 01/08/2024 10:34 PM PDT Approved by: Dexter Da Silva MD on 01/08/2024 10:34 PM PDT Station ID: [id number]
--- NOTE | 2024-01-08 22:42 | CT Report ---
PROCEDURE: Abdomen/Pelvis W INDICATIONS: IV only, worsening obstructive liver enzyme patter CONTRAST: OMNI 300, 100mls TECHNIQUE: After the administration of intravenous contrast, a CT scan of the abdomen and pelvis was performed. Images were recorded and evaluated at appropriate window settings. Reformats: coronal and sagittal. F or radiation dose reduction, the following was used: automated exposure control, adjustment of mA and /or kV according to patient size. COMPARISON: 12/29/2023 FINDINGS: Image quality: Diagnostic. Lower chest: Bibasilar atelectasis. Liver: Hepatic steatosis. Gallbladder: No radiopaque stones or wall thickening. Biliary tree: No intrahepatic or extrahepatic dilation, accounting for age. Spleen: Splenomegaly redemonstrated measuring approximately 17 cm in maximum dimension. Heterogeneous splenic enhancement as before. Multiple small nodular hypodensities are visualized. Findings not sig nificantly changed accounting for slight differences in phase of contrast Pancreas: No pancreatic ductal dilation. Adrenals: No adrenal nodule. Kidneys and ureters: No hydronephrosis. No renal cystic lesion which requires follow up. No solid mas s. Redemonstration of multiple subcentimeter bilateral renal hypodensities likely representing cysts. Stomach, bowel and peritoneum: No gastric or small bowel dilation. No abnormal wall thickening. No pa thologic free fluid. Lymph nodes: Redemonstration of moderate retroperitoneal adenopathy extending along the left pelvic s idewall and left inguinal region. Vessels: No infrarenal aortic aneurysm. Patent portal vein. Atherosclerosis. PELVIS Reproductive organs: Status post hysterectomy Bladder: No abnormal wall thickening, accounting for underdistention. Pelvic lymph nodes: Redemonstration of multiple left pelvic sidewall adenopathy extending towards the left inguinal region. These are not significantly changed. Bones: No aggressive osseous abnormality. Other: No significant ventral or inguinal hernia. IMPRESSION: Redemonstration of splenomegaly not significantly changed compared to most recent CT dated 12/29/2023. Stable appearance of retroperitoneal and left pelvic lymphadenopathy. Otherwise, no acute abnormalities identified in the abdomen or pelvis. Other chronic findings as above Reviewed by: Dexter Da Silva MD on 01/08/2024 10:41 PM PDT Approved by: Dexter Da Silva MD on 01/08/2024 10:41 PM PDT Station ID: [id number]
[2024-01-08] MEDS: cefTRIAXone 1 GM VIAL IVP STA (23:07)
--- NOTE | 2024-01-08 23:35 | HISTORY & PHYSICAL EXAMINATION ---
Chief Complaint - Chief Complaint Chief Complaint: fatigue History of Present Illness - Admitted From Admitted From:: home - History Obtained From Records Reviewed: yes History obtained from: ER provider, chart review, patient's daughter Exam Limitations: telemedicine - History of Present Illness HPI Comment/Other: Ms Ferro is an 83 yo F with history of CLL diagnosed in 2013. Approximately 6 weeks ago she was started on steroids (per daughter suspect this was in attempt to improve her functional status, fatigue, poor appetite) which were subsequently tapered off approximately 3 weeks ago. She is now back on 20 mg prednisone daily, started 4 days ago for symptom management but has not been very helpful. She presents to the ER with complaints of confusion, generalized weakness. History is obtained from patient's daughter at bedside. Patient is feeling too tired to speak/participate at this time. Per her daughter she has been eating <200 calories per day, she attempts to encourage protein drinks etc but has been unsuccessful. Very poor appetite, very tired all the time. She cannot care for her at home, she is too weak. They have been meeting with their oncologist regularly, hoping to treat CLL but patient's counts have not been elevated. Also now with her poor functional status she is not a candidate for chemotherapy at this time. At last office visit recommendation was for MRI brain to evaluate for [employer] lymphoma, this has not been scheduled yet. History - Past Medical History Cardiovascular: reports: Hypertension, Deep vein thrombosis, Pulmonary embolism Respiratory: reports: None Neuro: reports: None Endocrine/Autoimmune: reports: None GI: reports: GERD : reports: None HEENT: reports: Chronic vision loss, Glaucoma, Dental implants Psych: reports: None Musculoskeletal: reports: Chronic back pain Derm: reports: None MRSA Hx?: No - Past Surgical History General: reports: Colonoscopy, Other /SURGERY AID: reports: Hysterectomy HEENT: reports: Cataracts, Detached retina repair - POLST Patient has POLST: No Meds/Allgy - Home Medications Home Medications: Ambulatory Orders Medication Instructions Recorded Confirmed Calcitonin [Fortical] 1 sprays ROSMERY DAILY #1 each 12/29/23 Famotidine [Pepcid] 20 mg PO DAILY #20 tablet 12/29/23 Magnesium Oxide [Mag Ox] 400 mg PO DAILY #30 tablet 12/29/23 Ondansetron Odt [Zofran] 4 mg TL Q6H PRN #20 tablet 12/29/23 - Allergies Allergies/Adverse Reactions: Allergies Allergy/AdvReac Type Severity Reaction Status Date / Time codeine AdvReac Mild Nausea Verified 12/29/23 08:12 hydrocodone bitartrate * AdvReac Mild Nausea Verified 12/29/23 08:12 [From Vicodin] oxycodone HCl * AdvReac Mild Nausea Verified 12/29/23 08:12 [From Percocet] amlodipine AdvReac Unknown Verified 12/29/23 08:12 doxazosin AdvReac Unknown Verified 12/29/23 08:12 homatropine [From Hycodan] AdvReac Unknown Verified 12/29/23 08:12 hydrocodone [From Hycodan] AdvReac Unknown Verified 12/29/23 08:12 lisinopril AdvReac Unknown Verified 12/29/23 08:12 morphine AdvReac Nausea Verified 12/29/23 08:12 Penicillins AdvReac Nausea Verified 12/29/23 08:12 scopolamine AdvReac Unknown Verified 12/29/23 08:12 tramadol AdvReac Unknown Verified 12/29/23 08:12 beta basia AdvReac Unknown Uncoded 12/29/23 08:12 Exam - Vital Signs Reviewed Vital Signs: Yes Vital Signs: Vital Signs x48h Temp Pulse Resp BP Pulse Ox 01/08/24 18:24 36.8 C 61 20 125/59 L 98 - Physical Exam General Appearance: positive: No acute distress, Other (fatigued, awakens briefly and goes back to sleep) Respiratory: positive: No respiratory distress Neurologic/Psychiatric: positive: Other (generalized weakness, does not answer orientation questions (too tired)) Conclusion/Plan - Lab Results Lab results reviewed: Yes Fish Bones: 01/08/24 18:50 01/08/24 18:50 - Diagnostic Imaging Results Diagnostic Imaging Results: positive: Final report reviewed - Other Other Results/Comments: Acute metabolic encephalopathy Generalized weakness Fatigue Possible UTI -UA is borderline, continue IV ceftriaxone for possible UTI -Unlikely patient's confusion is related to UTI, this has been ongoing over the past weeks, however rapidly progressing -Her oncologist recommends MRI brain (from last visit 12/30), ordered -Continue prednisone 20 mg daily, oncology consult in a.m. for further recommendations -PT/OT evaluations History of CLL Elevated LFTs, hypercalcemia -Corrected calcium 12.2 -Patient's oncologist is aware of lab abnormalities/LFTs, this is in setting of known hepatitis/CLL, she also has splenomegaly and lymphadenopathy which is unchanged from her prior imaging studies -Continue to monitor closely - per Dr Villalpando no intent to treat CLL at this time Poor appetite -Nutrition consult/assessment ordered -Gentle IV fluid hydration Full code DVT ppx: Lovenox sc
[2024-01-09] MEDS ORDERED: SODIUM CHLORIDE FLUSH 0.9% 10 ML SYRINGE IVP PRN (00:08)
[2024-01-09] MEDS: SODIUM CHLORIDE FLUSH 0.9% 10 ML SYRINGE IVP SCH (01:25)
[2024-01-09] MEDS: SODIUM CHLORIDE 0.9% 1,000 ML IV SCH (01:25)
[2024-01-09 05:47] LABS: EOSINOPHILS % (AUTO) 0.3 %; HCT - HEMATOCRIT 25.6 % (37.0-47.0); HGB - HEMOGLOBIN 8.2 g/dL (12.0-16.0); LYMPHOCYTES % (AUTO) 32.9 %; MEAN CORPUSCULAR HEMOGLOBIN 25.4 pg (27.0-31.0); MEAN CORPUSCULAR VOLUME 79.3 fL (81.0-99.0); MEAN PLATELET VOLUME 9.7 fL (7.9-10.8); MONOCYTES % (AUTO) 9.2 %; NEUTROPHILS % (AUTO) 56.5 %; PLT - PLATELET COUNT 130 10^3/uL (130-450); RED BLOOD COUNT 3.23 10^6/uL (4.20-5.40); RED CELL DISTRIBUTION WIDTH 19.2 % (12.0-15.0); WHITE BLOOD COUNT 7.3 x10^3/uL (4.8-10.8)
[2024-01-09 05:54] LABS: ABNORMAL LYMPHS % (MANUAL) 0 %; BAND NEUTROPHILS % (MANUAL) 0 %
[2024-01-09 05:57] LABS: CALCIUM 10.5 mg/dL (8.5-10.3); CREATININE 1.2 mg/dL (0.6-1.3); POTASSIUM 4.1 mmol/L (3.5-4.5)
[2024-01-09 06:25] LABS: LYMPHOCYTES # (MANUAL) 2.4 10^3/uL (1.5-3.5); LYMPHOCYTES % (MANUAL) 33 %; MONOCYTES # (MANUAL) 0.4 10^3/uL (0.0-1.0); NEUTROPHILS # (MANUAL) 4.5 10^3/uL (1.5-6.6)
[2024-01-09 06:26] LABS: DIFFERENTIAL COMMENT MANUAL DIFFERENTIAL; PLATELET ESTIMATE, MANUAL NORMAL (130-450,000) (NORMAL)
[2024-01-09] MEDS ORDERED: GADOTERATE MEGLUMINE 7.5 MMOL/15 ML VIAL ONE (07:31)
[2024-01-09] MEDS ORDERED: ONDANSETRON ODT 4 MG TABLET TL PRN (07:45)
[2024-01-09] MEDS: MAGNESIUM OXIDE 400 MG TABLET PO SCH (08:47)
[2024-01-09] MEDS: predniSONE 20 MG TABLET PO SCH (08:47)
[2024-01-09] MEDS: ENOXAPARIN 40 MG/0.4 ML SYRINGE SUBQ SCH (08:47)
[2024-01-09] MEDS: FAMOTIDINE 20 MG TABLET PO SCH (08:47)
[2024-01-09] MEDS: ONDANSETRON 4 MG/2 ML VIAL IVP PRN (08:55)
[2024-01-09] MEDS: ACETAMINOPHEN 325 MG TABLET PO PRN (09:02)
[2024-01-09] MEDS: GADOTERATE MEGLUMINE 7.5 MMOL/15 ML VIAL IVP ONE (09:12)
--- NOTE | 2024-01-09 09:29 | MRI Report ---
PROCEDURE: Brain W/WO INDICATIONS: confusion, weakness, hx CLL CONTRAST: CLARISCAN 13.4 ml TECHNIQUE: Noncontrast axial T1 spin echo, axial T2 fast spin echo, sagittal and axial FLAIR, coronal T2 fast sp in echo, axial gradient echo, axial diffusion and ADC through the brain. After the administration of contrast, axial and coronal T1 spin echo with fat saturation through the brain. COMPARISON: 03/30/2021. FINDINGS: Image quality: Diagnostic. Some patient motion artifact.. CSF spaces: Basal cisterns are patent. No extra-axial fluid collections. Ventricles are normal in size and shape. Brain: No midline shift. No intracranial bleeds or masses. No abnormal intracranial enhancement. There is cerebral volume loss for age. There is slightly progressive moderate to severe periventricu lar white matter chronic small vessel ischemic change. The brainstem appears normal. Diffusion-weig hted images demonstrate no acute ischemic insults. No chronic ischemic insults. Normal intravascula r flow voids are present. Skull and face: Calvarial marrow is normal in signal. Orbits appear normal. Sinuses: Sinuses and mastoids appear clear. IMPRESSION: 1. No acute intracranial process. No acute stroke, hemorrhage, or mass. 2. Slight progression of small vessel ischemic change. Reviewed by: Óscar Beckett MD on 01/09/2024 9:28 AM PDT Approved by: Óscar Beckett MD on 01/09/2024 9:28 AM PDT Station ID: [id number]
[2024-01-09] MEDS: cefTRIAXone 1 GM in SODIUM CHLORIDE 0.9% MINIBAG 100 ML IV SCH (10:10)
--- NOTE | 2024-01-09 12:19 | PHARMACY PROGRESS NOTE ---
- Best Possible Medication History Admit Date and Time: 01/09/24 0008 Processed by: Pharmacy Medications reviewed in ED?: No Medication History completed: Yes Patient Interview: Pt unable to participate Secondary Source(s): Prescription bottles, Other family member (Medicaiton reconciliation completed with patient's family members at bedside), Insurance records As the person ultimately responsible for medication therapy, providers are able to order a medication from an existing home medication list in [facility] via the "Reconcile Routine" prior to Confirmation of that medication by technical customer support specialist. Such practice is discouraged except when the physician, in their clinical judgment, deems that a medical need exists for a medication without regard to previous use.
--- NOTE | 2024-01-09 13:53 | PROVIDER PROGRESS NOTE ---
Subjective - Prog Note Date Prog Note Date: 01/09/24 Prog Note Time: 13:50 - Subjective Pt reports feeling: No change Subjective: The patient is sleeping but arousable. She is awake alert and oriented x 2. She is able to tell me that her brain is not working right and I asked her if she felt confused and she said she did. There are no family members at the bedside. A good review of systems cannot be obtained Current Medications - Current Medications Current Medications: Acetaminophen 650 mg p.o. every 4 hours as needed Ceftriaxone 1 g daily Lovenox 40 mg subcu daily Pepcid 20 mg daily Magnesium oxide 400 mg daily Zofran 4 mg IV or ODT every 6 hours as needed nausea and vomiting Prednisone 20 mg daily Objective - Vital Signs/Intake & Output Vital Signs: Vital Signs x48h Temp Pulse Resp BP Pulse Ox 01/09/24 08:25 36.6 C 82 18 128/57 L 92 Intake & Output: Intake & Output 01/06/24 01/07/24 01/08/24 01/09/24 23:59 23:59 23:59 23:59 Intake Total 1000 230 Output Total 600 Balance 1000 -370 - Objective General Appearance: positive: No acute distress, Other (She was sleeping but arousable. Somewhat lethargic and confused. Alert and oriented x 2) Eyes Bilateral: positive: Normal inspection ENT: positive: ENT inspection nml Neck: positive: Nml inspection Respiratory: positive: Chest non-tender, No respiratory distress, Breath sounds nml Cardiovascular: positive: Regular rate & rhythm, No murmur, No gallop. negative: Friction rub Abdomen: positive: Non-tender, No organomegaly, Nml bowel sounds, No distention Skin: positive: Color nml, No rash, Warm, Dry Extremities: positive: Non-tender, Full ROM Neurologic/Psychiatric: positive: Oriented x3, CN's nml (2-12) - Lab Results Fish Bones: 01/09/24 05:23 01/09/24 05:23 Other Labs: Lab Results x24hrs 01/09/24 01/09/24 01/08/24 Range/Units 05:23 05:23 20:36 WBC 7.3 (4.8-10.8) x10^3/uL RBC 3.23 L (4.20-5.40) 10^6/uL Hgb 8.2 L (12.0-16.0) g/dL Hct 25.6 L (37.0-47.0) % MCV 79.3 L (81.0-99.0) fL MCH 25.4 L (27.0-31.0) pg MCHC 32.0 (32.0-36.0) g/dL RDW 19.2 H (12.0-15.0) % Plt Count 130 (130-450) 10^3/uL MPV 9.7 (7.9-10.8) fL Neut # (Auto) Not Reportable (1.5-6.6) 10^3/uL Lymph # (Auto) Not Reportable (1.5-3.5) 10^3/uL Mcduff[place] # (Auto) Not Reportable (0.0-1.0) 10^3/uL Eos # (Auto) Not Reportable (0.0-0.7) 10^3/uL Baso # (Auto) Not Reportable (0.0-0.1) 10^3/uL Absolute Nucleated RBC Not Reportable x10^3/uL Total Counted 100 Band Neuts % (Manual) 0 Abnorm Lymph % (Manual) 0 Nucleated RBC % Not Reportable /100WBC Neutrophils # (Manual) 4.5 Lymphocytes # (Manual) 2.4 Monocytes # (Manual) 0.4 Eosinophils # (Manual) 0.0 Basophils # (Manual) 0.0 Differential Comment MANUAL DIFFERENTIAL Platelet Estimate NORMAL (130-450,000) (NORMAL) Platelet Morphology (NORMAL) RBC Morph Micro Appear 1+ POLYCHROMASIA (NORMAL) Sodium 130 L (135-145) mmol/L Potassium 4.1 (3.5-4.5) mmol/L Chloride 97 L (101-111) mmol/L Carbon Dioxide 30 (21-32) mmol/L Anion Gap 3.0 L (6-13) BUN 28 H (6-20) mg/dL Creatinine 1.2 (0.6-1.3) mg/dL Estimated GFR (MDRD) 43 L (>89) Glucose 78 (74-104) mg/dL Uric Acid (2.3-6.6) mg/dL Calcium 10.5 H (8.5-10.3) mg/dL Magnesium (1.7-2.3) mg/dL Total Bilirubin (0.2-1.0) mg/dL AST (10-42) IU/L ALT (10-60) IU/L Alkaline Phosphatase (42-121) IU/L Total Protein (6.4-8.9) g/dL Albumin (3.2-5.5) g/dL Globulin (2.1-4.2) g/dL Albumin/Globulin Ratio (1.0-2.2) Urine Color YELLOW Urine Clarity CLEAR (CLEAR) Urine pH 6.5 (5.0-7.5) PH Ur Specific Fonda 1.015 (1.002-1.030) Urine Protein NEGATIVE (NEGATIVE) mg/dL Urine Glucose (UA) NEGATIVE (NEGATIVE) mg/dL Urine Ketones NEGATIVE (NEGATIVE) mg/dL Urine Occult Blood TRACE-LYSE (NEGATIVE) Urine Nitrite NEGATIVE (NEGATIVE) Urine Bilirubin SMALL H (NEGATIVE) Urine Urobilinogen 1 (NORMAL) (NORMAL) E.U./dL Ur Leukocyte Esterase TRACE H (NEGATIVE) Urine RBC 0-5 (0-5) /HPF Urine WBC 4-5 (0-5) /HPF Ur Epithelial Cells RARE Transitional (<= Few) /HPF Ur Squamous Epith Cells RARE Squamous (<= Few) Urine Crystals 3-5 Calcium Oxalate /LPF Amorphous Sediment Rare /LPF Urine Bacteria Rare (None Seen) /HPF Ur Microscopic Review INDICATED Urine Culture Comments INDICATED Nasal Adenovirus (PCR) Nasal B. parapertussis DNA (PCR) Nasal Coronavir 229E PCR Nasal Coronavir HKU1 PCR Nasal Coronavir NL63 PCR Nasal Coronavir OC43 PCR Nasal Enterovir/Rhinovir PCR Nasal Influenza B PCR Nasal Influenza A PCR Nasal Parainfluen 1 PCR Nasal Parainfluen 2 PCR Nasal Parainfluen 3 PCR Nasal Parainfluen 4 PCR Nasal RSV (PCR) Nasal B.pertussis DNA PCR Nasal C.pneumoniae (PCR) Mario Human Metapneumo PCR Nasal M.pneumoniae (PCR) Nasal SARS-CoV-2 (PCR) 01/08/24 01/08/24 01/08/24 Range/Units 19:46 18:50 18:50 WBC 11.1 H (4.8-10.8) x10^3/uL RBC 3.65 L (4.20-5.40) 10^6/uL Hgb 9.0 L (12.0-16.0) g/dL Hct 28.7 L (37.0-47.0) % MCV 78.6 L (81.0-99.0) fL MCH 24.7 L (27.0-31.0) pg MCHC 31.4 L (32.0-36.0) g/dL RDW 18.8 H (12.0-15.0) % Plt Count 184 (130-450) 10^3/uL MPV 9.9 (7.9-10.8) fL Neut # (Auto) 6.6 (1.5-6.6) 10^3/uL Lymph # (Auto) 3.6 H (1.5-3.5) 10^3/uL [place]ff[place] # (Auto) 0.7 (0.0-1.0) 10^3/uL Eos # (Auto) 0.0 (0.0-0.7) 10^3/uL Baso # (Auto) 0.0 (0.0-0.1) 10^3/uL Absolute Nucleated RBC 0.00 x10^3/uL Total Counted Band Neuts % (Manual) Not Reportable Abnorm Lymph % (Manual) Not Reportable Nucleated RBC % 0.0 /100WBC Neutrophils # (Manual) Not Reportable Lymphocytes # (Manual) Not Reportable Monocytes # (Manual) Not Reportable Eosinophils # (Manual) Not Reportable Basophils # (Manual) Not Reportable Differential Comment MANUAL=AUTO DIFF Platelet Estimate NORMAL (130-450,000) (NORMAL) Platelet Morphology NORMAL APPEARANCE (NORMAL) RBC Morph Micro Appear 1+ STOMATOCYTES (NORMAL) Sodium 128 L (135-145) mmol/L Potassium 4.7 H (3.5-4.5) mmol/L Chloride 93 L (101-111) mmol/L Carbon Dioxide 30 (21-32) mmol/L Anion Gap 5.0 L (6-13) BUN 29 H (6-20) mg/dL Creatinine 1.2 (0.6-1.3) mg/dL Estimated GFR (MDRD) 43 L (>89) Glucose 108 H (74-104) mg/dL Uric Acid 7.9 H (2.3-6.6) mg/dL Calcium 11.4 H (8.5-10.3) mg/dL Magnesium 2.0 (1.7-2.3) mg/dL Total Bilirubin 3.3 H (0.2-1.0) mg/dL AST 146 H (10-42) IU/L ALT 111 H (10-60) IU/L Alkaline Phosphatase 2168 H (42-121) IU/L Total Protein 5.7 L (6.4-8.9) g/dL Albumin 3.0 L (3.2-5.5) g/dL Globulin 2.7 (2.1-4.2) g/dL Albumin/Globulin Ratio 1.1 (1.0-2.2) Urine Color Urine Clarity (CLEAR) Urine pH (5.0-7.5) PH Ur Specific Fonda (1.002-1.030) Urine Protein (NEGATIVE) mg/dL Urine Glucose (UA) (NEGATIVE) mg/dL Urine Ketones (NEGATIVE) mg/dL Urine Occult Blood (NEGATIVE) Urine Nitrite (NEGATIVE) Urine Bilirubin (NEGATIVE) Urine Urobilinogen (NORMAL) E.U./dL Ur Leukocyte Esterase (NEGATIVE) Urine RBC (0-5) /HPF Urine WBC (0-5) /HPF Ur Epithelial Cells (<= Few) /HPF Ur Squamous Epith Cells (<= Few) Urine Crystals /LPF Amorphous Sediment /LPF Urine Bacteria (None Seen) /HPF Ur Microscopic Review Urine Culture Comments Nasal Adenovirus (PCR) NOT DETECTED Nasal B. parapertussis DNA (PCR) NOT DETECTED Nasal Coronavir 229E PCR NOT DETECTED Nasal Coronavir HKU1 PCR NOT DETECTED Nasal Coronavir NL63 PCR NOT DETECTED Nasal Coronavir OC43 PCR NOT DETECTED Nasal Enterovir/Rhinovir PCR NOT DETECTED Nasal Influenza B PCR NOT DETECTED Nasal Influenza A PCR NOT DETECTED Nasal Parainfluen 1 PCR NOT DETECTED Nasal Parainfluen 2 PCR NOT DETECTED Nasal Parainfluen 3 PCR NOT DETECTED Nasal Parainfluen 4 PCR NOT DETECTED Nasal RSV (PCR) NOT DETECTED Nasal B.pertussis DNA PCR NOT DETECTED Nasal C.pneumoniae (PCR) NOT DETECTED Mario Human Metapneumo PCR NOT DETECTED Nasal M.pneumoniae (PCR) NOT DETECTED Nasal SARS-CoV-2 (PCR) NOT DETECTED Assessment/Plan - Problem List (1) Acute metabolic encephalopathy Impression: The patient has been acutely confused and according to her last oncology note she has had a rapid progression of mental decline. MRI of the brain revealed worsening cerebral atherosclerosis but otherwise nothing acute. She may have an underlying urinary tract infection and she is being treated with IV Rocephin. She also has multiple electrolyte abnormalities including mild hypercalcemia that may be contributing as well. Treatment will be outlined below. No family members were present to discuss but we will discuss goals of care with them tomorrow. (2) UTI (urinary tract infection) Impression: Continue IV Rocephin. This is the first full day of treatment. (3) CLL (chronic lymphocytic leukemia) Impression: CLL per her last oncology note he did not believe that her CLL was contributing to her rapid mental decline. He did recommend MRI but was concerned that her poor functional status would preclude her from having any sort of chemotherapy or treatment. She appears to be about an ECOG 3-4 (4) Hypercalcemia Impression: Hypercalcemia was noted in her oncology records. Calcium on admission was 11.4 and corrected for her albumin was 12.2. She is receiving IV fluids and this is improved. Her calcium today is 10.5, corrected for albumin 11.3. Certainly improving. (5) Anorexia Impression: Patient is not eating or drinking well. Will have the dietitian see her and encourage good p.o. intake. (6) Moderate protein-calorie malnutrition Impression: Will have the clinical dietitian formally diagnosed. Her BMI is 27 but she is lost quite a bit of weight and she is not eating or drinking enough to sustain herself. Continue to encourage good p.o. intake and supplements (7) Cerebral atherosclerosis Impression: The patient had an MRI of the brain which revealed no evidence of a stroke or evidence of malignancy. She was noted to have worsening microvascular ischemic changes. The patient may have some vascular dementia that is worsening. (8) Anemia Impression: Likely related to her underlying malignancy and chronic disease. She had a little bit of a drop in her hemoglobin likely due to hemodilution. She will have a CBC in the morning (9) Hyponatremia Impression: Her level is still low but somewhat improved with IV fluid hydration. She will have a chemistry panel in the morning (10) Hyperkalemia Impression: Likely due to dehydration. Resolved with IV fluids (11) Sarcopenia Impression: With subsequent ambulatory dysfunction. Will get physical therapy and Occupational Therapy to see the patient. I am going to have a discussion with the patient's family regarding goals of care. Unfortunately no one is present at the time of my visit. Disposition: Inpatient hospitalization remains necessary. The patient is still acutely confused. She is receiving IV fluids and were correcting her electrolytes. Goals of care need to be discussed with the family. I suspect she will be in the hospital for the next 24 to 48 hours. Time spent: 35 minutes
[2024-01-09 16:54] LABS: ALBUMIN 2.5 g/dL (3.2-5.5)
[2024-01-09 16:57] LABS: ABSOLUTE RETICS # AUTO 0.124 10^6/uL (0.020-0.110); RED BLOOD COUNT 3.3 10^6/uL (4.20-5.40); RETICULOCYTE COUNT % (AUTO) 3.76 % (0.5-2.3)
[2024-01-09 17:00] LABS: CRP - C-REACTIVE PROTEIN 9.2 mg/dL (<0.5)
[2024-01-09 17:03] LABS: BILIRUBIN,DIRECT 2.61 mg/dL (0.03-0.18); BILIRUBIN,TOTAL 3.9 mg/dL (0.2-1.0); TOTAL PROTEIN 4.9 g/dL (6.4-8.9)
[2024-01-09] MEDS: polyethylene glycoL 3350 17 GM PACKET PO SCH (22:43)
[2024-01-10 07:48] LABS: EOSINOPHILS % (AUTO) 0.4 %; HCT - HEMATOCRIT 25.4 % (37.0-47.0); LYMPHOCYTES % (AUTO) 27.8 %; MEAN CORPUSCULAR HEMOGLOBIN 25.2 pg (27.0-31.0); MEAN CORPUSCULAR HGB CONC 31.5 g/dL (32.0-36.0); MEAN CORPUSCULAR VOLUME 79.9 fL (81.0-99.0); NEUTROPHILS % (AUTO) 63.8 %; PLT - PLATELET COUNT 136 10^3/uL (130-450); RED BLOOD COUNT 3.18 10^6/uL (4.20-5.40); RED CELL DISTRIBUTION WIDTH 19.2 % (12.0-15.0); WHITE BLOOD COUNT 7.2 x10^3/uL (4.8-10.8)
[2024-01-10 08:01] LABS: ABNORMAL LYMPHS % (MANUAL) 0 %; BAND NEUTROPHILS % (MANUAL) 0 %
[2024-01-10 08:02] LABS: BILIRUBIN,DIRECT 2.15 mg/dL (0.03-0.18); MAGNESIUM 1.8 mg/dL (1.7-2.3); PHOSPHORUS 2.3 mg/dL (2.5-5.0)
[2024-01-10 08:12] LABS: ALBUMIN 2.5 g/dL (3.2-5.5); BILIRUBIN,TOTAL 3.4 mg/dL (0.2-1.0); CALCIUM 9.7 mg/dL (8.5-10.3); CREATININE 1.1 mg/dL (0.6-1.3); POTASSIUM 3.9 mmol/L (3.5-4.5); TOTAL PROTEIN 4.7 g/dL (6.4-8.9)
[2024-01-10 08:35] LABS: LYMPHOCYTES # (MANUAL) 0.9 10^3/uL (1.5-3.5); LYMPHOCYTES % (MANUAL) 13 %; METAMYELOCYTES % (MANUAL) 1 %; MONOCYTES # (MANUAL) 0.6 10^3/uL (0.0-1.0); NEUTROPHILS # (MANUAL) 5.5 10^3/uL (1.5-6.6)
[2024-01-10 08:37] LABS: DIFFERENTIAL COMMENT MANUAL DIFFERENTIAL; PLATELET ESTIMATE, MANUAL DECREASED (<130,000) (NORMAL); PLATELET MORPHOLOGY NORMAL APPEARANCE (NORMAL)
--- NOTE | 2024-01-10 15:07 | PROVIDER PROGRESS NOTE ---
Subjective - Prog Note Date Prog Note Date: 01/10/24 Prog Note Time: 15:05 - Subjective Pt reports feeling: No change Subjective: When I went to see the patient she was sitting up in the bed. She was awake and alert but not oriented. A good review of systems could not be obtained. I have spoken at length this afternoon with the patient's daughter. Please see my advance care planning note for further details Current Medications - Current Medications Current Medications: Ceftriaxone 1 g daily Lovenox 40 mg subcu daily Pepcid 20 mg daily Magnesium oxide 400 mg daily Zofran 4 mg IV or ODT every 6 hours as needed nausea and vomiting Prednisone 20 mg daily Objective - Vital Signs/Intake & Output Vital Signs: Vital Signs x48h Temp Pulse Resp BP Pulse Ox 01/10/24 07:57 36.7 C 73 18 128/49 L 95 Intake & Output: Intake & Output 01/07/24 01/08/24 01/09/24 01/10/24 23:59 23:59 23:59 23:59 Intake Total 1000 2533 1271.667 Output Total 1000 1000 Balance 1000 1533 271.667 - Objective General Appearance: positive: No acute distress, Other (The patient is awake alert and oriented x 2 but acutely confused regarding her situation.) Eyes Bilateral: positive: Normal inspection, Other (Sclerae are quite icteric) ENT: positive: ENT inspection nml Neck: positive: Nml inspection Respiratory: positive: Chest non-tender, No respiratory distress, Breath sounds nml Cardiovascular: positive: Regular rate & rhythm, No murmur, No gallop. negative: Friction rub Abdomen: positive: Non-tender, No organomegaly. negative: Guarding, Rebound Skin: positive: Other (Somewhat jaundiced) Extremities: positive: Non-tender, Full ROM Neurologic/Psychiatric: positive: Oriented x3, CN's nml (2-12) - Lab Results Fish Bones: 01/10/24 07:38 01/10/24 07:38 Other Labs: Lab Results x24hrs 01/10/24 01/10/24 01/09/24 Range/Units 07:38 07:38 16:35 WBC 7.2 (4.8-10.8) x10^3/uL RBC 3.18 L (4.20-5.40) 10^6/uL Hgb 8.0 L (12.0-16.0) g/dL Hct 25.4 L (37.0-47.0) % MCV 79.9 L (81.0-99.0) fL MCH 25.2 L (27.0-31.0) pg MCHC 31.5 L (32.0-36.0) g/dL RDW 19.2 H (12.0-15.0) % Plt Count 136 (130-450) 10^3/uL MPV 10.0 (7.9-10.8) fL Reticulocyte % (Auto) (0.5-2.3) % Neut # (Auto) Not Reportable Lymph # (Auto) Not Reportable [place] # (Auto) Not Reportable Eos # (Auto) Not Reportable Baso # (Auto) Not Reportable Absolute Nucleated RBC Not Reportable Total Counted 100 Band Neuts % (Manual) 0 (0 - 10) % Abnorm Lymph % (Manual) 0 % Metamyelocytes % 1 H ( - 0) % Nucleated RBC % Not Reportable Neutrophils # (Manual) 5.5 (1.5-6.6) 10^3/uL Lymphocytes # (Manual) 0.9 L (1.5-3.5) 10^3/uL Monocytes # (Manual) 0.6 (0.0-1.0) 10^3/uL Eosinophils # (Manual) 0.0 (0-0.7) 10^3/uL Basophils # (Manual) 0.0 (0-0.1) 10^3/uL Differential Comment MANUAL DIFFERENTIAL Platelet Estimate DECREASED (<130,000) (NORMAL) Platelet Morphology NORMAL APPEARANCE (NORMAL) RBC Morph Micro Appear 1+ STOMATOCYTES (NORMAL) ESR (0-30) mm/Hr Absolute Retic (0.020-0.110) 10^6/uL Sodium 130 L (135-145) mmol/L Potassium 3.9 (3.5-4.5) mmol/L Chloride 99 L (101-111) mmol/L Carbon Dioxide 27 (21-32) mmol/L Anion Gap 4.0 L (6-13) BUN 24 H (6-20) mg/dL Creatinine 1.1 (0.6-1.3) mg/dL Estimated GFR (MDRD) 48 L (>89) Glucose 83 (74-104) mg/dL Calcium 9.7 (8.5-10.3) mg/dL Phosphorus 2.3 L (2.5-5.0) mg/dL Magnesium 1.8 (1.7-2.3) mg/dL Total Bilirubin 3.4 H (0.2-1.0) mg/dL Direct Bilirubin 2.15 H (0.03-0.18) mg/dL GGT (9-64) IU/L AST 202 H (10-42) IU/L ALT 117 H (10-60) IU/L Alkaline Phosphatase 2048 H (42-121) IU/L Ammonia (18-72) umol/L Lactate Dehydrogenase 185 (140-271) IU/L C-Reactive Protein (<0.5) mg/dL Total Protein 4.7 L (6.4-8.9) g/dL Albumin 2.5 L (3.2-5.5) g/dL Globulin 2.2 (2.1-4.2) g/dL 01/09/24 01/09/24 01/09/24 Range/Units 16:35 16:35 16:35 WBC (4.8-10.8) x10^3/uL RBC 3.30 L (4.20-5.40) 10^6/uL Hgb (12.0-16.0) g/dL Hct (37.0-47.0) % MCV (81.0-99.0) fL MCH (27.0-31.0) pg MCHC (32.0-36.0) g/dL RDW (12.0-15.0) % Plt Count (130-450) 10^3/uL MPV (7.9-10.8) fL Reticulocyte % (Auto) 3.76 H (0.5-2.3) % Neut # (Auto) Lymph # (Auto) [place] # (Auto) Eos # (Auto) Baso # (Auto) Absolute Nucleated RBC Total Counted Band Neuts % (Manual) (0 - 10) % Abnorm Lymph % (Manual) % Metamyelocytes % ( - 0) % Nucleated RBC % Neutrophils # (Manual) (1.5-6.6) 10^3/uL Lymphocytes # (Manual) (1.5-3.5) 10^3/uL Monocytes # (Manual) (0.0-1.0) 10^3/uL Eosinophils # (Manual) (0-0.7) 10^3/uL Basophils # (Manual) (0-0.1) 10^3/uL Differential Comment Platelet Estimate (NORMAL) Platelet Morphology (NORMAL) RBC Morph Micro Appear (NORMAL) ESR (0-30) mm/Hr Absolute Retic 0.124 H (0.020-0.110) 10^6/uL Sodium (135-145) mmol/L Potassium (3.5-4.5) mmol/L Chloride (101-111) mmol/L Carbon Dioxide (21-32) mmol/L Anion Gap (6-13) BUN (6-20) mg/dL Creatinine (0.6-1.3) mg/dL Estimated GFR (MDRD) (>89) Glucose (74-104) mg/dL Calcium (8.5-10.3) mg/dL Phosphorus (2.5-5.0) mg/dL Magnesium (1.7-2.3) mg/dL Total Bilirubin 3.9 H (0.2-1.0) mg/dL Direct Bilirubin 2.61 H (0.03-0.18) mg/dL GGT 572 H (9-64) IU/L AST 200 H (10-42) IU/L ALT 111 H (10-60) IU/L Alkaline Phosphatase 2068 H (42-121) IU/L Ammonia 21.1 (18-72) umol/L Lactate Dehydrogenase (140-271) IU/L C-Reactive Protein 9.2 H (<0.5) mg/dL Total Protein 4.9 L (6.4-8.9) g/dL Albumin 2.5 L (3.2-5.5) g/dL Globulin 2.4 (2.1-4.2) g/dL 01/09/24 Range/Units 16:35 WBC (4.8-10.8) x10^3/uL RBC (4.20-5.40) 10^6/uL Hgb (12.0-16.0) g/dL Hct (37.0-47.0) % MCV (81.0-99.0) fL MCH (27.0-31.0) pg MCHC (32.0-36.0) g/dL RDW (12.0-15.0) % Plt Count (130-450) 10^3/uL MPV (7.9-10.8) fL Reticulocyte % (Auto) (0.5-2.3) % Neut # (Auto) Lymph # (Auto) [place] # (Auto) Eos # (Auto) Baso # (Auto) Absolute Nucleated RBC Total Counted Band Neuts % (Manual) (0 - 10) % Abnorm Lymph % (Manual) % Metamyelocytes % ( - 0) % Nucleated RBC % Neutrophils # (Manual) (1.5-6.6) 10^3/uL Lymphocytes # (Manual) (1.5-3.5) 10^3/uL Monocytes # (Manual) (0.0-1.0) 10^3/uL Eosinophils # (Manual) (0-0.7) 10^3/uL Basophils # (Manual) (0-0.1) 10^3/uL Differential Comment Platelet Estimate (NORMAL) Platelet Morphology (NORMAL) RBC Morph Micro Appear (NORMAL) ESR 47 H (0-30) mm/Hr Absolute Retic (0.020-0.110) 10^6/uL Sodium (135-145) mmol/L Potassium (3.5-4.5) mmol/L Chloride (101-111) mmol/L Carbon Dioxide (21-32) mmol/L Anion Gap (6-13) BUN (6-20) mg/dL Creatinine (0.6-1.3) mg/dL Estimated GFR (MDRD) (>89) Glucose (74-104) mg/dL Calcium (8.5-10.3) mg/dL Phosphorus (2.5-5.0) mg/dL Magnesium (1.7-2.3) mg/dL Total Bilirubin (0.2-1.0) mg/dL Direct Bilirubin (0.03-0.18) mg/dL GGT (9-64) IU/L AST (10-42) IU/L ALT (10-60) IU/L Alkaline Phosphatase (42-121) IU/L Ammonia (18-72) umol/L Lactate Dehydrogenase (140-271) IU/L C-Reactive Protein (<0.5) mg/dL Total Protein (6.4-8.9) g/dL Albumin (3.2-5.5) g/dL Globulin (2.1-4.2) g/dL ABX Reporting Has patient been on IV antibiotics over the past 48 hours?: Yes Assessment/Plan - Problem List (1) Acute metabolic encephalopathy Impression: Unfortunately not improving. Likely due to worsening liver failure, possible UTI and electrolyte abnormalities. Therapy will be outlined below (2) UTI (urinary tract infection) Impression: She has received 2 doses of IV Rocephin. She will receive 1 more dose tomorrow and then we will stop (3) CLL (chronic lymphocytic leukemia) Impression: . Please see my advance care planning note for discussion with the patient's daughter I am worried that she is transforming. I have a call out to her former oncologist for guidance. She has worsening liver dysfunction (4) Elevated liver function tests Impression: The patient's liver function test have continued to significantly worsen. This is likely due to transformation of her CLL and infiltration of her liver. Please see my advance care planning note for discussion with the patient's daughter. I am awaiting a call from Dr. Lozano her former oncologist for recommendations. Continue to monitor (5) Hypercalcemia Impression: This is improving with IV fluid hydration (6) Anorexia Impression: The patient is not eating well. Continue to work with the clinical dietitian (7) Severe protein-calorie malnutrition Impression: This was previously documented as moderate protein calorie malnutrition. However she has been seen by the clinical dietitian. She has nutritional intake of less than 50% of recommended intake for the greater than 2 weeks. She has lost 6 kg in the past 2 months with an 8% decrease in body weight. She has muscle wasting and fat loss throughout all 4 extremities. She is not eating or drinking well. (8) Cerebral atherosclerosis Impression: Noted on MRI of the brain. Likely with some early vascular dementia (9) Anemia Impression: Continue to monitor. She has a microcytic anemia. She also has CLL. (10) Hyponatremia Impression: Her sodium level is 130. It has not really changed much since admission. This is likely chronic due to her acute illness (11) Hyperkalemia Impression: Likely due to dehydration. Resolved (12) Sarcopenia Impression: The patient has sarcopenia with ambulatory dysfunction. She is able to ambulate a bit with physical therapy. Family is making decisions at this point. It is unclear whether she will pursue rehab versus a transition to hospice. It largely depends on what Dr. Lozano has to say Disposition: Inpatient hospitalization remains necessary. The patient is acutely confused. It appears that she is developing worsening liver failure. Goals of care are being discussed with the family and we are awaiting input from her former oncologist. We need to formulate an disposition plan and it largely depends on how were going to proceed going forward. Hopefully will have been ironed out in the next 24 hours. Time spent: 35 minutes
--- NOTE | 2024-01-10 15:22 | ADVANCE CARE PLANNING NOTE ---
Advance Care Planning - Planning Encounter Date: 01/10/24 Time: 13:00 Purpose: To discuss goals of care Parties in Attendance: The patient's daughter Cinthya Dominguez [phone]. She is her formal healthcare power of health care attorney. She is accompanied by her Decisional Capacity of the Patient: The patient is acutely confused and unable to make decisions at this time - Encounter Subjective/Patient's Story: The patient is an 83-year-old female who has been followed by Dr. Lozano for CLL. She has had a significant decline in her functional status over the past 6 mo nths. She has had significant worsening over the past month and has become acutely confused. She is not ambulating well. She is not eating and she has had significant worsening of her liver function tests. She has previously had an MRCP which revealed shotty lymphadenopathy and splenomegaly likely in the setting of underlying CLL. She was screened for hepatitis and autoimmune screening which was unrevealing at that time. During her last visit an MRI of the brain was recommended due to her rapidly declining cognitive status and loss of appetite. A bone marrow biopsy was considered but they did not believe that this was causing her decline. During her last oncology visit there was no indication to treat her CLL and they felt that her poor performance status would not occur not an ideal candidate for any anti-CLL treatments. She was brought to the emergency room for worsening confusion, poor appetite and worsening weakness. Her daughter reports that she is eating less than 200 calories a day Objective/Medical Story: The the patient was admitted to the hospital. She is being treated for a possible UTI. Electrolytes have been repleted. She has been receiving IV fluids. In spite of that she has no meaningful improvement. She has markedly elevated liver function tests that have increased dramatically in the past 3 weeks. Efforts are underway to get in touch with her oncologist for guidance Goals of Care: I have had a long discussion with the patient's daughter today. She has remained extremely hopeful that there is something that we could treat and we can get her mother back to her prior level of functioning and improve her mental status. I have told her that I am reaching out to her mother's oncologist for guidance but I am concerned that she has had transformation of her CLL and that it is infiltrating her liver and spleen. Her liver is failing and getting worse on a daily basis. The patient's daughter is having a very difficult time deciding what to do going forward. The patient does not have Medicaid and cannot go to a skilled facility. She initially was leaning towards rehab at discharge however if the patient's liver is failing and there is no treatment options offered by the oncology team then the patient's life expectancy is likely quite short. We have discussed a possible transition to hospice. We discussed the daughter possibly taking her home with to [place] and getting hospice set up at their house to make it a little bit easier for them. She is a little nervous about this but is not ruling out this possibility. She does not have the money to get full- time help for her mother nor pay for her care in a nursing facility at this time. We discussed hospice at length and she is leaning towards this however would like to get some input from the oncologist before making that decision. She also states that 2 weeks ago she became her mother's healthcare power of health care attorney. She was hoping that her mother's mentation would improve and she could participate in deciding what to do about her CODE STATUS. I have told her that likely this decision will need to be her and that with worsening liver failure her life expectancy could be short. She says that she is going to think about this overnight and we will follow-up tomorrow hopefully after we have talked to her oncologist. Plan: The plan at this point is to talk to Dr. Lozano and get his recommendations. Also to follow-up with the patient's daughter tomorrow in regards to her CODE STATUS. I have discussed a possible transition to hospice and the patient's daughter is considering taking her home to her house in [place]. She is considering this and is going to discuss this with her overnight Code Status: Attempt Resuscitation (However the patient is going to discuss this with her zaid and we will follow-up tomorrow.) Time spent on advance care plannin minutes
[2024-01-10] MEDS: IBUPROFEN 800 MG TABLET PO PRN (16:07)
[2024-01-10] MEDS: SENNA 8.6 MG TABLET PO SCH (16:58)
[2024-01-10] MEDS: LIDOCAINE PATCH 5% TOP PRN (20:54)
[2024-01-10] MEDS: BACLOFEN 10 MG TABLET PO PRN (20:55)
[2024-01-11 06:32] LABS: EOSINOPHILS % (AUTO) 0.4 %; HCT - HEMATOCRIT 25.2 % (37.0-47.0); HGB - HEMOGLOBIN 7.8 g/dL (12.0-16.0); LYMPHOCYTES % (AUTO) 33.9 %; MEAN CORPUSCULAR HEMOGLOBIN 25.2 pg (27.0-31.0); MEAN CORPUSCULAR VOLUME 81.3 fL (81.0-99.0); MEAN PLATELET VOLUME 10.2 fL (7.9-10.8); MONOCYTES % (AUTO) 7.2 %; NEUTROPHILS % (AUTO) 56.4 %; PLT - PLATELET COUNT 110 10^3/uL (130-450); RED CELL DISTRIBUTION WIDTH 19.6 % (12.0-15.0); WHITE BLOOD COUNT 6.8 x10^3/uL (4.8-10.8)
[2024-01-11 06:44] LABS: BILIRUBIN,DIRECT 2.13 mg/dL (0.03-0.18); MAGNESIUM 1.8 mg/dL (1.7-2.3); PHOSPHORUS 2.9 mg/dL (2.5-5.0); SLIDE REVIEW? Indicated
[2024-01-11 06:45] LABS: ABNORMAL LYMPHS % (MANUAL) 0 %
[2024-01-11 06:54] LABS: ALBUMIN 2.3 g/dL (3.2-5.5); BILIRUBIN,TOTAL 3.3 mg/dL (0.2-1.0); CALCIUM 9.4 mg/dL (8.5-10.3); CREATININE 0.9 mg/dL (0.6-1.3); POTASSIUM 3.8 mmol/L (3.5-4.5); TOTAL PROTEIN 4.4 g/dL (6.4-8.9)
[2024-01-11 07:22] LABS: BAND NEUTROPHILS % (MANUAL) 1 %; LYMPHOCYTES # (MANUAL) 2.2 10^3/uL (1.5-3.5); LYMPHOCYTES % (MANUAL) 33 %; MONOCYTES # (MANUAL) 0.1 10^3/uL (0.0-1.0); NEUTROPHILS # (MANUAL) 4.5 10^3/uL (1.5-6.6)
[2024-01-11 07:25] LABS: PLATELET ESTIMATE, MANUAL DECREASED (<130,000) (NORMAL); PLATELET MORPHOLOGY NORMAL APPEARANCE (NORMAL); WBC MORPHOLOGY (MULTIPLE) 1+ TOXIC G (NORMAL)
[2024-01-11 08:44] LABS: INR 1.4 (0.8-1.2); PT - PROTHROMBIN TIME 15.2 secs (9.9-12.6)
--- NOTE | 2024-01-11 11:15 | PROVIDER PROGRESS NOTE ---
Subjective - Prog Note Date Prog Note Date: 01/11/24 Prog Note Time: 11:15 - Subjective Pt reports feeling: Improved Subjective: The patient is sitting up in the bed this morning. She is awake alert and oriented x 3 this morning. Liver function test are still markedly elevated but have improved a bit. She tells me that she is aware that she has been confused and feels like her mind is less foggy. She has had no fever or chills overnight. No chest pain, shortness of breath or cough. No nausea vomiting or diarrhea. No urinary complaints. Nursing staff states that she is only eating a little bit at this point. Certainly not enough to sustain herself at this point. Current Medications - Current Medications Current Medications: Ceftriaxone 1 g daily Lovenox 40 mg subcu daily Pepcid 20 mg daily Magnesium oxide 400 mg daily Zofran 4 mg IV or ODT every 6 hours as needed nausea and vomiting Prednisone 20 mg daily Objective - Vital Signs/Intake & Output Reviewed Vital Signs: Yes Vital Signs: Vital Signs x48h Temp Pulse Resp BP Pulse Ox 01/11/24 07:42 36.7 C 78 18 124/66 96 Intake & Output: Intake & Output 01/08/24 01/09/24 01/10/24 01/11/24 23:59 23:59 23:59 23:59 Intake Total 1000 2533 2551.667 1460.000 Output Total 1000 1600 600 Balance 1000 1533 951.667 860.000 - Objective General Appearance: positive: No acute distress, Other (She has mild bitemporal muscle wasting bilaterally) Eyes Bilateral: positive: Normal inspection ENT: positive: ENT inspection nml Neck: positive: Nml inspection Respiratory: positive: Chest non-tender, No respiratory distress, Breath sounds nml Cardiovascular: positive: Regular rate & rhythm, No murmur, No gallop. negative: Friction rub Abdomen: positive: Non-tender, Nml bowel sounds Skin: positive: No rash, Warm, Dry. negative: Color nml (She is jaundiced) Extremities: positive: Non-tender, Full ROM Neurologic/Psychiatric: positive: Oriented x3, CN's nml (2-12) - Lab Results Fish Bones: 01/11/24 06:09 01/11/24 06:09 Other Labs: Lab Results x24hrs 07/01/11/24 01/11/24 Range/Units 08:26 06:09 06:09 WBC 6.8 (4.8-10.8) x10^3/uL RBC 3.10 L (4.20-5.40) 10^6/uL Hgb 7.8 L (12.0-16.0) g/dL Hct 25.2 L (37.0-47.0) % MCV 81.3 (81.0-99.0) fL MCH 25.2 L (27.0-31.0) pg MCHC 31.0 L (32.0-36.0) g/dL RDW 19.6 H (12.0-15.0) % Plt Count 110 L (130-450) 10^3/uL MPV 10.2 (7.9-10.8) fL Neut # (Auto) Not Reportable Lymph # (Auto) Not Reportable [place] # (Auto) Not Reportable Eos # (Auto) Not Reportable Baso # (Auto) Not Reportable Absolute Nucleated RBC Not Reportable Total Counted 100 Band Neuts % (Manual) 1 (0 - 10) % Abnorm Lymph % (Manual) 0 % Nucleated RBC % Not Reportable Neutrophils # (Manual) 4.5 (1.5-6.6) 10^3/uL Lymphocytes # (Manual) 2.2 (1.5-3.5) 10^3/uL Monocytes # (Manual) 0.1 (0.0-1.0) 10^3/uL Eosinophils # (Manual) 0.0 (0-0.7) 10^3/uL Basophils # (Manual) 0.0 (0-0.1) 10^3/uL Manual Slide Review Indicated WBC Morphology 1+ TOXIC G (NORMAL) Platelet Estimate DECREASED (<130,000) (NORMAL) Platelet Morphology NORMAL APPEARANCE (NORMAL) RBC Morph Micro Appear 1+ STOMATOCYTES (NORMAL) PT 15.2 H (9.9-12.6) secs INR 1.4 H (0.8-1.2) Sodium 133 L (135-145) mmol/L Potassium 3.8 (3.5-4.5) mmol/L Chloride 103 (101-111) mmol/L Carbon Dioxide 26 (21-32) mmol/L Anion Gap 4.0 L (6-13) BUN 22 H (6-20) mg/dL Creatinine 0.9 (0.6-1.3) mg/dL Estimated GFR (MDRD) 60 L (>89) Glucose 84 (74-104) mg/dL Calcium 9.4 (8.5-10.3) mg/dL Phosphorus 2.9 (2.5-5.0) mg/dL Magnesium 1.8 (1.7-2.3) mg/dL Total Bilirubin 3.3 H (0.2-1.0) mg/dL Direct Bilirubin 2.13 H (0.03-0.18) mg/dL AST 148 H (10-42) IU/L ALT 108 H (10-60) IU/L Alkaline Phosphatase 1872 H (42-121) IU/L Total Protein 4.4 L (6.4-8.9) g/dL Albumin 2.3 L (3.2-5.5) g/dL Globulin 2.1 (2.1-4.2) g/dL ABX Reporting Has patient been on IV antibiotics over the past 48 hours?: Yes Assessment/Plan - Problem List (1) Acute metabolic encephalopathy Impression: The patient's encephalopathy is improved today. She still is a bit confused but is alert and oriented x 3 which is a significant improvement. (3) CLL (chronic lymphocytic leukemia) Impression: It is unclear whether she has transformed into a lymphoma. I spoke to her former oncologist yesterday who recommended MRCP if her liver function test started to trend downwards. If this were to be worked up she would need an MRCP and she would need a liver biopsy and urgent GI evaluation. Will discuss with the daughter when I see her. Further plans to follow (4) Elevated liver function tests Impression: Her liver function test are slightly better today and the patient's mentation is improving. I did check an INR today and it is 1.4. Will go ahead and order an MRCP. Will also discuss further with the patient's daughter. ACP note to follow (5) Hypercalcemia Impression: Likely due to dehydration. Resolved (6) Anorexia Impression: In spite of the fact that the patient's mentation has improved she still is not eating well. Continue to encourage good p.o. intake and supplements (7) Severe protein-calorie malnutrition Impression: Continue supplements. She has lost quite a bit of weight and is not eating or drinking enough to sustain herself. (8) Cerebral atherosclerosis Impression: Noted on CT imaging. She may have some early vascular dementia (9) Anemia Impression: Stable (10) Hyponatremia Impression: Somewhat improved. This appears to be chronic and stable (11) Hyperkalemia Impression: Continue to monitor. Quite mild (12) Sarcopenia Impression: The patient has sarcopenia with subsequent ambulatory dysfunction. She is doing better today and mentating better. Will have further discussions with the patient's daughter on how she would like to proceed. Disposition: Inpatient hospitalization remains necessary. Will order an MRCP today to see if it sheds any light on why her liver function test are so incredibly high. We are having discussions regarding a possible transition to hospice versus subacute rehabilitation. ACP note to follow Time spent: 35 minutes
--- NOTE | 2024-01-11 13:08 | ADVANCE CARE PLANNING NOTE ---
Advance Care Planning - Planning Encounter Date: 01/11/24 Time: 13:10 Purpose: Follow-up regarding goals of care Parties in Attendance: The patient's daughter who is her healthcare power of consumer attorney. Her name is Cinthya Dominguez [phone] - Encounter Goals of Care: Since yesterday the patient's mentation has improved a bit. She is alert and oriented x 3 but still has waxing and waning confusion. Patient's daughter does not think that she is anywhere close to her cognitive baseline. In any event we spoke to her former oncologist yesterday. He recommended that if her liver function test trended downwards to get an MRCP. If we were going to do further workup she would need urgent referral to a assembler lay ups and would need a liver biopsy. After discussing this with the patient's daughter she would like to pursue the MRCP however she also has been talking to her family. The patient's and the patient's brother have quite a few questions and her not yet on board for a possible transition to hospice. The more the patient's daughter has thought about it the more she is leaning towards that is being the best option. We have decided to set up a family meeting tomorrow at 1 PM and hopefully we can all make a decision. By that time her MRCP results will be back and we will have another day to trend her liver function test. Plan: Tomorrow we will follow-up with the family meeting. We plan to discuss her CODE STATUS and have the whole family be on board. We will fill out a POLST form and hopefully will make a firm decision whether we are going to transition to hospice. Code Status: Attempt Resuscitation (For now. Tomorrow we will hopefully have the whole family be on board and on the same page.) Time spent on advance care plannin minutes
[2024-01-11] MEDS ORDERED: GADOTERATE MEGLUMINE 7.5 MMOL/15 ML VIAL ONE (13:15)
[2024-01-11] MEDS: GADOTERATE MEGLUMINE 7.5 MMOL/15 ML VIAL IVP ONE (14:02)
--- NOTE | 2024-01-11 14:57 | MRI Report ---
PROCEDURE: MRCP W/WO INDICATIONS: Adan markedly elevated liver function test CONTRAST: CLARISCAN 13.4 ml TECHNIQUE: Coronal ultra fast SE through the abdomen, axial 2-D spoiled GE in- and [id number], and breath-hold T2 FSE with fat saturation through the biliary system and pancreas. Oblique coronal and axial thin- slice ultra fast SE, radial thick-slab ultra fast SE centered on the extrahepatic bile ducts. COMPARISON: CT abdomen pelvis 01/08/2024 FINDINGS: Image quality: Significant limitation results from motion artifact and patient's inability to suspend respirations. Gallbladder: Cholelithiasis Biliary tree: Nonvisualized due to motion artifact Pancreas: No pancreatic ductal dilation. Lung bases and heart: Unremarkable. Liver: No solid mass. Spleen: Splenomegaly, 17.4 cm Adrenals: No adrenal nodule. Kidneys and ureters: No hydronephrosis. No renal cystic lesion which requires follow up. No solid mas s. Bowel and peritoneum: No bowel distension. No pathologic free fluid. Vessels: No infrarenal aortic aneurysm. Bones: No aggressive osseous abnormality. Other: No significant ventral hernia. IMPRESSION: Splenomegaly. Unremarkable liver without intrahepatic biliary ductal dilatation. Significant motion artifact obscures extrahepatic bile ducts Reviewed by: Adam Kwon MD on 01/11/2024 1:55 PM AKDT Approved by: Adam Kwon MD on 01/11/2024 1:55 PM AKDT Station ID: [id number]
[2024-01-12 05:18] LABS: BASOPHILS % (AUTO) 0.1 %; EOSINOPHILS % (AUTO) 0.1 %; HCT - HEMATOCRIT 26.8 % (37.0-47.0); HGB - HEMOGLOBIN 8.2 g/dL (12.0-16.0); LYMPHOCYTES # (AUTO) 2.5 10^3/uL (1.5-3.5); LYMPHOCYTES % (AUTO) 35.7 %; MEAN CORPUSCULAR HEMOGLOBIN 25.2 pg (27.0-31.0); MEAN CORPUSCULAR HGB CONC 30.6 g/dL (32.0-36.0); MEAN CORPUSCULAR VOLUME 82.2 fL (81.0-99.0); MEAN PLATELET VOLUME 9.3 fL (7.9-10.8); MONOCYTES # (AUTO) 0.5 10^3/uL (0.0-1.0); MONOCYTES % (AUTO) 6.9 %; NEUTROPHILS # (AUTO) 3.8 10^3/uL (1.5-6.6); NEUTROPHILS % (AUTO) 55.2 %; PLT - PLATELET COUNT 125 10^3/uL (130-450); RED BLOOD COUNT 3.26 10^6/uL (4.20-5.40)
[2024-01-12 05:29] LABS: BILIRUBIN,DIRECT 2.66 mg/dL (0.03-0.18); MAGNESIUM 1.9 mg/dL (1.7-2.3); PHOSPHORUS 2.3 mg/dL (2.5-5.0)
[2024-01-12 05:40] LABS: POTASSIUM 3.9 mmol/L (3.5-4.5)
[2024-01-12 05:44] LABS: SLIDE REVIEW? Indicated
[2024-01-12 06:13] LABS: PLATELET ESTIMATE, MANUAL NORMAL (130-450,000) (NORMAL); PLATELET MORPHOLOGY NORMAL APPEARANCE (NORMAL)
[2024-01-12 06:25] LABS: ALBUMIN 2.4 g/dL (3.2-5.5); BILIRUBIN,TOTAL 4.2 mg/dL (0.2-1.0); CALCIUM 9.1 mg/dL (8.5-10.3); CREATININE 0.9 mg/dL (0.6-1.3); TOTAL PROTEIN 4.6 g/dL (6.4-8.9)
[2024-01-12 08:27] LABS: INR 1.4 (0.8-1.2); PT - PROTHROMBIN TIME 14.5 secs (9.9-12.6)
--- NOTE | 2024-01-12 10:16 | PROVIDER PROGRESS NOTE ---
Subjective - Prog Note Date Prog Note Date: 01/12/24 Prog Note Time: 10:15 - Subjective Pt reports feeling: Improved Subjective: The patient is sitting up in her bed. She is awake and alert and oriented x 3 although she does get confused regarding her situation at times. She tells me that she is not having any pain. She ate a couple of bites of breakfast this morning according to the nursing staff. She has no complaints that she is able to vocalize today. I did spend quite a bit of time discussing her clinical situation and she seemed quite confused. A family meeting is planned for 1 PM today and hopefully the family can come together. The patient's daughter who is the healthcare power of litigation attorney associate is leaning towards hospice at discharge. Current Medications - Current Medications Current Medications: Active Medications Baclofen (Baclofen 10 Mg Tablet) 5 mg PO TID PRN PRN Reason: Cramp Famotidine (Famotidine 20 Mg Tablet) 20 mg PO DAILY [facility] Last Admin: 01/12/24 08:27 Dose: 20 mg Sodium Chloride (Normal Saline 0.9%) 1,000 mls @ 100 mls/hr IV .Q10H [facility] Last Admin: 01/12/24 01:27 Dose: 100 mls/hr Lidocaine (Lidocaine Patch 5%) 1 patch TOP DAILY PRN PRN Reason: Moderate Pain (Level 4-6) Last Admin: 01/10/24 20:54 Dose: 1 patch Magnesium Oxide (Magnesium Oxide 400 Mg Tablet) 400 mg PO DAILY [facility] Last Admin: 01/12/24 08:27 Dose: 400 mg Ondansetron HCl (Ondansetron 4 Mg/2 Ml Vial) 4 mg IVP Q6HR PRN PRN Reason: Nausea / Vomiting Last Admin: 01/09/24 08:55 Dose: 4 mg Ondansetron HCl (Ondansetron Odt 4 Mg Tablet) 4 mg TL Q6H PRN PRN Reason: Nausea / Vomiting Polyethylene Glycol (Polyethylene Glycol 3350 17 Gm Packet) 17 gm PO DAILY [facility] Last Admin: 01/12/24 08:27 Dose: 17 gm Prednisone (Prednisone 20 Mg Tablet) 20 mg PO DAILY [facility] Stop: 01/18/24 08:59 Last Admin: 01/12/24 08:27 Dose: 20 mg Senna (Senna 8.6 Mg Tablet) 8.6 - 17.2 mg PO DAILY [facility] Last Admin: 01/12/24 08:28 Dose: Not Given Sodium Chloride (Sodium Chloride Flush 0.9% 10 Ml Syringe) 10 ml IVP PRN PRN PRN Reason: NEEDED PER PROVIDER ORDERS Sodium Chloride (Sodium Chloride Flush 0.9% 10 Ml Syringe) 10 ml IVP 0100,0900,1700 [facility] Last Admin: 01/12/24 10:09 Dose: Not Given Acetaminophen [Aphen] 325 mg PO Q4HR PRN 01/09/24 Triamcinolone Acetonide 1 each TOP PRN PRN 01/09/24 predniSONE [Prednisone] See Rx Instructions .ROUTE .COMPLEX 01/09/24 Objective - Vital Signs/Intake & Output Reviewed Vital Signs: Yes Vital Signs: Vital Signs x48h Temp Pulse Resp BP Pulse Ox 01/12/24 08:00 36.7 C 72 18 121/77 96 Intake & Output: Intake & Output 01/09/24 01/10/24 01/11/24 01/12/24 23:59 23:59 23:59 23:59 Intake Total 2533 2551.667 2518.333 1133.333 Output Total 1000 1600 1500 600 Balance 1533 694.822 3486.333 533.333 - Objective General Appearance: positive: No acute distress, Other (She is awake alert and oriented x 3 but gets quite confused regarding the circumstances of her admission and medical status. She has bitemporal muscle wasting bilaterally) Eyes Bilateral: positive: Normal inspection ENT: positive: ENT inspection nml Neck: positive: Nml inspection Respiratory: positive: Chest non-tender, No respiratory distress, Breath sounds nml Cardiovascular: positive: Regular rate & rhythm, No murmur, No gallop. negative: Friction rub Abdomen: positive: Non-tender, No organomegaly Skin: positive: Color nml, No rash, Warm, Dry Extremities: positive: Other (She has muscle wasting and fat loss throughout all 4 extremities) Neurologic/Psychiatric: positive: Oriented x3, CN's nml (2-12) (But still quite confused regarding her status and circumstances of this admission) - Lab Results Fish Bones: 01/12/24 05:00 01/12/24 05:00 Other Labs: Lab Results x24hrs 07/28/24 07/28/24 07/28/24 Range/Units 08:09 08:09 05:00 WBC (4.8-10.8) x10^3/uL RBC (4.20-5.40) 10^6/uL Hgb (12.0-16.0) g/dL Hct (37.0-47.0) % MCV (81.0-99.0) fL MCH (27.0-31.0) pg MCHC (32.0-36.0) g/dL RDW (12.0-15.0) % Plt Count (130-450) 10^3/uL MPV (7.9-10.8) fL Neut # (Auto) (1.5-6.6) 10^3/uL Lymph # (Auto) (1.5-3.5) 10^3/uL [place] # (Auto) (0.0-1.0) 10^3/uL Eos # (Auto) (0.0-0.7) 10^3/uL Baso # (Auto) (0.0-0.1) 10^3/uL Absolute Nucleated RBC x10^3/uL Nucleated RBC % /100WBC Manual Slide Review Platelet Estimate (NORMAL) Platelet Morphology (NORMAL) PT 14.5 H (9.9-12.6) secs INR 1.4 H (0.8-1.2) Sodium 128 L (135-145) mmol/L Potassium 3.9 (3.5-4.5) mmol/L Chloride 98 L (101-111) mmol/L Carbon Dioxide 25 (21-32) mmol/L Anion Gap 5.0 L (6-13) BUN 21 H (6-20) mg/dL Creatinine 0.9 (0.6-1.3) mg/dL Estimated GFR (MDRD) 60 L (>89) Glucose 87 (74-104) mg/dL Calcium 9.1 (8.5-10.3) mg/dL Phosphorus 2.3 L (2.5-5.0) mg/dL Magnesium 1.9 (1.7-2.3) mg/dL Total Bilirubin 4.2 H (0.2-1.0) mg/dL Direct Bilirubin 2.66 H (0.03-0.18) mg/dL AST 221 H (10-42) IU/L ALT 135 H (10-60) IU/L Alkaline Phosphatase 2173 H (42-121) IU/L Ammonia 28.6 (18-72) umol/L Total Protein 4.6 L (6.4-8.9) g/dL Albumin 2.4 L (3.2-5.5) g/dL Globulin 2.2 (2.1-4.2) g/dL 01/12/24 Range/Units 05:00 WBC 7.0 (4.8-10.8) x10^3/uL RBC 3.26 L (4.20-5.40) 10^6/uL Hgb 8.2 L (12.0-16.0) g/dL Hct 26.8 L (37.0-47.0) % MCV 82.2 (81.0-99.0) fL MCH 25.2 L (27.0-31.0) pg MCHC 30.6 L (32.0-36.0) g/dL RDW 20.0 H (12.0-15.0) % Plt Count 125 L (130-450) 10^3/uL MPV 9.3 (7.9-10.8) fL Neut # (Auto) 3.8 (1.5-6.6) 10^3/uL Lymph # (Auto) 2.5 (1.5-3.5) 10^3/uL [place] # (Auto) 0.5 (0.0-1.0) 10^3/uL Eos # (Auto) 0.0 (0.0-0.7) 10^3/uL Baso # (Auto) 0.0 (0.0-0.1) 10^3/uL Absolute Nucleated RBC 0.00 x10^3/uL Nucleated RBC % 0.0 /100WBC Manual Slide Review Indicated Platelet Estimate NORMAL (130-450,000) (NORMAL) Platelet Morphology NORMAL APPEARANCE (NORMAL) PT (9.9-12.6) secs INR (0.8-1.2) Sodium (135-145) mmol/L Potassium (3.5-4.5) mmol/L Chloride (101-111) mmol/L Carbon Dioxide (21-32) mmol/L Anion Gap (6-13) BUN (6-20) mg/dL Creatinine (0.6-1.3) mg/dL Estimated GFR (MDRD) (>89) Glucose (74-104) mg/dL Calcium (8.5-10.3) mg/dL Phosphorus (2.5-5.0) mg/dL Magnesium (1.7-2.3) mg/dL Total Bilirubin (0.2-1.0) mg/dL Direct Bilirubin (0.03-0.18) mg/dL AST (10-42) IU/L ALT (10-60) IU/L Alkaline Phosphatase (42-121) IU/L Ammonia (18-72) umol/L Total Protein (6.4-8.9) g/dL Albumin (3.2-5.5) g/dL Globulin (2.1-4.2) g/dL
--- NOTE | 2024-01-12 14:07 | ADVANCE CARE PLANNING NOTE ---
Advance Care Planning - Planning Encounter Date: 01/12/24 Time: 13:00 Purpose: Family meeting to discuss goals of care Parties in Attendance: Cinthya Dominguez [phone] [facility], The patient's son Adan and the patient's Dima Ferro Decisional Capacity of the Patient: The patient is confused and cannot make decisions for herself at this time. - Encounter Subjective/Patient's Story: The patient is an 83-year-old female who was admitted with encephalopathy, anorexia and weakness. She has underlying CLL. Objective/Medical Story: When the patient arrived in the emergency room she was found to have markedly elevated liver function test that had significantly worsened over the past 3 weeks. Discussions were had with the patient's oncologist who feels that her liver is failing. She may be transforming her CLL but clearly has some sort of infiltrative process going on in the liver. During the course of this hospitalization she has been hydrated, her electrolytes have been repleted and she has been treated for a possible urinary tract infection. Unfortunately she has not had any meaningful improvement in her liver continues to fail. Goals of Care: The patient's whole family came together to discuss goals of care today. The patient's brother and had quite a few questions regarding her liver and the treatment options that were available to them. I had spoken to her former oncologist who says he is not sure what is going on with her liver. She could have some transformation to lymphoma that is infiltrating her liver but this would be unable to be determined and less we did a liver biopsy and she had a full GI workup. Unfortunately the trajectory at which her liver is failing would not make this a feasible option. Also if we did find out that she had lymphoma due to her poor functional status she would not be a candidate for further treatment. I spent quite some time with the family discussing all of this and took time to answer all of their questions carefully. After a long discussion the whole family is on board with a palliative care approach and they want to take her home with home hospice. Her care coordinators were present at this meeting and will be setting up home hospice services. At the request of the patient's he would like for us to check labs while she is in the hospital so that he knows how bad they are at discharge. He also would like me to correct electrolytes and get her in his good shape as possible before she goes home. His wishes will be honored. I also discussed CODE STATUS. The patient has been changed to a DO NOT RESUSCITATE. The family would not want any heroic measures at the end of life. No chest compressions or intubation or escalation of her care to the ICU. Other than checking labs and replete electrolytes and fluids if needed they do not want any further workup or aggressive care. Hospice will be set up in the home setting and she will be discharged to home as soon as we get all of that set up. Code Status: Do Not Attempt Resuscitation Time spent on advance care plannin minutes
[2024-01-13] MEDS: BACLOFEN 10 MG TABLET PO PRN (02:41)
[2024-01-13 05:41] LABS: BASOPHILS % (AUTO) 0.1 %; EOSINOPHILS % (AUTO) 0.2 %; HCT - HEMATOCRIT 25.9 % (37.0-47.0); HGB - HEMOGLOBIN 7.9 g/dL (12.0-16.0); LYMPHOCYTES # (AUTO) 2.6 10^3/uL (1.5-3.5); LYMPHOCYTES % (AUTO) 31.6 %; MEAN CORPUSCULAR HEMOGLOBIN 24.6 pg (27.0-31.0); MEAN CORPUSCULAR HGB CONC 30.5 g/dL (32.0-36.0); MEAN CORPUSCULAR VOLUME 80.7 fL (81.0-99.0); MONOCYTES # (AUTO) 0.6 10^3/uL (0.0-1.0); NEUTROPHILS # (AUTO) 4.8 10^3/uL (1.5-6.6); NEUTROPHILS % (AUTO) 59.2 %; PLT - PLATELET COUNT 98 10^3/uL (130-450); RED BLOOD COUNT 3.21 10^6/uL (4.20-5.40); RED CELL DISTRIBUTION WIDTH 19.9 % (12.0-15.0); WHITE BLOOD COUNT 8.1 x10^3/uL (4.8-10.8)
[2024-01-13 06:21] LABS: BILIRUBIN,DIRECT 3.31 mg/dL (0.03-0.18); MAGNESIUM 1.7 mg/dL (1.7-2.3); PHOSPHORUS 2.5 mg/dL (2.5-5.0)
[2024-01-13 06:31] LABS: ALBUMIN 2.4 g/dL (3.2-5.5); BILIRUBIN,TOTAL 5.1 mg/dL (0.2-1.0); CALCIUM 9.2 mg/dL (8.5-10.3); CREATININE 0.8 mg/dL (0.6-1.3); POTASSIUM 3.8 mmol/L (3.5-4.5); TOTAL PROTEIN 4.5 g/dL (6.4-8.9)
--- NOTE | 2024-01-13 08:50 | PROVIDER PROGRESS NOTE ---
Subjective - Prog Note Date Prog Note Date: 01/13/24 Prog Note Time: 08:50 - Subjective Pt reports feeling: No change Subjective: The patient is an 83-year-old female with a past medical history significant for CLL followed by Dr. Lozano. She was brought to the emergency room with encephalopathy, weakness, anorexia and an overall failure to thrive. She apparently has had a significant decline in her functional status over the past 6 months. For the past couple of weeks prior to admission she had increasing confusion and was not ambulating well. She had been followed closely in the oncology clinic and was having issues with worsening liver function test. She had previously had an MRCP which revealed shotty lymphadenopathy and splenomegaly likely in the setting of underlying CLL. She was also screened for hepatitis and autoimmune hepatitis and that whole workup was unrevealing at that time. During her last oncology visit it was recommended that she have an MRI of the brain due to her rapidly declining cognitive status and loss of appetite. In the emergency room she was found to have multiple electrolyte abnormalities and significant worsening of her liver function tests. She was empirically treated for a UTI. Her electrolytes were repleted. She received IV fluids. Unfortunately her liver function test have continued to decline during this hospitalization. I spoke to Dr. Lozano on 2 occasions. He is not sure exactly what is going on. He recommended obtaining the MRI of the brain and an MRCP during this hospitalization. The MRI of the brain revealed mild microvascular ischemic changes but nothing acute. MRCP was unrevealing. Multiple discussions have been had with the patient's family. Per Dr. Lozano if this was going to be worked up she would need a liver biopsy, GI evaluation. It is possible that her CLL is transforming into an infiltrative process in the liver and spleen. At this point her functional status is not good enough for any sort of systemic therapy. Also her markedly elevated liver function test would preclude therapy as well. Yesterday a family meeting was held and a decision was made to transition to hospice. Social work is involved and is in the process of setting up home hospice at home. She likely will go home on Saturday or Saturday of this week once all the arrangements have been made. Today when I saw her there were no family members at the bedside. The nursing staff had gotten her up to a chair to eat her breakfast. She really is not eating very much at all and not enough to sustain herself. Her mentation has improved during this hospitalization and she does know that she is in the hospital and appears to be alert and oriented x 3. However if you talk to her about the details of this hospitalization and her prognosis she becomes quite confused. When I saw her this morning she had no complaints that she was able to vocalize. Nursing staff reports no overnight event Current Medications - Current Medications Current Medications: Active Medications Baclofen (Baclofen 10 Mg Tablet) 5 mg PO TID PRN PRN Reason: Cramp Last Admin: 01/13/24 02:41 Dose: 5 mg Famotidine (Famotidine 20 Mg Tablet) 20 mg PO DAILY [facility] Last Admin: 01/13/24 08:00 Dose: 20 mg Lidocaine (Lidocaine Patch 5%) 1 patch TOP DAILY PRN PRN Reason: Moderate Pain (Level 4-6) Last Admin: 01/10/24 20:54 Dose: 1 patch Magnesium Oxide (Magnesium Oxide 400 Mg Tablet) 400 mg PO DAILY [facility] Last Admin: 01/13/24 08:00 Dose: 400 mg Ondansetron HCl (Ondansetron 4 Mg/2 Ml Vial) 4 mg IVP Q6HR PRN PRN Reason: Nausea / Vomiting Last Admin: 01/09/24 08:55 Dose: 4 mg Ondansetron HCl (Ondansetron Odt 4 Mg Tablet) 4 mg TL Q6H PRN PRN Reason: Nausea / Vomiting Polyethylene Glycol (Polyethylene Glycol 3350 17 Gm Packet) 17 gm PO DAILY [facility] Last Admin: 01/13/24 08:01 Dose: Not Given Prednisone (Prednisone 20 Mg Tablet) 20 mg PO DAILY [facility] Stop: 01/18/24 08:59 Last Admin: 01/13/24 08:00 Dose: 20 mg Senna (Senna 8.6 Mg Tablet) 8.6 - 17.2 mg PO DAILY [facility] Last Admin: 01/13/24 08:01 Dose: Not Given Sodium Chloride (Sodium Chloride Flush 0.9% 10 Ml Syringe) 10 ml IVP PRN PRN PRN Reason: NEEDED PER PROVIDER ORDERS Sodium Chloride (Sodium Chloride Flush 0.9% 10 Ml Syringe) 10 ml IVP 0100,0900,1700 [facility] Last Admin: 01/13/24 08:01 Dose: 10 ml Acetaminophen [Aphen] 325 mg PO Q4HR PRN 01/09/24 Triamcinolone Acetonide 1 each TOP PRN PRN 01/09/24 predniSONE [Prednisone] See Rx Instructions .ROUTE .COMPLEX 01/09/24 Objective - Vital Signs/Intake & Output Vital Signs: Vital Signs x48h Temp Pulse Resp BP Pulse Ox 01/13/24 07:56 37.1 C 76 18 151/67 H 95 Intake & Output: Intake & Output 01/10/24 01/11/24 01/12/24 01/13/24 23:59 23:59 23:59 23:59 Intake Total 2551.667 2518.333 2621.666 Output Total 1600 1500 903 400 Balance 272.129 4536.333 1718.666 -400 - Objective General Appearance: positive: No acute distress, Other (She is increasingly jaundiced) Eyes Bilateral: positive: Other (Sclerae are icteric) ENT: positive: ENT inspection nml Neck: positive: Nml inspection Respiratory: positive: Chest non-tender, No respiratory distress, Breath sounds nml. negative: Wheezes, Rales, Rhonchi Cardiovascular: positive: Regular rate & rhythm, No murmur, No gallop Abdomen: positive: Non-tender, No organomegaly, Nml bowel sounds Back: positive: Nml inspection Skin: positive: No rash, Warm, Dry. negative: Color nml (She is quite jaundiced) Neurologic/Psychiatric: positive: Oriented x3, Other (However she is confused when you talk to her about details of her hospitalization) - Lab Results Fish Bones: 01/13/24 05:24 01/13/24 05:24 Other Labs: Lab Results x24hrs 01/13/24 01/13/24 Range/Units 05:24 05:24 WBC 8.1 (4.8-10.8) x10^3/uL RBC 3.21 L (4.20-5.40) 10^6/uL Hgb 7.9 L (12.0-16.0) g/dL Hct 25.9 L (37.0-47.0) % MCV 80.7 L (81.0-99.0) fL MCH 24.6 L (27.0-31.0) pg MCHC 30.5 L (32.0-36.0) g/dL RDW 19.9 H (12.0-15.0) % Plt Count 98 L (130-450) 10^3/uL MPV 10.0 (7.9-10.8) fL Neut # (Auto) 4.8 (1.5-6.6) 10^3/uL Lymph # (Auto) 2.6 (1.5-3.5) 10^3/uL [place] # (Auto) 0.6 (0.0-1.0) 10^3/uL Eos # (Auto) 0.0 (0.0-0.7) 10^3/uL Baso # (Auto) 0.0 (0.0-0.1) 10^3/uL Absolute Nucleated RBC 0.00 x10^3/uL Nucleated RBC % 0.0 /100WBC Sodium 130 L (135-145) mmol/L Potassium 3.8 (3.5-4.5) mmol/L Chloride 99 L (101-111) mmol/L Carbon Dioxide 27 (21-32) mmol/L Anion Gap 4.0 L (6-13) BUN 18 (6-20) mg/dL Creatinine 0.8 (0.6-1.3) mg/dL Estimated GFR (MDRD) 69 L (>89) Glucose 80 (74-104) mg/dL Calcium 9.2 (8.5-10.3) mg/dL Phosphorus 2.5 (2.5-5.0) mg/dL Magnesium 1.7 (1.7-2.3) mg/dL Total Bilirubin 5.1 H (0.2-1.0) mg/dL Direct Bilirubin 3.31 H (0.03-0.18) mg/dL AST 181 H (10-42) IU/L ALT 130 H (10-60) IU/L Alkaline Phosphatase 2024 H (42-121) IU/L Total Protein 4.5 L (6.4-8.9) g/dL Albumin 2.4 L (3.2-5.5) g/dL Globulin 2.1 (2.1-4.2) g/dL Assessment/Plan - Problem List (1) Acute metabolic encephalopathy Impression: Multifactorial secondary to dehydration, electrolyte abnormalities and worsening liver failure. Her mentation has improved but according to the family she is not back to her cognitive baseline. Her mentation waxes and wanes over the course of the day (2) Acute liver failure Impression: The patient's bilirubin has risen from 4.2-5.1 overnight. She had a slight dip in her alkaline phosphatase and transaminases but this seems to be her pattern. The has requested that we check labs while she is in the hospital so they have an idea on prognosis when they take her home. They would like to get her as tuned up as possible before she goes home with hospice. (3) UTI (urinary tract infection) Impression: She was empirically treated for a possible UTI. She received 3 days of IV Rocephin and then stop we stopped it (4) CLL (chronic lymphocytic leukemia) Impression: I spoke to her former oncologist. At this point due to her poor functional status she would not be a candidate for any sort of systemic therapy. She would need a significant workup to include a liver biopsy and GI evaluation. If her liver continues to fail on the current trajectory she would not survive long enough to get all of this done. His recommendation was that if her liver function test continued to trend upwards then to transition to hospice. (5) Elevated liver function tests Impression: Bilirubin continues to rise. She has had a steady rise in her liver function test over the past 3 to 4 weeks. It has been a significant trend upwards. Continue to follow liver function test during this hospitalization at the request of her family and then she will go home on hospice as soon as all the arrangements can be made. (6) Hypercalcemia Impression: Likely secondary to dehydration. Resolved (7) Anorexia Impression: Unfortunately her appetite has not improved at all. This is likely due to her a cute liver dysfunction. Continue to encourage good p.o. intake and supplements (8) Severe protein-calorie malnutrition Impression: The patient was found to be severely malnourished. She is lost quite a bit of weight. She has not been eating or drinking enough to sustain herself. According to the patient's daughter she was eating less than 200 david a day for a couple of weeks prior to coming to the hospital. Diet as tolerated at this point. (9) Cerebral atherosclerosis Impression: She did have an MRI of the brain. No evidence of underlying malignancy or stroke. She was noted to have microvascular ischemic changes. She may have some early vascular dementia as a result. (10) Anemia Impression: Stable. Related to chronic disease and her CLL (11) Hyponatremia Impression: No doubt related to her acute illness and malignancy. This appears to be chronic and is stable (12) Hyperkalemia Impression: Likely due to dehydration. Resolved (13) Sarcopenia Impression: The patient has sarcopenia with subsequent ambulatory dysfunction. She is able to ambulate and take a few steps. She has seen physical therapy and Occupational Therapy during this hospitalization. Family has chosen to pursue hospice at discharge. Disposition: The patient has acute liver failure. Her liver function test continue to worsen. A decision has been made to go home with hospice. Our social workers are in the process of setting up hospice in the home setting. She will be discharged likely in the next 24 to 48 hours once all of this has been set up. Time spent: 35 minutes
--- NOTE | 2024-01-13 13:49 | Discharge Plan ---
Discharge Plan Problem Reviewed?: Yes Disposition: 50 Hospice/Home DC/Xfer Condition: Poor Prescriptions: predniSONE [Deltasone] See Rx Instructions .ROUTE .COMPLEX #11 tab Diet: Regular (Diet as tolerated) Activity Restrictions: Activity as Tolerated Health Concerns: You were admitted to the hospital with weakness and confusion. You had not been eating or drinking well. You are found to have extremely elevated liver function tests that have worsened over the course of this hospitalization. I have spoken to your former oncologist regarding the plan of care. There are some concerns that your CLL may have transformed. It seems that you have some sort of infiltrative process going on in the liver and unfortunately have developed acute liver failure. Discussions were had with your family and a decision has been made to make the transition to palliative care and hospice at discharge. Unfortunately due to the severity of your liver failure and how progressive it has become you really are not a candidate for any sort of treatment if the CLL has transformed. I am setting up hospice services at discharge. Your prednisone will be tapered over the next week or so. I have written a taper at discharge. Assessment: 1. Acute metabolic encephalopathy I believe this was multifactorial secondary to worsening liver failure, dehydration and electrolyte abnormalities. Mentation has improved but she is not back to her cognitive baseline. Family is pursuing hospice at discharge 2. Acute liver failure The patient's bilirubin has risen from 4.2-5.1 overnight. She has had a marked increase in her alkaline phosphatase and transaminases. Due to the rapid progression of her liver failure it is not felt that there is even time to pursue a workup. Family has declined liver biopsy and GI workup as she likely would not be a candidate for any sort of intervention due to her poor functional status. Her oncologist agrees with this plan. 3. Urinary tract infection She was empirically treated for a possible UTI. She received 3 days of IV Rocephin which should be sufficient 4. CLL Again I have spoken to her former oncologist. At this point due to her poor functional status she would not be a candidate for any sort of systemic therapy or if her CLL has transformed. She would need a significant workup to include liver biopsy and GI evaluation. If her liver continues to fail on the current trajectory she would not survive long enough to get all of this done. His recommendation was that if her liver function test continue to trend upwards he would recommend to transition to hospice 5. Elevated liver function test Bilirubin continues to rise. The family has made a decision to pursue hospice at discharge 6. Hypercalcemia Likely secondary to dehydration. Resolved 7. Anorexia This is likely due to her liver failure. Unfortunately her appetite has not improved much. She should have diet as tolerated after discharge 8. Severe protein calorie malnutrition She has been seen by the clinical dietitian. She does meet [place] criteria. She has nutritional intake of less than 50% of recommended intake for greater than 2 weeks. She is lost 6 kg in the past 2 months with an 8% decrease in total body weight. She has muscle wasting and fat loss noticed throughout all of her extremities. She continues to not eat or drink very well. Diet as tolerated with hospice 9. Cerebral atherosclerosis She did have an MRI of the brain. No evidence of underlying malignancy or stroke. She was noted to have microvascular ischemic changes and may have some early vascular dementia as a result 10. Anemia Hemoglobin has been relatively stable. This is related to chronic disease and her CLL 11. Hyponatremia No doubt related to her acute illness and malignancy. This was stable during this hospitalization 12. Hyperkalemia Likely due to dehydration. Resolved 13. Sarcopenia with ambulatory dysfunction The patient has increasing weakness and subsequent ambulatory dysfunction. She is able to ambulate and take a few steps. She has been seen by physical therapy and Occupational Therapy. Family has chosen to pursue hospice at discharge. Activity as tolerated going forward Follow-Up Care: Hospice No Smoking: If you smoke, Please STOP! Call for help. Follow-up with: Belen Ryan MD [Primary Care Provider] -
--- NOTE | 2024-01-13 14:00 | DISCHARGE SUMMARY ---
Discharge Summary Admit Date: 01/08/24 Discharge Date: 01/13/24 Discharging Provider: Chanell Ellis PA-C Primary Care Provider: Dr Ryan Code Status: Do Not Attempt Resuscitation Condition at Discharge: Poor Discharge Disposition: 50 Hospice/Home DC/Xfer - DIAGNOSES Discharge Diagnoses with Status of Each Condition: 1. Acute metabolic encephalopathy I believe this was multifactorial secondary to worsening liver failure, dehydration and electrolyte abnormalities. Mentation has improved but she is not back to her cognitive baseline. Family is pursuing hospice at discharge 2. Acute liver failure The patient's bilirubin has risen from 4.2-5.1 overnight. She has had a marked increase in her alkaline phosphatase and transaminases. Due to the rapid progression of her liver failure it is not felt that there is even time to pursue a workup. Family has declined liver biopsy and GI workup as she likely would not be a candidate for any sort of intervention due to her poor functional status. Her oncologist agrees with this plan. 3. Urinary tract infection She was empirically treated for a possible UTI. She received 3 days of IV Rocephin which should be sufficient 4. CLL Again I have spoken to her former oncologist. At this point due to her poor functional status she would not be a candidate for any sort of systemic therapy or if her CLL has transformed. She would need a significant workup to include liver biopsy and GI evaluation. If her liver continues to fail on the current trajectory she would not survive long enough to get all of this done. His recommendation was that if her liver function test continue to trend upwards he would recommend to transition to hospice 5. Elevated liver function test Bilirubin continues to rise. The family has made a decision to pursue hospice at discharge 6. Hypercalcemia Likely secondary to dehydration. Resolved 7. Anorexia This is likely due to her liver failure. Unfortunately her appetite has not improved much. She should have diet as tolerated after discharge 8. Severe protein calorie malnutrition She has been seen by the clinical dietitian. She does meet [place] criteria. She has nutritional intake of less than 50% of recommended intake for greater than 2 weeks. She is lost 6 kg in the past 2 months with an 8% decrease in total body weight. She has muscle wasting and fat loss noticed throughout all of her extremities. She continues to not eat or drink very well. Diet as tolerated with hospice 9. Cerebral atherosclerosis She did have an MRI of the brain. No evidence of underlying malignancy or stroke. She was noted to have microvascular ischemic changes and may have some early vascular dementia as a result 10. Anemia Hemoglobin has been relatively stable. This is related to chronic disease and her CLL 11. Hyponatremia No doubt related to her acute illness and malignancy. This was stable during this hospitalization 12. Hyperkalemia Likely due to dehydration. Resolved 13. Sarcopenia with ambulatory dysfunction The patient has increasing weakness and subsequent ambulatory dysfunction. She is able to ambulate and take a few steps. She has been seen by physical therapy and Occupational Therapy. Family has chosen to pursue hospice at discharge. Activity as tolerated going forward - HPI History of Present Illness: From the admission HP: Ms Ferro is an 83 yo F with history of CLL diagnosed in 2013. Approximately 6 weeks ago she was started on steroids (per daughter suspect this was in attempt to improve her functional status, fatigue, poor appetite) which were subsequently tapered off approximately 3 weeks ago. She is now back on 20 mg prednisone daily, started 4 days ago for symptom management but has not been very helpful. She presents to the ER with complaints of confusion, generalized weakness. History is obtained from patient's daughter at bedside. Patient is feeling too tired to speak/participate at this time. Per her daughter she has been eating <200 calories per day, she attempts to encourage protein drinks etc but has been unsuccessful. Very poor appetite, very tired all the time. She cannot care for her at home, she is too weak. They have been meeting with their oncologist regularly, hoping to treat CLL but patient's counts have not been elevated. Also now with her poor functional status she is not a candidate for chemotherapy at this time. At last office visit recommendation was for MRI brain to evaluate for [employer] lymphoma, this has not been scheduled yet. - HOSPITAL COURSE Hospital Course: The patient is an 83-year-old female with a past medical history significant for CLL followed by Dr. Lozano. She was brought to the emergency room with encephalopathy, weakness, anorexia and an overall failure to thrive. She apparently has had a significant decline in her functional status over the past 6 months. For the past couple of weeks prior to admission she had increasing confusion and was not ambulating well. She had been followed closely in the oncology clinic and was having issues with worsening liver function test. She had previously had an MRCP which revealed shotty lymphadenopathy and splenomegaly likely in the setting of underlying CLL. She was also screened for hepatitis and autoimmune hepatitis and that whole workup was unrevealing at that time. During her last oncology visit it was recommended that she have an MRI of the brain due to her rapidly declining cognitive status and loss of appetite. In the emergency room she was found to have multiple electrolyte abnormalities and significant worsening of her liver function tests. She was empirically treated for a UTI. Her electrolytes were repleted. She received IV fluids. Unfortunately her liver function test have continued to decline during this hospitalization. I spoke to Dr. Lozano on 2 occasions. He is not sure exactly what is going on. He recommended obtaining the MRI of the brain and an MRCP during this hospitalization. The MRI of the brain revealed mild microvascular ischemic changes but nothing acute. MRCP was unrevealing. Multiple discussions have been had with the patient's family. Per Dr. Lozano if this was going to be worked up she would need a liver biopsy, GI evaluation. It is possible that her CLL is transforming into an infiltrative process in the liver and spleen. At this point her functional status is not good enough for any sort of systemic therapy. Also her markedly elevated liver function test would preclude therapy as well. Yesterday a family meeting was held and a dec ision was made to transition to hospice. I was notified by the media planner that all arrangements have already been made and the patient can go home this afternoon. A hospice medication order set has been sent to her pharmacy. Would recommend that she taper her prednisone over the next 2 weeks and I have written the for a taper accordingly. She should have a diet as tolerated. I have disc ussed all of this extensively with the patient's daughter and she is in agreement with this plan. The patient is in poor but stable condition on the day of discharge. - ALLERGIES Allergies/Adverse Reactions: Allergies Allergy/AdvReac Type Severity Reaction Status Date / Time codeine AdvReac Mild Nausea Verified 12/29/23 08:12 hydrocodone bitartrate * AdvReac Mild Nausea Verified 12/29/23 08:12 [From Vicodin] oxycodone HCl * AdvReac Mild Nausea Verified 12/29/23 08:12 [From Percocet] amlodipine AdvReac Unknown Verified 12/29/23 08:12 doxazosin AdvReac Unknown Verified 12/29/23 08:12 homatropine [From Hycodan] AdvReac Unknown Verified 12/29/23 08:12 hydrocodone [From Hycodan] AdvReac Unknown Verified 12/29/23 08:12 lisinopril AdvReac Unknown Verified 12/29/23 08:12 morphine AdvReac Nausea Verified 12/29/23 08:12 Penicillins AdvReac Nausea Verified 12/29/23 08:12 scopolamine AdvReac Unknown Verified 12/29/23 08:12 tramadol AdvReac Unknown Verified 12/29/23 08:12 beta basia AdvReac Unknown Uncoded 12/29/23 08:12 - MEDICATIONS Home Medications: Ambulatory Orders Medication Instructions Recorded Confirmed Famotidine [Pepcid] 20 mg PO DAILY #20 tablet 12/29/23 01/09/24 Triamcinolone Acetonide 1 each TOP PRN PRN 01/09/24 01/09/24 Baclofen [Lioresal] 5 mg PO TID PRN tab 01/13/24 polyethylene glycoL 3350 [Miralax] 17 gm PO DAILY packet 01/13/24 predniSONE [Deltasone] See Rx Instructions .ROUTE 01/13/24 .COMPLEX #11 tab - PHYSICAL EXAM AT DISCHARGE General Appearance: positive: No acute distress, Other (The patient is pleasantly confused) Eyes Bilateral: positive: Normal inspection ENT: positive: ENT inspection nml Neck: positive: Nml inspection Respiratory: positive: Chest non-tender, No respiratory distress Cardiovascular: positive: Regular rate & rhythm, No murmur, No gallop. negative: Friction rub Abdomen: positive: Non-tender, No organomegaly, Nml bowel sounds Skin: positive: Color nml, No rash, Warm, Dry Neurologic/Psychiatric: positive: Oriented x3, CN's nml (2-12) - LABS Result Diagrams: 01/13/24 05:24 01/13/24 05:24 - SEPSIS Current Stage of Sepsis: Ruled out - FOLLOW UP Follow Up: The patient will be discharged home with home hospice services. Hospice will be assuming her care - TIME SPENT Time Spent in Discharge (Minutes): 45
[2024-01-13 15:51] VITALS: BP 142/66; O2SAT 96
== END 2024-01-13 17:39 | disposition hospice, home (50) | DRG 70 ==
LOC: EDUNIT# → ED 18:20 → MS2 01-09 00:08
PROVIDERS: ADMIT Student in an Organized Health Care Education/Training Program; ATTEND Physician Assistant
DX: G93.41 Metabolic encephalopathy (principal); E43 Unspecified severe protein-calorie malnutrition; K72.00 Acute and subacute hepatic failure without coma; R53.1 Weakness; R53.83 Other fatigue; N39.0 Urinary tract infection, site not specified; C91.10 Chronic lymphocytic leukemia of B-cell type not having achieved remission; E87.1 Hypo-osmolality and hyponatremia; Z11.52 Encounter for screening for COVID-19; E86.0 Dehydration; R74.01 Elevation of levels of liver transaminase levels; E80.6 Other disorders of bilirubin metabolism; R79.89 Other specified abnormal findings of blood chemistry; E83.52 Hypercalcemia; R63.0 Anorexia; I67.2 Cerebral atherosclerosis; D63.8 Anemia in other chronic diseases classified elsewhere; D63.0 Anemia in neoplastic disease; E87.5 Hyperkalemia; M62.84 Sarcopenia; I10 Essential (primary) hypertension; R62.7 Adult failure to thrive; Z68.27 Body mass index [BMI] 27.0-27.9, adult; Z86.711 Personal history of pulmonary embolism; Z86.718 Personal history of other venous thrombosis and embolism
CPT/HCPCS: 36415; 70450; 70553; 74177; 74183; 80048; 80053; 80069; 80076; 81001; 82140; 82977; 83615; 83735; 84100; 84550; 85025; 85045; 85610; 85651; 86140; 87086; 87633; 97162; 97166; 99284; 99285; A9270; J1650; J7512; Q9967; 81003

== ENCOUNTER 2024-01-13 17:39 | Outpatient (CLI) | payer MEDICARE | END 2024-01-13 23:59 | disposition home or self-care (01) | LOC: EMS 17:39 | PROVIDERS: ATTEND Physician Assistant | DX: R41.0 Disorientation, unspecified (principal); R53.83 Other fatigue; R53.1 Weakness | CPT/HCPCS: A0425; A0428 ==